=== PATIENT | male | born 1960 | race Caucasian/White ===

== ENCOUNTER 2016-05-30 01:53 | Inpatient (IN) | payer OTHER ==
[2016-05-30] VITALS (7 sets, daily range): BP systolic 116–160; BP diastolic 69–109; PULSE 76–112; TEMP 36.8–37.2; O2SAT 92–97; Ht 172.7 cm; Wt 120.8 kg
[~2016-05-30] VITALS: Ht 172.7 cm; Wt 120.8 kg
[~2016-05-30 01:53] MED LIST: ACT15 PO; ALL300 PO; AMT50 PO; CRD200 PO; FRS/40 PO; GLC500 PO; LISI5TAB3 PO; LPRUNK PO; NABU500T3 PO; OMEP40CA PO; PRAV20TA PO; PRD75 PO; TRAM-10 PO
[2016-05-30] MEDS ORDERED: SODIUM CHLORIDE 0.9% 1000ML 1,000 ML IV ONE (02:00)
[2016-05-30] MEDS ORDERED: SODIUM CHLORIDE 0.9% 1000ML 1,000 ML IV STA ×2 (02:00→02:34)
[2016-05-30 02:12] LABS: HEMATOCRIT 47.7 % (42-52); MEAN CELL VOLUME 83.7 fL (80-100); MEAN CORPUSCULAR HEMOGLOBIN 29.8 pg (25-34); MEAN CORPUSCULAR HGB CONC 35.6 g/dl (32-36); MEAN PLATELET VOLUME 10.1 fL (7.4-10.4); PLATELET COUNT 241 K/uL (130-400); WHITE BLOOD COUNT 21.01 K/uL (4.8-10.8)
[2016-05-30 02:21] LABS: BUN/CREATININE RATIO 12.2 (10-20); CALCIUM 9.2 mg/dl (8.5-10.1); CREATININE 1.5 mg/dl (0.60-1.40); POTASSIUM 3.9 mmol/L (3.5-5.1)
--- NOTE | 2016-05-30 02:22 | EMERGENCY ROOM VISIT NOTE ---
History Report prepared by Loli: Nica Gomes Under the Supervision of: Dr. Kamran Monge M.D. First contact with patient: 01:55 Stated Complaint: ALTERED MENTAL STATUS History of Present Illness The patient is a 56 year old male who presents to the Emergency Room with complaints of a persistent altered mental status that began prior to arrival. Per EMS, ALS was called this evening by the patient's mother because she could not get in touch with the patient. EMS states that the last known well time is unknown. EMS reports that the patient has a history of diabetes and his blood glucose was 208 mg/dL. EMS notes that the patient is warm to touch, but the patient states that he feels chilled. The patient denies any pain or cough. He denies any recent fall. The patient reports medication compliance. The history is limited secondary to altered mental status. Denies headache or other complaints however I'm unsure how reliable the history is. Source of History: patient, EMS History Limited By: AMS Onset: prior to arrival Position: other (global) Quality: other (altered mental status) Associated Symptoms: + chills, No cough Note: Associated Symptoms: blood glucose 208 mg/dL. Review of Systems The history is limited secondary to altered mental status. Past Medical & Surgical Medical Problems: (1) Altered mental status (2) Diabetes Old medical records were reviewed. Nurse's notes were reviewed and I agree with. He does have a history of A. fib. He has a bag full of medicine which includes some psychiatric medications Family History No pertinent family history stated. Social History Marital Status: single Occupation Status: unemployed Current/Historical Medications Scheduled Allopurinol (Zyloprim), 300 MG PO DAILY Amitriptyline Hcl (Elavil), 50 MG PO HS Buspirone Hcl (Buspirone Hcl), 15 MG PO BID Fluoxetine (Prozac), 40 MG PO BID Levothyroxine Sodium (Levothyroxine Sodium), 75 MCG PO DAILY Lisinopril (Zestril), 5 MG PO DAILY Metformin Hcl (Glucophage), 1,500 MG PO DAILY Metoprolol Tartrate (Lopressor) (Lopressor), 50 MG PO BID Omeprazole (Prilosec), 40 MG PO DAILY Pravastatin (Pravachol ), 40 MG PO DAILY Rivaroxaban (Xarelto), 20 MG PO DAILY Trazodone Hcl (Trazodone), 100 MG PO HS Scheduled PRN Acetaminophen (Tylenol), 500 MG PO Q4H PRN for Pain Allergies Uncoded Allergies: BEE STINGS (Allergy, Unknown, UNKNOWN, 05/30/16) SULFA DRUGS (Allergy, Unknown, UNKNOWN, 05/30/16) Physical Exam Vital Signs Date Time Temp Pulse Resp B/P Pulse Ox O2 Delivery O2 Flow Rate FiO2 05/30/16 03:31 101 24 138/86 94 Nasal Cannula 3.0 05/30/16 03:02 95 18 161/96 90 Nasal Cannula 3.0 05/30/16 01:54 39.3 109 23 179/108 95 Room Air Physical Exam General: Middle aged male who is awake answers most questions appropriately, but others not. Mildly agitated at times. HEENT: Normal cephalic atraumatic. Pupils are equal round and reactive to light. SClera anicteric Extraocular movements are intact. Oropharynx is pink with moist mucous membranes. No swelling of the mouth lips or tongue. Neck: Supple with a midline trachea. No meningeal signs or stiffness, no JVD or bruits. No Stridor. Negative Kernig and Brudzinski signs Chest: Clear to auscultation bilaterally. No wheezes or rhonchi. No increased work of breathing. Heart: regular rate and rhythm. Abdomen: Soft nontender, nondistended without rebound guarding or rigidity. Extremities: No cyanosis clubbing or edema. No calf tenderness or assymetry Spine/Back. Non tender to palpation. No CVA tenderness Skin: Warm to touch. Good turgor without rashes. Neurologic exam: Cranial nerves two through 12 are intact. Motor and sensation are intact and symmetrical throughout. Medical Decision & Procedures ER Provider Diagnostic Interpretation: Chest x-ray per my interpretation reveals cardiomegaly, possible infiltrate along right heart border. Limited due to body habitus. CT results as stated below per my review and radiologist interpretation: CT Head: Focal areas of hypoattenuation within the occipital lobes left greater than right, and posterior left temporal lobe. Findings likely represent remote infarcts. If there is clinical concern for infection, consider MRI with contrast. Presumed remote lacunar infarcts within the bilateral basal ganglia. Small vessel ischemic disease. The sinuses are patent. No acute osseous abnormality. Radiologist: Rehan Villegas MD Study ready at 024 and initial results transmitted at 0231. Laboratory Results Test 05/30/16 01:20 05/30/16 02:00 05/30/16 02:05 05/30/16 02:17 RDW Standard Deviation 41.0 fL (36.4-46.3) RDW Coefficient of Variation 13.5 % (11.5-14.5) White Blood Count 21.01 K/uL (4.8-10.8) Red Blood Count 5.70 M/uL (4.7-6.1) Hemoglobin 17.0 g/dL (14.0-18.0) Hematocrit 47.7 % (42-52) Mean Corpuscular Volume 83.7 fL (80-100) Mean Corpuscular Hemoglobin 29.8 pg (25-34) Mean Corpuscular Hemoglobin Concent 35.6 g/dl (32-36) Platelet Count 241 K/uL (130-400) Mean Platelet Volume 10.1 fL (7.4-10.4) Neutrophils (%) (Auto) 94.2 % Lymphocytes (%) (Auto) 3.9 % Monocytes (%) (Auto) 1.6 % Eosinophils (%) (Auto) 0.0 % Basophils (%) (Auto) 0.0 % Neutrophils # (Auto) 19.78 K/uL (1.4-6.5) Lymphocytes # (Auto) 0.81 K/uL (1.2-3.4) Monocytes # (Auto) 0.34 K/uL (0.11-0.59) Eosinophils # (Auto) 0.00 K/uL (0-0.5) Basophils # (Auto) 0.01 K/uL (0-0.2) Immature Granulocyte % (Auto) 0.3 % Immature Granulocyte # (Auto) 0.07 K/uL (0.00-0.02) Toxic Granulation 1+ Erythrocyte Sedimentation Rate 21 mm/hr (0-14) Prothrombin Time 12.6 SECONDS (9.0-12.0) Prothromb Time International Ratio 1.2 (0.9-1.1) Activated Partial Thromboplast Time 30.0 SECONDS (21.0-31.0) Partial Thromboplastin Ratio 1.2 Est Creatinine Clear Calc Drug Dose 71.4 ml/min Uric Acid 7.4 mg/dl (2.6-7.2) Direct Bilirubin 0.1 mg/dl (0-0.2) Total Creatine Kinase 577 U/L (39-308) Creatine Kinase MB 3.7 ng/ml (0.5-3.6) Troponin I 0.367 ng/ml (0-0.045) Lipase 103 U/L (73-393) Prostate Specific Antigen 0.969 ng/ml (0.000-4.000) Procalcitonin 0.24 ng/mL (0-0.5) Thyroid Stimulating Hormone (TSH) 2.580 uIu/ml (0.300-4.500) Salicylates Level < 1.7 mg/dl (2.8-20) Acetaminophen Level < 2 ug/ml (10-30) Rapid Plasma Reagin NONREACTIVE (NONREACT) Lyme Disease IgG Antibody NEG (NEG) Lyme Disease IgM Antibody NEG (NEG) Creatine Kinase MB Ratio (0-3.0) Ethyl Alcohol mg/dL < 3.0 mg/dl (0-3) Bedside Lactic Acid Venous 3.51 mmol/L (0.90-1.70) Test 05/30/16 02:19 05/30/16 02:25 05/30/16 03:38 Bedside Troponin I 0.280 ng/ml (0-0.045) Urine Opiates Screen NEG (NEG) Urine Methadone, Qualitative NEG (NEG) Urine Barbiturates NEG (NEG) Urine Phencyclidine (PCP) Level NEG (NEG) Ur Amphetamine/Methamphetamine NEG (NEG) MDMA (Ecstasy) Screen NEG (NEG) Urine Benzodiazepines Screen NEG (NEG) Urine Cocaine Metabolite NEG (NEG) Urine Marijuana (THC) POS (NEG) Laboratory studies as stated above per my review. Medications Administered Medications (Trade) Dose Ordered Sig/Baljinder Route Start Time Stop Time Status Last Admin Dose Admin Sodium Chloride 1,000 ml @ 999 mls/hr Q1H1M STAT IV 05/30/16 02:00 05/30/16 03:00 DC 05/30/16 02:00 999 MLS/HR Sodium Chloride (Nss 1000ml) 1,000 ml @ 150 mls/hr Q6H40M ONCE IV 05/30/16 02:00 05/30/16 06:13 DC 05/30/16 02:00 150 MLS/HR Piperacillin Sod/ Tazobactam Sod (Zosyn Iv) 4.5 gm NOW STAT IV 05/30/16 02:29 05/30/16 02:30 DC 05/30/16 02:45 4.5 GM Lorazepam 1 mg 1 mg NOW STAT IV 05/30/16 02:33 05/30/16 02:34 DC 05/30/16 02:45 1 MG Sodium Chloride 1,000 ml @ 999 mls/hr Q1H1M STAT IV 05/30/16 02:34 05/30/16 03:34 DC 05/30/16 02:46 999 MLS/HR Daptomycin/Sodium Chloride (Cubicin IV/Nss 50ml) 64.6 ml @ 100 mls/hr ONE STAT IV 05/30/16 02:47 05/30/16 03:25 DC 05/30/16 03:27 100 MLS/HR Acetaminophen (Tylenol Supp) 325 mg STK-MED ONCE OH 05/30/16 02:50 05/30/16 02:54 DC 05/30/16 02:50 325 MG Acetaminophen 650 mg 650 mg STK-MED ONCE OH 05/30/16 02:50 05/30/16 02:54 DC 05/30/16 02:50 650 MG Ceftriaxone Sodium 2000 mg/ Dextrose 70 ml @ 100 mls/hr NOW STAT IV 05/30/16 03:37 05/30/16 04:18 DC 05/30/16 03:53 100 MLS/HR Dexamethasone Sodium Phosphate/ Syringe (Decadron Inj/ Syringe) 2.5 ml @ 1 mls/min NOW STAT IV 05/30/16 03:36 05/30/16 03:38 DC 05/30/16 03:56 1 MLS/MIN ECG Indication: altered mental status Rate (beats per minute): 100 Rhythm: other (poor baseline, susepct A-fib) Findings: RBBB, no acute ischemic change Comparison ECG Date: 12/11/13 Change: EKG Change: When compared to EKG done on 12/11/13, A-fib is now present, bundle branch block is old. ED Course 0157: Past medical records reviewed. The patient was evaluated in room B9, and a complete history and physical examination were performed. 0200: Ordered Sodium Chloride 1000 ml @ 150 mls/hr IV, Sodium Chloride 1000 ml @ 999 mls/hr IV. 0229: Ordered Zosyn IV 4.5 gm IV. 0230: I reevaluated the patient at this time. He will be evaluated for further treatment. 0233: ordered Ativan Inj 1 mg IV. 0234: Ordered Sodium Chloride 1000 ml @ 999 mls/hr IV. 0247: Ordered Daptomycin 730 mg/Sodium Chloride 64.6 ml @ 100 mls/hr IV. 0250: I reevaluated the patient and he just arrived back from CT and is much calmer. Ordered Tylenol Supp 650 mg OH, Tylenol Supp 325 mg OH. 0300: I discussed the patients case with Dr. Black, [facility] Resident. She is going to evaluate the patient for further treatment. 0330: I discussed the patient's case with Dr. Novoa [facility]. He saw the patient and he is going to place the patient on steroids for further antibiotics and antivirals for possible encephalitis or meningitis. Medical Decision Differentials include, but are not limited to; sepsis, UTI, pneumonia, intracranial process, toxicologic process, serotonin syndrome, electrolyte or metabolic abnormality, encephalitis. This patient comes in as described above. He was placed in room B9. Here for treatment and evaluation of altered mental status. Upon initial evaluation to the ER he did answer some questions appropriately but others not. He feels warm we checked vital signs he does have a high temperature of 39 and he's tachycardic and hypertensive. IV access established and a significant workup was obtained with concern for probable sepsis/infection. Chest Xray is limited due to his body habitus but it is hard to rule out the possibility of a pneumonia along the right heart border initial urine did not suggest a UTI. He has an elevated white count his lactic acid is also elevated at 3. His cardiac enzymes are borderline elevated. His EKG shows atrial fibrillation with a right bundle branch block. The right bundle branch block is old when compared to old EKG. CAT scan his head shows some old infarcts or other abnormalities and temporal area. The patient does not have any meningeal signs but based on this presentation encephalitis is certainly in the differential. He could have herpes encephalitis. I did treat the patient aggressively when he first came in with antibiotics as I was concerned initally with bacterial sepsis. He also was given Tylenol. He was empirically given Zosyn 4.5 g IV as well as daptomycin IV for broad-spectrum coverage. Dr. Gonzalez and the admitting team have seen in the ER and they've also added [employer] PROFESSOR antibiotics as well as IV acyclovir and IV Decadron to cover the possibility of encephalitis. The patient will likely need further imaging and CSF while in the hospital. At this point given his agitation as large body habitus it would be very hard to get this acutely and they are going to order this under fluoroscopy. The patient has been given Ativan and is less agitated. It seems like the Rodriguez catheter agitated and the most. he's been covered with antibiotics antivirals and given IV resuscitation and will be admitted for further treatment and evaluation. Consults Time Called: [phone] Consulting Physician: Dr. Black, [facility] Resident Returned Call: [phone] I discussed the patients case with Dr. Black, [facility] Resident. She is going to evaluate the patient for further treatment. Impression Primary Impression: Sepsis Additional Impression: Altered mental status Critical Care I have personally spent greater than 30 minutes of critical care time in the direct management of this patient. This includes bedside care, interpretation of diagnostic studies, and testing, discussion with consultants, patient, and family members, and other required patient management activities. This 30 minutes is in excess of all separately billable procedures. Scribe Attestation The scribe's documentation has been prepared under my direction and personally reviewed by me in its entirety. I confirm that the note above accurately reflects all work, treatment, procedures, and medical decision making performed by me. Departure Information Dispostion Being Evaluated By Hospitalist Referrals Ginny Araujo N.P. (PCP) Problem Qualifiers
[2016-05-30 02:23] LABS: INR 1.2 (0.9-1.1); PARTIAL THROMBOPLASTIN RATIO 1.2; PROTHROMBIN TIME (PATIENT) 12.6 SECONDS (9.0-12.0)
[2016-05-30] MEDS ORDERED: PIPERACILLIN/TAZOBACTAM 4.5 GM/100ML D5W IV STA (02:29)
[2016-05-30 02:32] LABS: CKMB/CK RATIO 0.6 (0-3.0); THYROID STIMULATING HORMONE 2.58 uIu/ml (0.300-4.500)
[2016-05-30 02:33] LABS: BASO ABS # 0.01 K/uL (0-0.2); COMPLETE YES; IG% 0.3 %; LYMPH % 3.9 %; LYMPH ABS # 0.81 K/uL (1.2-3.4); MONO % 1.6 %; NEUT % 94.2 %; TOXIC GRANULATION 1+
[2016-05-30] MEDS: ACETAMINOPHEN 500 MG TAB PO STA ×2 (02:33→02:45)
[2016-05-30] MEDS ORDERED: LORAZEPAM 2 MG/ML 1 ML VIAL IV STA (02:33)
[2016-05-30 02:41] LABS: ACETAMINOPHEN < 2 ug/ml (10-30)
[2016-05-30] MEDS ORDERED: SODIUM CHLORIDE 0.9% IV STA (02:47)
[2016-05-30] MEDS ORDERED: DAPTOMYCIN IV STA (02:47)
[2016-05-30] MEDS ORDERED: ACETAMINOPHEN 650 MG SUPP PR ONE (02:50)
[2016-05-30] MEDS ORDERED: ACETAMINOPHEN 325 MG SUPP PR ONE (02:50)
[2016-05-30 02:56] LABS: BENZODIAZEPINE, URINE NEG (NEG); COCAINE,URINE NEG (NEG); PHENCYCLIDINE, URINE NEG (NEG)
[2016-05-30] MEDS ORDERED: ALLO300T2 PO (03:09)
[2016-05-30] MEDS ORDERED: METO50TA16 PO (03:11)
[2016-05-30] MEDS ORDERED: OMEP40CA41 PO (03:12)
[2016-05-30] MEDS ORDERED: LEVO75TA5 PO (03:15)
[2016-05-30] MEDS ORDERED: FLUO40CA8 PO (03:17)
--- NOTE | 2016-05-30 03:18 | History and Physical ---
History & Physical Date & Time of Service: May 30, 2016 at 03:15 Chief Complaint: Altered Mental Status Primary Care Physician: No Doctor, Assigned History of Present Illness Source: hospital records, EMS Abdoul is a 56-year-old male with history of atrial fibrillation, on Pradaxa, who presents with altered mental status. History was limited from the patient and he is confused. On review of records he has not been to this hospital since 2014, when he came for an outpatient ultrasound, and was only ever in the hospital in 2010 when he was cardioverted. By his bedside is a bag of multiple medications, many of which are opened/broken and mixed up. Per EMS records, the patients mother called the ambulance when she was unable to get a hold of them for a few days. He has been confused ever since arrival. Patient currently denies any pain. He denies any drug use apart from smoking marijuana. He does not know where he has been the last few days. Past Medical/Surgical History Diabetes, Atrial fibrillation Family History Family history unknown at this point Social History Smoking Status: Unknown if Ever Smoked Marital Status: single Occupational Status: unemployed Multi-Drug Resistant Organisms History of MDRO: No Allergies Uncoded Allergies: BEE STINGS (Allergy, Unknown, UNKNOWN, 05/30/16) SULFA DRUGS (Allergy, Unknown, UNKNOWN, 05/30/16) Home Medications Scheduled Allopurinol (Zyloprim), 300 MG PO DAILY Amitriptyline Hcl (Elavil), 50 MG PO HS Buspirone Hcl (Buspirone Hcl), 15 MG PO BID Fluoxetine (Prozac), 40 MG PO BID Levothyroxine Sodium (Levothyroxine Sodium), 75 MCG PO DAILY Lisinopril (Zestril), 5 MG PO DAILY Metformin Hcl (Glucophage), 1,500 MG PO DAILY Metoprolol Tartrate (Lopressor) (Lopressor), 50 MG PO BID Omeprazole (Prilosec), 40 MG PO DAILY Pravastatin (Pravachol ), 40 MG PO DAILY Rivaroxaban (Xarelto), 20 MG PO DAILY Trazodone Hcl (Trazodone), 100 MG PO HS Scheduled PRN Acetaminophen (Tylenol), 500 MG PO Q4H PRN for Pain Review of Systems Review systems was unable to be obtained due to the patient's mental status Physical Exam Vital Signs Date Time Temp Pulse Resp B/P Pulse Ox O2 Delivery O2 Flow Rate FiO2 05/30/16 03:02 95 18 161/96 90 Nasal Cannula 3.0 05/30/16 01:54 39.3 109 23 179/108 95 Room Air GENERAL: Awake, trying to move around frequently, pulling lines out. Answers questions occasionally HENT: Normocephalic, atraumatic. Pupils midsize, equal and reactive Oropharynx unremarkable. NECK: Supple. No nuchal rigidity. FROM. RESPIRATORY: CTA CARDIAC: RRR. Extremities warm and well perfused. ABDOMEN: Soft, non distended. No tenderness to palpation. No rebound or guarding. No masses. MUSCULOSKELETAL: Unremarkable. EXTREMITIES: No edema. No discoloration. Gross motor strength 5/5 bilaterally. NEURO: Would not comply with neurological exam. Oriented to person, but not time or place. SKIN: No rash or jaundice noted. LYMPH: No adenopathy. Diagnostics Laboratory Results Results Past 24 Hours Test 05/30/16 01:20 05/30/16 02:00 05/30/16 02:05 05/30/16 02:17 Range/Units White Blood Count 21.01 4.8-10.8 K/uL Red Blood Count 5.70 4.7-6.1 M/uL Hemoglobin 17.0 14.0-18.0 g/dL Hematocrit 47.7 42-52 % Mean Corpuscular Volume 83.7 80-100 fL Mean Corpuscular Hemoglobin 29.8 25-34 pg Mean Corpuscular Hemoglobin Concent 35.6 32-36 g/dl Platelet Count 241 130-400 K/uL Mean Platelet Volume 10.1 7.4-10.4 fL Neutrophils (%) (Auto) 94.2 % Lymphocytes (%) (Auto) 3.9 % Monocytes (%) (Auto) 1.6 % Eosinophils (%) (Auto) 0.0 % Basophils (%) (Auto) 0.0 % Neutrophils # (Auto) 19.78 1.4-6.5 K/uL Lymphocytes # (Auto) 0.81 1.2-3.4 K/uL Monocytes # (Auto) 0.34 0.11-0.59 K/uL Eosinophils # (Auto) 0.00 0-0.5 K/uL Basophils # (Auto) 0.01 0-0.2 K/uL RDW Standard Deviation 41.0 36.4-46.3 fL RDW Coefficient of Variation 13.5 11.5-14.5 % Immature Granulocyte % (Auto) 0.3 % Immature Granulocyte # (Auto) 0.07 0.00-0.02 K/uL Toxic Granulation 1+ Prothrombin Time 12.6 9.0-12.0 SECONDS Prothromb Time International Ratio 1.2 0.9-1.1 Activated Partial Thromboplast Time 30.0 21.0-31.0 SECONDS Partial Thromboplastin Ratio 1.2 Sodium Level 141 136-145 mmol/L Potassium Level 3.9 3.5-5.1 mmol/L Chloride Level 106 98-107 mmol/L Carbon Dioxide Level 18 21-32 mmol/L Anion Gap 17.0 3-11 mmol/L Blood Urea Nitrogen 18 7-18 mg/dl Creatinine 1.50 0.60-1.40 mg/dl Est Creatinine Clear Calc Drug Dose 71.4 ml/min Estimated GFR () 60.3 Estimated GFR (Non- 52.0 BUN/Creatinine Ratio 12.2 10-20 Random Glucose 208 70-99 mg/dl Calcium Level 9.2 8.5-10.1 mg/dl Total Bilirubin 0.6 0.2-1 mg/dl Direct Bilirubin 0.1 0-0.2 mg/dl Aspartate Amino Transf (AST/SGOT) 18 15-37 U/L Alanine Aminotransferase (ALT/SGPT) 21 12-78 U/L Alkaline Phosphatase 70 45-117 U/L Total Creatine Kinase 577 39-308 U/L Creatine Kinase MB 3.7 0.5-3.6 ng/ml Creatine Kinase MB Ratio 0.6 0-3.0 Total Protein 8.4 6.4-8.2 gm/dl Albumin 4.3 3.4-5.0 gm/dl Lipase 103 73-393 U/L Thyroid Stimulating Hormone (TSH) 2.580 0.300-4.500 uIu/ml Salicylates Level < 1.7 2.8-20 mg/dl Acetaminophen Level < 2 10-30 ug/ml Ethyl Alcohol mg/dL < 3.0 0-3 mg/dl Bedside Lactic Acid Venous 3.51 0.90-1.70 mmol/L Test 05/30/16 02:19 3/23/17 02:25 Range/Units Bedside Troponin I 0.280 0-0.045 ng/ml Urine Opiates Screen NEG NEG Urine Methadone, Qualitative NEG NEG Urine Barbiturates NEG NEG Urine Phencyclidine (PCP) Level NEG NEG Ur Amphetamine/Methamphetamine NEG NEG MDMA (Ecstasy) Screen NEG NEG Urine Benzodiazepines Screen NEG NEG Urine Cocaine Metabolite NEG NEG Urine Marijuana (THC) POS NEG Microbiology Results 05/30/16 Blood Culture, Received Pending 05/30/16 Blood Culture, Received Pending 05/30/16 Urine Culture, Joie Batch Pending Diagnostic Radiology [facility] report: CT Head: Focal areas of hypoattenuation within the occipital lobes left greater than right, and posterior left temporal lobe. Findings likely represent remote infarcts. If there is clinical concern for infection, consider MRI with contrast. Presumed remote lacunar infarcts within the bilateral basal ganglia. Small vessel ischemic disease. The sinuses are patent. No acute osseous abnormality. Radiologist: Rehan Villegas MD EKG Atrial fibrillation, no ST elevation No change from prior EKG Impression Assessment and Plan 56 yo M with acute metabolic encephalopathy and sepsis, with unclear etiology. Top differential is meningitis / encephalitis, though would also consider: toxin induced, hypo/hyperglycemia, endocarditis, lyme / ehrlichiosis, herpes / syphilis, pneumonia. Plan: Acute metabolic encephalopathy - Needs MRI, but unable to obtain now due to hyperactive state. As this will not currently change our management we will start with empiric treatment first. - LP under fluoroscopy. Ativan 1mg ordered for sedation prior to this. - Will empirically treat for meningitis as cause with Ceftriaxone 2g daily, Vancomycin, and Acyclovir. - We will also provide decadron 10mg now, and then 4mg q6h IV after that - Other labwork for various infectious (CSF studies, PSA for prostatitis, Lyme/ Ehrlichiosis) and immunological sources (with VAHID/ANCA) obtained, as well as ESR and procalcitonin - We will obtain echocardiogram and consult Cardiology as there is a concern for endocarditis with his areas of infarct (potentially septic emboli) on CT scan - We will obtain urine drug screen for potential toxin misuse - 1 to 1 monitoring Sepsis, unclear etiology - Received IV fluids - Blood and urine cultures obtained prior to broad spectrum abx administration ( received Zosyn and Daptomycin in ED) - Will repeat lactic acid within 6 hours of arrival Elevated troponin - Will trend cardiac enzymes - Telemetry monitoring Type 2 DM - Hold home medications - Glycemic consult Contact precautions FULL Resuscitation Will defer to day team to contact his mother to establish his baseline Level of Care Telemetry Resuscitation Status FULL RESUSCITATION VTE Prophylaxis Given or contraindicated: SCD's Resident Tracking Resident Involvement: Resident Care Provided Care Provided: [facility] Medicine Assessment and Plan Attending Addendum: I have physically seen and examined this patient, have directed their medical care, have supervised the medical residents activities, and agree with the H&P as noted above, with the following changes: The patient is awake, oriented 1, hyperactive, asks repetitive questions, not agitated, otherwise in no acute distress. HEENT--PERRL, EOMI, mucous membranes and oropharynx dry. Neck--supple, no JVD or bruits, thyroid normal, trachea midline, no adenopathy. Heart--mildly tachycardic and regular, no extra beats, no murmurs, rubs or gallops. Lungs--clear bilaterally , no respiratory distress, no accessory muscle use. Abdomen--normal bowel sounds and soft, nontender and nondistended, no hernias or masses, no organomegaly. Extremities--no cyanosis, clubbing or edema. There are good distal pulses b/l. Dermatologic--normal skin turgor, normal color, warm and dry, no abnormal lymph nodes, no rash. Neurologic--cranial nerves II through XII grossly intact. Rheumatologic--normal range of motion, nontender, muscles and joints. Psychiatric--disoriented, hyperactive Assessment and Plan: Altered mental status-there is a wide differential involved. He'll be treated empirically for central nervous system process with acyclovir IV, ceftriaxone 2 g IV every 12 hours, vancomycin IV per renal dosing, Decadron 10 mg IV now and then 4 mg IV every [address] an order for a fluoroscopy-guided LP. Consult infectious disease. We'll order a sedimentation rate, VAHID, ANCA, Lyme, Ehrlichiosis, RPR, LP studies , bacterial cultures, viral studies, fungal studies, Place a PPD. CT of the brain suggested the possibility of multiple infarcts. Also be concerned about the possibility of septic emboli, subacute bacterial endocarditis,, meningitis, encephalitis among others. Atrial fibrillation/elevated troponin/hypertension--continue metoprolol tartrate , and lisinopril. Hold Lasix. Continue Pradaxa 150 mg by mouth twice a day and amiodarone 200 mg by mouth twice a day. Follow on telemetry for serial cardiac enzymes, arrhythmia, and order a 2-D echocardiogram with Dopplers. Consult cardiology for a RENATA. Diabetes mellitus--hold metformin and pioglitazone. Continue glipizide ER. Place on Accu-Cheks before meals and at bedtime with NovoLog coverage. Gout--continue allopurinol, check a uric acid level. Hypothyroidism --continue levothyroxine sodium 75 g by mouth daily. GERD--change omeprazole 40 mg by mouth daily to pantoprazole 40 mg by mouth daily. Hyperlipidemia--continue Pravachol 40 mg by mouth daily. Depression--continue fluoxetine 40 mg by mouth twice a day, hold amitriptyline 50 mg by mouth at bedtime.
[2016-05-30] MEDS ORDERED: METF-384 PO (03:24)
[2016-05-30] MEDS ORDERED: ACET-1256 PO (03:30)
[2016-05-30] MEDS ORDERED: RIVA1TAB4 PO (03:31)
[2016-05-30] MEDS ORDERED: DEXAMETHASONE INJ 10 MG in SYRINGE 0 ML IV STA (03:36)
[2016-05-30] MEDS ORDERED: CEFTRIAXONE SOD INJ 2,000 MG in DEXTROSE 5% 50ML 50 ML IV STA (03:37)
[2016-05-30] MEDS ORDERED: TRAZ100T29 PO (03:41)
[2016-05-30] MEDS ORDERED: BUSP30TA2 PO (03:43)
[2016-05-30] MEDS ORDERED: ONDANSETRON INJ 2 MG/ML 2 ML VIAL IV PRN (03:45)
[2016-05-30] MEDS ORDERED: GLUCOSE 40% GEL 15 GM TUBE PO PRN ×2 (03:45→06:30)
[2016-05-30] MEDS ORDERED: DEXTROSE 50% 50 ML SYR IV PRN ×2 (03:45→06:30)
[2016-05-30] MEDS ORDERED: LORAZEPAM 2 MG/ML 1 ML VIAL IV PRN (03:45)
[2016-05-30] MEDS ORDERED: GLUCOSE 10 TABS/TUBE PO PRN ×2 (03:45→06:30)
[2016-05-30] MEDS ORDERED: GLUCAGON FOR INJ 1 MG VIAL SQ PRN ×2 (03:45→06:30)
[2016-05-30] MEDS ORDERED: PHARMACY GLYCEMIC MGMT CONSULT PRN (03:55)
[2016-05-30 04:27] LABS: PROSTATE SPECIFIC ANTIGEN 0.969 ng/ml (0.000-4.000)
[2016-05-30 04:37] LABS: LYME DISEASE AB IGG NEG (NEG); LYME DISEASE AB IGM NEG (NEG)
[2016-05-30 05:02] LABS: URIC ACID 7.4 mg/dl (2.6-7.2)
[2016-05-30 05:19] LABS: URINE APPEARANCE TURBID (CLEAR); URINE BILIRUBIN NEG (NEG); URINE COLOR YELLOW; URINE NITRITE NEG (NEG); URINE SPECIFIC GRAVITY 1.023 (1.000-1.030); UROBILINOGEN NEG (NEG)
[2016-05-30 05:25] LABS: MANUAL MICROSCOPIC REQUIRED? NO; REVIEW REQ? NO
[2016-05-30] MEDS ORDERED: VANCOMYCIN CONSULT ACTIVE PRN (06:15)
[2016-05-30] MEDS: NSS + 20MEQ KCL 1000ML 1,000 ML IV SCH ×2 (06:41→20:45)
[2016-05-30] MEDS: ACYCLOVIR SOD INJ 750 MG in DEXTROSE 5% 250ML 250 ML IV SCH ×3 (06:41→20:50)
[2016-05-30] MEDS: INSULIN ASPART 100 UNITS/ML 3 ML PEN SC SCH ×4 (07:00→20:49)
[2016-05-30 07:10] LABS: BASO % 0.1 %; BASO ABS # 0.01 K/uL (0-0.2); COMPLETE YES; HEMATOCRIT 45.8 % (42-52); IG% 0.2 %; LYMPH % 5.9 %; LYMPH ABS # 0.96 K/uL (1.2-3.4); MEAN CELL VOLUME 85.4 fL (80-100); MEAN CORPUSCULAR HEMOGLOBIN 30.2 pg (25-34); MEAN CORPUSCULAR HGB CONC 35.4 g/dl (32-36); MEAN PLATELET VOLUME 10.2 fL (7.4-10.4); MONO % 0.8 %; PLATELET COUNT 196 K/uL (130-400); RED BLOOD COUNT 5.36 M/uL (4.7-6.1); WHITE BLOOD COUNT 16.17 K/uL (4.8-10.8)
--- NOTE | 2016-05-30 07:19 | DIAGNOSTIC IMAGING REPORT ---
HEAD CT NONCONTRAST CT DOSE: 614.27 mGy.cm HISTORY: Mental status change altered loc TECHNIQUE: Multiaxial CT images of the head were performed without the use of intravenous contrast. Comparison: None. Findings: The paranasal sinuses and mastoid air cells are clear. Findings of old left and to lesser extent right occipital lobe infarct. No acute intracranial hemorrhage. No deviation of midline structures. Small old periventricular infarct of the right. No evidence for acute intracranial hemorrhage. 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 No acute process. Electronically signed by: Julian Girard M.D. 05/30/2016 7:18 AM Dictated Date/Time: 05/30/2016 7:15 AM
--- NOTE | 2016-05-30 07:27 | DIAGNOSTIC IMAGING REPORT ---
CHEST ONE VIEW PORTABLE HISTORY: Atypical CHEST PAIN COMPARISON: Chest 07/16/2013. FINDINGS: Cardiac silhouette remains mildly enlarged. There is mild central pulmonary vascular congestion without overt edema. No pneumothorax. There is respiratory motion. No focal lung consolidations to suggest pneumonia. No pleural effusions. IMPRESSION: Stable cardiomegaly with mild central pulmonary vascular congestion. Electronically signed by: Wiliam Negron M.D. 05/30/2016 7:26 AM Dictated Date/Time: 05/30/2016 7:25 AM
[2016-05-30 07:46] LABS: BUN/CREATININE RATIO 12.9 (10-20); CALCIUM 8.9 mg/dl (8.5-10.1); CREATININE 1.3 mg/dl (0.60-1.40); POTASSIUM 3.8 mmol/L (3.5-5.1)
[2016-05-30] MEDS ORDERED: VANCOMYCIN INJ 2,800 MG in SODIUM CHLORIDE 0.9% 500ML 500 ML IV SCH (08:00)
[2016-05-30] MEDS ORDERED: PERFLUTREN LIPID MICROSPHERE (DEFINITY) IV ONE (08:39)
[2016-05-30] MEDS ORDERED: VANCOMYCIN INJ 1,000 MG in SODIUM CHLORIDE 0.9% 250ML 250 ML IV SCH (09:00)
[2016-05-30 09:40] LABS: CKMB/CK RATIO 0.4 (0-3.0)
[2016-05-30] MEDS: DEXAMETHASONE INJ 4 MG in SYRINGE 0 ML IV SCH ×3 (10:46→20:50)
--- NOTE | 2016-05-30 11:02 | Family Medicine Progress Note ---
Progress Note Date of Service May 30, 2016. Subjective Pt evaluation today including: conversation w/ patient, physical exam, chart review, lab review The patient was seen and examined at bedside at approximately 7:30AM. Patient is restless and verbalizing wanting to get out of bed. Patient speaks functionally appropriately with words in the right place but cannot provide a good history and he is not oriented to place and time. Patient is on 1-1 for pulling at his marcano catheter and IV site. Telemetry monitoring showed Afib in the 100s. Patient denies having any pain. Plan of care was described to the patient and all questions were answered. ROS: Denies chest pain, denies SOB, denies abdominal pain. According to nurse no diarrhea or lose stools. Nurse is trying to contact family, as of 10:51 the nurse still has not heard back from immediate family. According to overnight team mother is the one who called EMS on patient when she didn't hear from him, however patient reports that both of his parents are . Pt examined at 11:30am and showed clinical improvement. Was able to hold a conversation, was able to tell me where he was, told me who his best friend was -> Nadeem Leon, and he takes care of Coni Reyes's dog periodically. Not , no IV drug use, smokes marijuana every second day, pt used to drink but denies any alcohol use. According to the 1 to 1 nurse the patient is periodically complaining of headache, back pain and neck pain, when solicited the patient states that this pain is minimal. 3:20pm. Patient has much more improved mental status, complains of a 2/10 headache when asked. Patient feels good. Is now oriented to person, place and time. Is answering questions appropriately. Still has some confusion regarding his clinical course and how he was feeling yesterday. Patient can recall who the president is, recalls meeting me earlier. Nadeem Reyes was also present at bedside - confirms that the pt lives by himself, doesn't drink, doesn't do IV drugs, only social contact is baby sitting a dog. Constitutional: No chills, No fever Respiratory: No cough, No shortness of breath, No sputum, No wheezing Cardiovascular: No chest pain Male : No dysuria Objective Physical Exam General Appearance: WD/WN, + mild distress, + pertinent finding Eyes: normal inspection, PERRL, EOMI, + pertinent finding (pupillary exam was difficult to assess because the patient is unable to keep his head looking forward. ) Neck: supple, no adenopathy Respiratory/Chest: chest non-tender, lungs clear, normal breath sounds, no respiratory distress, no accessory muscle use, + pertinent finding (Patient was able to sit up to assess posterior lung sounds. ) Cardiovascular: no JVD, no murmur, + tachycardia, + irregularly irregular Extremities: no pedal edema, + pertinent finding (right calf tenderness, no tenderness to palpation of the spine, no paraspinal tenderness. ) Neurologic/Psychiatric: alert, + pertinent finding (Patient is only oriented to person. Not place or time. No comfabulation. ) Skin: normal color, warm/dry, no rash Assessment and Plan 56M with acute metabolic encephalopathy and sepsis, with unclear etiology. According to H&P, pt's mom called EMS after not hearing from her son. Pt reports that both of his parents are . Top differential is meningitis / encephalitis, though would also consider: toxin induced, hypo/hyperglycemia, endocarditis, lyme / ehrlichiosis, herpes / syphilis, pneumonia. Acute metabolic encephalopathy, suspicious for meningitis/encephalitis - AMS continues, according to 1 to 1 nurse patient has periods of lucent intervals (requesting certain TV show on the TV). Patient denies any trauma, substance abuse, accidental ingestion of medications or recent syncope. Pt denies knowledge of why he is in the hospital. - CT head shows several old intracranial infarcts. No acute process. - Needs MRI, but unable to obtain now due to hyperactive state. As this will not currently change our management we will start with empiric treatment first. - LP under fluoroscopy. Ativan 1mg ordered for sedation prior to this. - Continue empiric treatmentf for treat for meningitis as cause with Ceftriaxone 2g daily, Vancomycin, and Acyclovir. - We will also provide decadron 10mg now, and then 4mg q6h IV after that - Other labwork for various infectious (CSF studies, PSA for prostatitis, Lyme/ Ehrlichiosis) and immunological sources (with VAHID/ANCA) obtained, as well as ESR and procalcitonin - We will obtain echocardiogram and consult Cardiology as there is a concern for endocarditis with his areas of infarct (potentially septic emboli) on CT scan - Urine tox screen positive for marijuana. - 1 to 1 monitoring due to pulling out IV and marcano. - Lyme negative, RPR negative so far. Elevated Troponins - Telemetry monitoring showed Afib in the 100s. - Troponin is elevated to 1.45, CKMB :CK ratio is WNL. - Cardiology on board. Sepsis, unclear etiology - Received IV fluids - Blood and urine cultures obtained prior to broad spectrum abx administration ( received Zosyn and Daptomycin in ED) - Lactic Acid WNL, continue to trend. Type 2 DM - Hold home medications - Glycemic consult Dispo: Contact precautions, Tele, Full Code Resident Involvement: Resident Care Provided Care Provided: Adult Hospital Medicine
--- NOTE | 2016-05-30 11:30 | Pharmacy Progress Note ---
Pharmacy Antibiotic Consult Date of Service: May 30, 2016. Pharmacy Dosing Scope Pharmacy is consulted to initiate vancomycin IV dosing therapy, order appropriate labs and adjust drug dose/frequency. Subjective The patient is a 56 year old male admitted on May 30, 2016 at 03:38 for altered mental status. Patient started empirically on vancomycin, acyclovir and Rocephin for possible meningitis. There is also concern for possible endocarditis. Objective Height (Feet): 5 Height (Inches): 8.00 Weight (Kilograms): 120.100 (BMI = 40) Lab Results (24hrs): Laboratory Tests Test 05/30/16 01:20 05/30/16 06:56 BUN/Creatinine Ratio 12.2 12.9 Blood Urea Nitrogen 18 mg/dl 17 mg/dl Creatinine 1.50 mg/dl 1.30 mg/dl White Blood Count 21.01 K/uL 16.17 K/uL Red Blood Count 5.70 M/uL 5.36 M/uL Hemoglobin 17.0 g/dL 16.2 g/dL Hematocrit 47.7 % 45.8 % Mean Corpuscular Volume 83.7 fL 85.4 fL Mean Corpuscular Hemoglobin 29.8 pg 30.2 pg Mean Corpuscular Hemoglobin Concent 35.6 g/dl 35.4 g/dl Platelet Count 241 K/uL 196 K/uL Mean Platelet Volume 10.1 fL 10.2 fL Neutrophils (%) (Auto) 94.2 % 93.0 % Lymphocytes (%) (Auto) 3.9 % 5.9 % Monocytes (%) (Auto) 1.6 % 0.8 % Eosinophils (%) (Auto) 0.0 % 0.0 % Basophils (%) (Auto) 0.0 % 0.1 % Neutrophils # (Auto) 19.78 K/uL 15.03 K/uL Lymphocytes # (Auto) 0.81 K/uL 0.96 K/uL Monocytes # (Auto) 0.34 K/uL 0.13 K/uL Eosinophils # (Auto) 0.00 K/uL 0.00 K/uL Basophils # (Auto) 0.01 K/uL 0.01 K/uL Micro Results: Item Value Date Time Urine Culture Received 05/30/16 0505 Urine,Catheterized Pending Acid Fast Stain Joie Batch 05/30/16 0338 Cerebral Spinal Fluid Pending Cryptococcal Antigen Joie Batch 05/30/16 0338 Cerebral Spinal Fluid Pending Fungal Culture Joie Batch 05/30/16 0338 Cerebral Spinal Fluid Pending Gram Stain Joie Batch 05/30/16 0338 Cerebral Spinal Fluid Pending Blood Culture Received 05/30/16 0210 Blood Pending Blood Culture Received 05/30/16 0205 Blood Pending Recent Pertinent Medications Item Value Date Time Ceftriaxone 70 ml @ 100 mls/hr 05/31/16 0400 Sodium 2000 mg/ Q24H/IV Dextrose Acyclovir Sodium 265 ml @ 265 mls/hr 05/30/16 0600 750 mg/Dextrose Q8H/IV 05/30/16 0641 Ceftriaxone 70 ml @ 100 mls/hr 05/30/16 0337 Sodium 2000 mg/ NOW STAT/IV 05/30/16 0353 Dextrose Daptomycin 730 mg/ 64.6 ml @ 100 mls/hr 05/30/16 0247 Sodium Chloride ONE STAT/IV 05/30/16 0327 Piperacillin Sod/ 4.5 gm 05/30/16 0229 Tazobactam Sod NOW STAT/IV 05/30/16 0245 (Zosyn Iv) Vancomycin HCl 556 ml @ 200 mls/hr 05/30/16 0800 2800 mg/Sodium TODAY@0800/IV 05/30/16 0906 Chloride Assessment & Plan ASSESSMENT: * Loading dose of vancomycin was given this AM * SCr slightly above baseline and appears to be improving so will determine dose based upon SCr ~ 1.1 * Patient does have an elevated BMI so will need to be cautious as vancomycin could accumulate PLAN: * Will initiate a maintenance dose of vancomycin 1700 mg (14 mg/kg) IV q12h starting at 2200 tonight * Trough level NOT ordered at this time since the vancomycin dose may need adjusted tomorrow if SCr changes and antibiotics only ordered for 48 hrs at this point * Will plan to f/u tomorrow and adjust dose and/or order level if appropriate * Also recommend increasing Rocephin to 2 gm IV q12h for meningitis dosing - will contact provider later today if ID does not do this Pharmacy will continue to follow and will adjust dose/frequency as necessary. Thank you
--- NOTE | 2016-05-30 12:27 | ECHOCARDIOGRAM REPORT ---
*NOTICE TO RECEIVING DEMOCRAT AGENCY This information is strictly Confidential and protected under [place] law. [place] law prohibits you from making any further disclosure of this information unless further disclosure is expressly permitted by the written consent of the person to whom it pertains or is authorized by law. A general authorization for the release of medical or other information is not sufficient for this purpose. Hospital accepts no responsibility if the information is made available to any other person, INCLUDING THE PATIENT. Interpretation Summary * Name: MEREDITH NAPOLES Study Date: 05/30/2016 07:36 AM BP: 151/98 mmHg * Patient Location: C.2T\S\S234\S\1 HR: 100 * : 1960 (M/d/yyyy) Gender: Male Height: 68 in * Age: 56 yrs Ethnicity: CA Weight: 268 lb * Ordering Physician: Nadine Black * Referring Physician: Self, Referred * Performed By: Luz Marina Prabhakar RCS * * Reason For Study: Chest Pain * BSA: 2.3 m2 * -- Conclusions -- * 1. Normal left ventricular size with mild to moderately reduced systolic function. Estimated EF 40-45%. Hypokinesis of the mid septum. Distal wall segments and apex appear severely hypokinetic to akinetic. No visualized apical thrombus. Mild concentric left ventricular hypertrophy. * 2. No significant valvular abnormalities visualized. * 3. No valvular vegetations visualized. * 4. Normal estimated right ventricular systolic pressure; 30 mmHg. * 5. Technically difficult study, enhanced with IV Definity. Procedure Details * A complete two-dimensional transthoracic echocardiogram was performed (2D, M-mode, Doppler and color flow Doppler). Left Ventricle * Normal left ventricular size with mild to moderately reduced systolic function. Estimated EF 40-45%. Hypokinesis of the mid septum. Distal wall segments and apex appear severely hypokinetic to akinetic. No visualized apical thrombus. Mild concentric left ventricular hypertrophy. Right Ventricle * The right ventricle is normal in size and function. * The right ventricular systolic function is normal as assessed by tricuspid annular plane systolic excursion (TAPSE) (normal >1.5 cm). Atria * The left atrial size is normal. * Right atrial size is normal. * There is no evidence of atrial septal defect, but resolution does not allow assessment for a patent foramen ovale. Mitral Valve * There is mild mitral annular calcification. * The mitral valve is grossly normal. * There is no mitral valve stenosis. * There is no mitral regurgitation noted. Tricuspid Valve * The tricuspid valve is not well visualized. * There is no tricuspid stenosis. * Significant tricuspid regurgitation is absent. Aortic Valve * The aortic valve is normal in structure and function. * The aortic valve is trileaflet. * No hemodynamically significant valvular aortic stenosis. * No aortic regurgitation is present. Pulmonic Valve * The pulmonary valve is inadequately visualized, but the Doppler data is adequate for interpretation. * There is no pulmonic valvular stenosis. * There is no significant pulmonary regurgitation. Great Vessels * The aortic root is normal size. * Ascending aorta of normal dimension * Aortic arch of normal dimension. Pericardium/Pleural * There is no pericardial effusion. Great Vessels * Normal inferior vena cava size and collapsability with sniff indicates a normal right atrial pressure of 3 mmHg MMode 2D Measurements and Calculations IVSd 1.3 cm IVSs 1.5 cm LVIDd 4.7 cm LVIDs 3.3 cm LVPWd 1.2 cm LVPWs 1.6 cm IVS/LVPW 1.1 FS 28.7 % EDV(Teich) 102.1 ml ESV(Teich) 45.6 ml EF(Teich) 55.3 % EDV(cubed) 103.5 ml ESV(cubed) 37.4 ml EF(cubed) 63.8 % % IVS thick 17.5 % % LVPW thick 34.5 % LV mass(C)d 226.4 grams LV mass(C)dI 97.8 grams/m\S\2 LV mass(C)s 198.6 grams LV mass(C)sI 85.8 grams/m\S\2 SV(Teich) 56.5 ml SI(Teich) 24.4 ml/m\S\2 SV(cubed) 66.0 ml SI(cubed) 28.5 ml/m\S\2 Ao root diam 3.7 cm Ao root area 10.7 cm\S\2 ACS 2.2 cm LA dimension 5.2 cm asc Aorta Diam 3.0 cm LA/Ao 1.4 LVAd ap4 30.6 cm\S\2 LVLd ap4 8.1 cm EDV(MOD-sp4) 96.7 ml EDV(sp4-el) 98.1 ml LVAs ap4 22.2 cm\S\2 LVLs ap4 7.8 cm ESV(MOD-sp4) 52.3 ml ESV(sp4-el) 53.8 ml EF(MOD-sp4) 45.9 % EF(sp4-el) 45.2 % LVLd ap2 8.4 cm LVLs ap2 7.2 cm SV(MOD-sp4) 44.4 ml SI(MOD-sp4) 19.2 ml/m\S\2 SV(sp4-el) 44.3 ml SI(sp4-el) 19.1 ml/m\S\2 Doppler Measurements and Calculations MV E max beatriz 137.1 cm/sec MV P1/2t max beatriz 134.5 cm/sec MV P1/2t 85.7 msec MVA(P1/2t) 2.6 cm\S\2 MV dec slope 459.7 cm/sec\S\2 MV dec time 0.17 sec Ao V2 max 121.5 cm/sec Ao max PG 5.9 mmHg Ao max PG (full) 3.1 mmHg LV V1 max PG 2.8 mmHg LV V1 max 83.9 cm/sec TV E max beatriz 61.7 cm/sec PA V2 max 101.3 cm/sec PA max PG 4.1 mmHg TR max beatriz 257.1 cm/sec RVSP(TR) 29.7 mmHg RAP systole 3.0 mmHg
--- NOTE | 2016-05-30 12:40 | Medical Consult ---
Consultation Date of Consultation: May 30, 2016. Attending Physician: Francisco Novoa M.D. Reason for Consultation: Altered mental status History of Present Illness 56-year-old male with history of atrial fibrillation, as well as diabetes mellitus, reportedly with uneventful visit earlier this month with his primary care physician, now admitted to the hospital with abrupt change in mental status. Apparently he had been in stable health, but family member was unable to contact him and eventually he was found with significantly altered mental status. Thus far all cultures have been negative. No EQUAL OPPORTUNITY REPRESENTATIVE imaging reported yet. Currently being treated for possibility of meningitis and encephalitis with combination of vancomycin, ceftriaxone, and acyclovir. No reported significant travel or exposure history. Today somewhat agitated and picking at his IV catheter, states no new specific complaints. Sed rate and procalcitonin unremarkable, has elevated troponins and CPK levels Past Medical/Surgical History Medical Problems: (1) Sepsis Status: Acute Medical Problems: (1) Altered mental status (2) Diabetes Family History noncontributory Social History Smoking Status: Unknown if Ever Smoked Marital Status: single Occupation Status: unemployed Allergies Coded Allergies: BEE STING (Verified Allergy, Unknown, `, 05/30/16) Sulfa Antibiotics (Verified Allergy, Unknown, `, 05/30/16) Current Inpatient Medications Current Inpatient Medications Medications (Trade) Dose Ordered Sig/Baljinder Route Start Time Stop Time Status Last Admin Dose Admin Acyclovir Sodium 750 mg/Dextrose 265 ml @ 265 mls/hr Q8H IV 05/30/16 06:00 06/01/16 05:59 05/30/16 06:41 265 MLS/HR Ceftriaxone Sodium 2000 mg/ Dextrose 70 ml @ 100 mls/hr Q24H IV 05/31/16 04:00 05/31/16 04:41 Dexamethasone Sodium Phosphate 4 mg/Syringe 1 ml @ 1 mls/min Q6H IV 05/30/16 10:00 06/29/16 09:59 05/30/16 10:46 1 MLS/MIN Potassium Chloride/Sodium Chloride (Nss + 20meq KCl 1000ml) 1,000 ml @ 125 mls/hr Q8H IV 05/30/16 06:00 05/31/16 05:59 05/30/16 06:41 125 MLS/HR Ondansetron HCl (Zofran Inj) 4 mg Q6H PRN IV 05/30/16 03:45 06/29/16 03:44 Glucose (Glucose 40% Gel) 15-30 GRAMS 15 GRAMS... UD PRN PO 05/30/16 03:45 06/29/16 03:44 Dextrose (Dextrose 50% 50ML Syringe) 25-50ML OF 50% DW IV FOR... UD PRN IV 05/30/16 03:45 06/29/16 03:44 Glucagon (Glucagon Inj) 1 mg UD PRN SQ 05/30/16 03:45 06/29/16 03:44 Miscellaneous Information (Consult Glycemic Management Pharmacy) 1 ea DAILY PRN N/A 05/30/16 03:55 06/29/16 03:54 Lorazepam (Ativan Inj) 1 mg ONE PRN IV 05/30/16 03:45 06/29/16 03:44 Vancomycin HCl (Consult) 1 ea UD PRN N/A 05/30/16 06:15 06/29/16 06:14 Insulin Aspart (novoLOG ASPART) SLIDING SCALE ACHS SC 05/30/16 07:00 06/29/16 06:59 Glucose 4-8 Tablets 4 Tabl... UD PRN PO 05/30/16 06:30 06/29/16 06:29 Vancomycin HCl/ Sodium Chloride (Vancomycin Inj/ Nss 500ml) 534 ml @ 200 mls/hr Q12@1000,2200 IV 05/30/16 22:00 06/01/16 08:59 Review of Systems not obtainable because of patient's mental status Physical Exam Date Time Temp Pulse Resp B/P Pulse Ox O2 Delivery O2 Flow Rate FiO2 05/30/16 10:58 36.8 92 18 132/81 96 Nasal Cannula 3.0 05/30/16 08:00 96 Nasal Cannula 3.0 05/30/16 07:01 37.2 100 20 151/93 96 Nasal Cannula 3.0 05/30/16 05:48 37.0 112 22 160/109 96 Nasal Cannula 3.0 05/30/16 05:02 37.4 100 22 142/96 92 Nasal Cannula 3.0 05/30/16 03:31 101 24 138/86 94 Nasal Cannula 3.0 05/30/16 03:02 95 18 161/96 90 Nasal Cannula 3.0 05/30/16 01:54 39.3 109 23 179/108 95 Room Air General Appearance: WD/WN, + pertinent finding ( agitated) Head: normocephalic, atraumatic Eyes: normal inspection, EOMI, sclerae normal ENT: normal ENT inspection, pharynx normal Neck: supple, no adenopathy, thyroid normal, trachea midline Respiratory/Chest: chest non-tender, lungs clear, normal breath sounds, no respiratory distress Cardiovascular: no gallop, no murmur, + irregularly irregular Abdomen/GI: normal bowel sounds, non tender, soft, no organomegaly Back: normal inspection, no CVA tenderness Extremities/Musculoskelatal: normal capillary refill, + calf tenderness Neurologic/Psych: alert, + disoriented Skin: normal color, warm/dry, no rash Lymphatic: no adenopathy Laboratory Results Date/Time Source Procedure Growth Status 05/30/16 02:10 Blood Blood Culture Pending Received 05/30/16 02:05 Blood Blood Culture Pending Received 05/30/16 03:38 Cerebral Spinal Fluid Acid Fast Stain Pending Joie Batch 05/30/16 03:38 Cerebral Spinal Fluid Mycobacterial Culture Pending Joie Batch 05/30/16 03:38 Cerebral Spinal Fluid Cryptococcal Antigen Pending Joie Batch 05/30/16 03:38 Cerebral Spinal Fluid Fungal Culture Pending Joie Batch 05/30/16 03:38 Cerebral Spinal Fluid Gram Stain Pending Joie Batch 05/30/16 03:38 Cerebral Spinal Fluid CSF Culture Pending [facility] Batch 05/30/16 05:05 Urine,Catheterized Urine Culture Pending Received Last 24 Hours Test 05/30/16 01:20 05/30/16 02:00 05/30/16 02:05 05/30/16 02:17 White Blood Count 21.01 K/uL Red Blood Count 5.70 M/uL Hemoglobin 17.0 g/dL Hematocrit 47.7 % Mean Corpuscular Volume 83.7 fL Mean Corpuscular Hemoglobin 29.8 pg Mean Corpuscular Hemoglobin Concent 35.6 g/dl Platelet Count 241 K/uL Mean Platelet Volume 10.1 fL Neutrophils (%) (Auto) 94.2 % Lymphocytes (%) (Auto) 3.9 % Monocytes (%) (Auto) 1.6 % Eosinophils (%) (Auto) 0.0 % Basophils (%) (Auto) 0.0 % Neutrophils # (Auto) 19.78 K/uL Lymphocytes # (Auto) 0.81 K/uL Monocytes # (Auto) 0.34 K/uL Eosinophils # (Auto) 0.00 K/uL Basophils # (Auto) 0.01 K/uL RDW Standard Deviation 41.0 fL RDW Coefficient of Variation 13.5 % Immature Granulocyte % (Auto) 0.3 % Immature Granulocyte # (Auto) 0.07 K/uL Toxic Granulation 1+ Erythrocyte Sedimentation Rate 21 mm/hr Prothrombin Time 12.6 SECONDS Prothromb Time International Ratio 1.2 Activated Partial Thromboplast Time 30.0 SECONDS Partial Thromboplastin Ratio 1.2 Sodium Level 141 mmol/L Potassium Level 3.9 mmol/L Chloride Level 106 mmol/L Carbon Dioxide Level 18 mmol/L Anion Gap 17.0 mmol/L Blood Urea Nitrogen 18 mg/dl Creatinine 1.50 mg/dl Est Creatinine Clear Calc Drug Dose 71.4 ml/min Estimated GFR () 60.3 Estimated GFR (Non- 52.0 BUN/Creatinine Ratio 12.2 Random Glucose 208 mg/dl Uric Acid 7.4 mg/dl Calcium Level 9.2 mg/dl Total Bilirubin 0.6 mg/dl Direct Bilirubin 0.1 mg/dl Aspartate Amino Transf (AST/SGOT) 18 U/L Alanine Aminotransferase (ALT/SGPT) 21 U/L Alkaline Phosphatase 70 U/L Total Creatine Kinase 577 U/L Creatine Kinase MB 3.7 ng/ml Creatine Kinase MB Ratio 0.6 Troponin I 0.367 ng/ml Total Protein 8.4 gm/dl Albumin 4.3 gm/dl Lipase 103 U/L Prostate Specific Antigen 0.969 ng/ml Procalcitonin 0.24 ng/mL Thyroid Stimulating Hormone (TSH) 2.580 uIu/ml Salicylates Level < 1.7 mg/dl Acetaminophen Level < 2 ug/ml Rapid Plasma Reagin NONREACTIVE Lyme Disease IgG Antibody NEG Lyme Disease IgM Antibody NEG Ethyl Alcohol mg/dL < 3.0 mg/dl Bedside Lactic Acid Venous 3.51 mmol/L Test 05/30/16 02:19 05/30/16 02:25 05/30/16 03:38 05/30/16 03:45 Bedside Troponin I 0.280 ng/ml Urine Opiates Screen NEG Urine Methadone, Qualitative NEG Urine Barbiturates NEG Urine Phencyclidine (PCP) Level NEG Ur Amphetamine/Methamphetamine NEG MDMA (Ecstasy) Screen NEG Urine Benzodiazepines Screen NEG Urine Cocaine Metabolite NEG Urine Marijuana (THC) POS Test 05/30/16 05:05 05/30/16 06:43 05/30/16 06:56 05/30/16 08:53 Urine Color YELLOW Urine Appearance TURBID Urine pH 5.0 Urine Specific [place] 1.023 Urine Protein 2+ Urine Glucose (UA) TRACE Urine Ketones 2+ Urine Occult Blood 3+ Urine Nitrite NEG Urine Bilirubin NEG Urine Urobilinogen NEG Urine Leukocyte Esterase NEG Urine WBC (Auto) 1-5 /hpf Urine RBC (Auto) 0-4 /hpf Urine Hyaline Casts (Auto) 1-5 /lpf Urine Epithelial Cells (Auto) 5-10 /lpf Urine Bacteria (Auto) NEG Bedside Glucose 154 mg/dl White Blood Count 16.17 K/uL Red Blood Count 5.36 M/uL Hemoglobin 16.2 g/dL Hematocrit 45.8 % Mean Corpuscular Volume 85.4 fL Mean Corpuscular Hemoglobin 30.2 pg Mean Corpuscular Hemoglobin Concent 35.4 g/dl Platelet Count 196 K/uL Mean Platelet Volume 10.2 fL Neutrophils (%) (Auto) 93.0 % Lymphocytes (%) (Auto) 5.9 % Monocytes (%) (Auto) 0.8 % Eosinophils (%) (Auto) 0.0 % Basophils (%) (Auto) 0.1 % Neutrophils # (Auto) 15.03 K/uL Lymphocytes # (Auto) 0.96 K/uL Monocytes # (Auto) 0.13 K/uL Eosinophils # (Auto) 0.00 K/uL Basophils # (Auto) 0.01 K/uL RDW Standard Deviation 42.5 fL RDW Coefficient of Variation 13.8 % Immature Granulocyte % (Auto) 0.2 % Immature Granulocyte # (Auto) 0.04 K/uL Sodium Level 140 mmol/L Potassium Level 3.8 mmol/L Chloride Level 107 mmol/L Carbon Dioxide Level 21 mmol/L Anion Gap 12.0 mmol/L Blood Urea Nitrogen 17 mg/dl Creatinine 1.30 mg/dl Est Creatinine Clear Calc Drug Dose 81.8 ml/min Estimated GFR () 71.7 Estimated GFR (Non- 61.9 BUN/Creatinine Ratio 12.9 Random Glucose 171 mg/dl Lactic Acid Level 1.2 mmol/L Calcium Level 8.9 mg/dl Total Bilirubin 0.8 mg/dl Aspartate Amino Transf (AST/SGOT) 24 U/L Alanine Aminotransferase (ALT/SGPT) 19 U/L Alkaline Phosphatase 61 U/L Total Protein 8.0 gm/dl Albumin 3.9 gm/dl Globulin 4.1 gm/dl Albumin/Globulin Ratio 1.0 Total Creatine Kinase 987 U/L Creatine Kinase MB 4.0 ng/ml Creatine Kinase MB Ratio 0.4 Troponin I 1.450 ng/ml Test 05/30/16 10:55 Bedside Glucose 204 mg/dl CC: Kamran Monge M.D. No Doctor, Assigned Francisco Novoa M.D. Endcc: [~ rep ct add3]] HEAD CT NONCONTRAST CT DOSE: 614.27 mGy.cm HISTORY: Mental status change altered loc TECHNIQUE: Multiaxial CT images of the head were performed without the use of intravenous contrast. Comparison: None. Findings: The paranasal sinuses and mastoid air cells are clear. Findings of old left and to lesser extent right occipital lobe infarct. No acute intracranial hemorrhage. No deviation of midline structures. Small old periventricular infarct of the right. No evidence for acute intracranial hemorrhage. 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 No acute process. Electronically signed by: Julian Girard M.D. 05/30/2016 7:18 AM Dictated Date/Time: 05/30/2016 7:15 AM Assessment & Plan acute encephalopathy of unclear etiology in a patient now with atrial fibrillation, elevated troponin and CPK levels. Agree with need for lumbar puncture as well as MRI if possible, and also agree that empiric antibiotics are warranted pending above results. Would cover for most likely bacterial pathogens as well as for possible herpetic infection. I will adjust once further culture results are available. We will follow.
--- NOTE | 2016-05-30 14:03 | Pharmacy Progress Note ---
Glycemic Control Intl Consult Date of Service May 30, 2016. Scope Glycemic Pharmacist consulted by Dr Black on 05/30/16 for glycemic control and to write orders per [facility] inpatient glycemic control protocol Objective Weight (Kilograms): 120.100 (BMI = 40) Accuchecks BSG (last 24hrs): Test 05/30/16 01:20 05/30/16 06:43 05/30/16 06:56 05/30/16 10:55 Random Glucose 208 mg/dl (70-99) 171 mg/dl (70-99) Bedside Glucose 154 mg/dl (70-99) 204 mg/dl (70-99) Laboratory Data (last 24hrs) Test 05/30/16 01:20 05/30/16 06:56 Anion Gap 17.0 mmol/L 12.0 mmol/L BUN/Creatinine Ratio 12.2 12.9 Blood Urea Nitrogen 18 mg/dl 17 mg/dl Creatinine 1.50 mg/dl 1.30 mg/dl Potassium Level 3.9 mmol/L 3.8 mmol/L Sodium Level 141 mmol/L 140 mmol/L White Blood Count 21.01 K/uL 16.17 K/uL Red Blood Count 5.70 M/uL 5.36 M/uL Hemoglobin 17.0 g/dL 16.2 g/dL Hematocrit 47.7 % 45.8 % Mean Corpuscular Volume 83.7 fL 85.4 fL Mean Corpuscular Hemoglobin 29.8 pg 30.2 pg Mean Corpuscular Hemoglobin Concent 35.6 g/dl 35.4 g/dl Platelet Count 241 K/uL 196 K/uL Mean Platelet Volume 10.1 fL 10.2 fL Neutrophils (%) (Auto) 94.2 % 93.0 % Lymphocytes (%) (Auto) 3.9 % 5.9 % Monocytes (%) (Auto) 1.6 % 0.8 % Eosinophils (%) (Auto) 0.0 % 0.0 % Basophils (%) (Auto) 0.0 % 0.1 % Neutrophils # (Auto) 19.78 K/uL 15.03 K/uL Lymphocytes # (Auto) 0.81 K/uL 0.96 K/uL Monocytes # (Auto) 0.34 K/uL 0.13 K/uL Eosinophils # (Auto) 0.00 K/uL 0.00 K/uL Basophils # (Auto) 0.01 K/uL 0.01 K/uL Recent Pertinent Medications Outpatient Anti-diabetic Regimen: * Metformin ER 1500 mg daily * A1c = pending 05/31/16 The patient is currently receiving: * Basal insulin: none at this time * Correctional Insulin: Novolog Correction per scale ACHS Goal Range: Low 140 mg/dL - High 180 mg/dL Correction Factor: 20 mg/dL/unit * Prandial insulin: Per carb ratio of 1 unit per 6 grams CHO consumed * Oral Agents: none Risk Factors for Insulin Resistance: * Steroids: dexamethasone 10 mg x1, then 4 mg q6h * Infection: possible meningitis, other- on vancomycin, Rocephin, acyclovir * IVF: NS + KCl @ 125 ml/hr, Rocephin and acyclovir mixed in D5W * Diet: npo except ice chips Assessment & Plan ASSESSMENT: * ADA & AACE recommend a goal blood sugar range 140-180 mg/dl for the majority of critically ill & non-critically ill patients. However, more stringent targets may be selected in individual cases. * 56yo type 2 diabetic with fever and mental status changes. A1c pending to assess recent glycemic control. Will expect BSG's to increase while on steroid, and effect of dexamethasone may persist 48-72 hours after last dose. Weight- based correction factor and carb ratio started.Will decrease goal range since non-ICU patient, get an additional BSG overnight, and reassess need for basal insulin in am. PLAN FOR INPATIENT GLYCEMIC CONTROL: * Holding outpatient oral diabetes medications * No basal insulin at this time * Correctional Insulin with NOVOLOG per scale ACHS or Q6hrs while NPO * Goal Range: Low 110 mg/dL - High 150 mg/dL * Correction Factor: 20 mg/dL/unit * Nutritional / Prandial insulin per carb ratio of 1 unit per 6 grams CHO consumed * Please note that the plan above was derived based on current level of insulin resistance and hospital stress. These recommendations are appropriate for inpatient admission only. Plan of care upon discharge will need to be reassessed to avoid potential outpatient hypo/hyperglycemia. Thank you.
--- NOTE | 2016-05-30 14:07 | CARDIOLOGY CONSULTATION ---
DATE OF CONSULTATION: 05/30/2016 CONSULTING PHYSICIAN: Dr. Francisco Novoa. REASON FOR CONSULTATION: Altered mental status and concern for endocarditis. HISTORY OF PRESENT ILLNESS: Mr. Viveros is a pleasant 56-year-old gentleman who follows with cardiology as an outpatient for permanent atrial fibrillation, history of nonischemic cardiomyopathy with normalized LV systolic function, dyslipidemia, and diastolic CHF. He also has a history significant for type 2 diabetes and morbid obesity. He was last seen in the office on 05/23/2016 by Gardenia Ramirez, physician assistant professor of business. He had been doing well at that time and lost approximately 75 pounds over an 8-month period due to dieting by cutting out sweets. He also had been walking a bit more according to records. She was admitted to [facility] on 05/30/2016 with altered mental status. According to records, his mother had called to check on him and because she was unable to get a hold of him for a few days, she called the ambulance. The patient himself states that his mother has ; however, he is quite confused at this time. According to nursing staff, he apparently brought with him a bag of medications and apparently some of the medications were mixed together and some of them were cut or crushed. The patient himself is unable to provide any meaningful history at this time as he is confused. He currently denies any pain such as chest pain, abdominal pain or any other pain. He denies shortness of breath, syncope, near syncope, or palpitations. When asked about his weight loss, which he mentioned in the office exactly 1 week ago, his history is similar to what he provided at that time, that being that he is adopted a healthier diet. He has no particular questions or concerns at this time and other than feeling cold and have a mild headache, he denies any further symptoms. REVIEW OF SYSTEMS: As above and otherwise unobtainable due to the patient's mental status. PAST MEDICAL HISTORY: 1. Nonischemic cardiomyopathy with improved LV systolic function with his last outpatient echo being on 07/16/2013 with an EF of 60%. 2. Myocardial biopsy on 02/15/2011 for workup for amyloid heart. This was complicated with hemopericardium with tamponade and requiring a pericardial drain placement. 3. Atrial fibrillation and atrial flutter, undergoing successful cardioversion on 11/01/2010 and 12/11/2010. The second was while he was on amiodarone therapy. He continues to be in permanent atrial fibrillation currently, however. 4. Hypertension. 5. Dyslipidemia. 6. Gastroparesis. 7. Obesity. 8. Chronic diastolic CHF. 9. Depression. 10. Diffuse idiopathic skeletal hyperostosis. 11. Hypothyroidism. 12. History of noncompliance. 13. Polyneuropathy. 14. Right bundle-branch block and left anterior fascicular block. 15. Type 2 diabetes. 16. Sleep apnea. HOME MEDICATIONS: Include Xarelto 20 mg daily, metoprolol tartrate 50 mg twice daily, amitriptyline 50 mg at bedtime, fluoxetine 40 mg twice daily, lisinopril 5 mg daily, pravastatin 40 mg daily, gabapentin, metformin 1500 mg daily, allopurinol 300 mg daily, omeprazole 40 mg daily, and Synthroid 75 mcg daily. ALLERGIES: SULFA DRUGS. SOCIAL HISTORY: He does not smoke. He is not . FAMILY HISTORY: Obtained from outpatient records: Father had MA in his 40s. He has several family members with cardiac issues. INPATIENT MEDICATIONS: Include, 1. Ceftriaxone 2000 mg IV q. 24 hours. 2. Acyclovir 750 mg IV q. 8 hours. 3. Dexamethasone 4 mg IV q. 6 hours. 4. He received 1 dose of Zosyn. 5. Vancomycin 1700 mg IV q. 12 hours. PHYSICAL EXAMINATION: VITAL SIGNS: Temperature 36.8 degrees. T-max is 39.3 degrees. Heart rate 92 beats per minute, respiratory rate 18, blood pressure 132/81 mmHg, and oxygen saturation 96% on 3 liters per nasal cannula. Weight 120.1 kg. GENERAL: No acute distress. He is alert. He is oriented to the month and location, but otherwise did not know the year and several times, will repeat the same questions over and over again. He is not at his baseline mental status. HEENT: Anicteric sclerae. NECK: Thick, but no appreciable JVD. No bruits. Normal carotid upstrokes bilaterally. CARDIAC EXAM: PMI is nonpalpable. There was no ventricular heave, irregularly irregular, normal S1 and S2. No murmurs, rubs, or gallops were auscultated. LUNGS: Clear to auscultation bilaterally without wheezes, rales or rhonchi. ABDOMEN: Obese, soft, nontender, and nondistended. Normoactive bowel sounds. EXTREMITIES: No cyanosis or pitting edema. 2+ radial pulses bilaterally. 2+ dorsalis pedis pulses bilaterally. No cyanosis. No palpable cords. No splinter hemorrhages, Janeway lesions, or Osler nodes in hands or feet. PSYCHIATRIC: Affect appears appropriate. LABORATORY DATA: White blood cell count was initially 21.01 and now 16.17, hemoglobin 16.2, and platelets 196. ESR 21. Sodium 140, potassium 3.8, BUN 17, and creatinine 1.3. AST 24 and ALT 19. Troponin initially 0.367, currently 1.45. Albumin 3.9. TSH 2.58. Procalcitonin 0.24. INR 1.2. Tox screen positive for marijuana. Lyme, IgG and IgM antibodies negative. RPR nonreactive. Head CT from 05/30/2016 reported by radiology as several old intracranial infarcts, no acute process. Chest x-ray image personally reviewed. No obvious infiltrate. Radiology has interpreted this as a cardiomegaly with mild central pulmonary venous congestion. Echocardiogram images were personally reviewed. LV systolic function appears to be mildly to moderately reduced; however, technically difficult study. The distal wall segments of the left ventricle and apex were severely hypokinetic to akinetic. There was hypokinesis of the mid septum. No visualized apical thrombus. No significant valvular abnormalities. No valvular vegetations were visualized. Blood cultures are pending. Urine culture pending. Cerebrospinal fluid studies are pending; however, they have been ordered by the hospitalist service. ECG upon presentation, 05/30/2016 at 02:12 a.m. demonstrated atrial fibrillation at 100 beats per minute. Right bundle-branch block and left anterior fascicular block. ASSESSMENT AND PLAN: 1. Non-ST elevation myocardial infarction: He did not present with acute coronary syndrome and he appears to have some sort of infectious or inflammatory process given his elevated ESR and fever. He has no known coronary artery disease and has undergone cardiac catheterization in 2010 with no CAD at that time. Echocardiogram is consistent with cardiomyopathy, suggestive of a cardiomyopathy from acute illness. If no contraindications, can start aspirin 81 mg daily. No indication for urgent cardiac catheterization at this time. 2. Altered mental status: Etiology uncertain. He did have a high fever upon presentation and has an elevated ESR. Suspect infectious or inflammatory process. Primary service is treating for bacterial infection and also meningitis. Further studies are pending. Infectious disease consult is also pending. We will defer treatment to primary service and infectious disease. 3. Prior stroke: CT scan findings report old infarct/stroke. This is not likely secondary to embolic phenomenon from endocarditis given the fact that he was seen in the office 1 week ago and was asymptomatic in this regard. Any recent septic emboli should demonstrate a subacute or acute appearance on CT scan. Certainly, further evaluation is pending with an MRI. There are no other stigmata of endocarditis at this time on physical exam. Certainly, if he is found to have an infection suspicious for endocarditis, a transesophageal echo could be planned at that time; however, there is no strong indication at this time for transesophageal echo. 4. Cardiomyopathy: No documented coronary artery disease in 2010. He had nonischemic cardiomyopathy at that time. Since then, his LV systolic function has improved. Currently, he has normal wall motion at the base of his left ventricle and mostly distal segments and apex are severely hypokinetic to akinetic. This could be due to acute illness. He was unable to afford metoprolol succinate as an outpatient and has chosen to remain on metoprolol tartrate. Would resume some sort of beta yajaira therapy currently as his heart rate will likely become more elevated being the fact that he has permanent atrial fibrillation. Can hold off on resuming his TAMAR inhibitor for now; however, if he becomes hypertensive, would resume his home dose of lisinopril as well, which is 5 mg daily. This can be further titrated if necessary, if LV systolic function has not improved. 5. Atrial fibrillation: He has undergone cardioversion in the past and also was treated with amiodarone therapy in the past. He was found to have abnormal PFTs while on amiodarone and also developed thyroid issues and therefore, amiodarone was discontinued and he has been treated with the rate control strategy. He has been well rate controlled. Would resume metoprolol at his home dose, so as to avoid significant tachycardia. For stroke risk reduction, would recommend resuming anticoagulation when it is clear that it is safe to do so from a mental status standpoint. MRI is pending. Certainly, if he is found to have septic emboli, which does not appear to be likely at this moment based on old infarcts on CT scan, anticoagulation will be contraindicated. We will await MRI to help make this determination. 6. History of chronic diastolic congestive heart failure: He does not appear hypervolemic at this time. He does not take Lasix regularly and uses it only as needed. No diuretics recommended at this time. 7. Disposition: Highly complex medical issues. Plan of care was discussed with Dr. Arreola and Dr. Lim of the primary hospitalist service. Please note, if an LP is planned, the patient does take Xarelto and there is no wave of knowing when his last dose of Xarelto was given his current mental status and therefore, he may be fully anticoagulated, which should delay any lumbar puncture and therefore further complicate diagnostic measures. Highly complex medical issues. Thank you for allowing me to participate in care of Mr. Viveros. Cardiology will continue to follow along. Sincerely, AARON
[2016-05-30 16:39] LABS: CKMB/CK RATIO 0.4 (0-3.0)
[2016-05-30] MEDS: CEFTRIAXONE SOD INJ 2,000 MG in DEXTROSE 5% 50ML 50 ML IV SCH (16:41)
[2016-05-30] MEDS: PRAVASTATIN SOD 20 MG TAB PO SCH (17:44)
[2016-05-30] MEDS: METOPROLOL TARTRATE 50 MG TAB PO SCH (19:33)
[2016-05-30] MEDS: VANCOMYCIN INJ 1,700 MG in SODIUM CHLORIDE 0.9% 500ML 500 ML IV SCH (22:08)
[2016-05-30 22:10] LABS: CKMB/CK RATIO 0.5 (0-3.0)
[2016-05-31] MEDS ORDERED: INSULIN ASPART 100 UNITS/ML 3 ML PEN SC SCH (02:00)
[2016-05-31 03:29] LABS: COMPLETE YES; HEMATOCRIT 45.9 % (42-52); IG% 0.3 %; LYMPH % 5.9 %; LYMPH ABS # 1.06 K/uL (1.2-3.4); MEAN CELL VOLUME 86.4 fL (80-100); MEAN CORPUSCULAR HEMOGLOBIN 30.1 pg (25-34); MEAN CORPUSCULAR HGB CONC 34.9 g/dl (32-36); MEAN PLATELET VOLUME 10.1 fL (7.4-10.4); MONO % 4.2 %; NEUT % 89.6 %; PLATELET COUNT 196 K/uL (130-400); RED BLOOD COUNT 5.31 M/uL (4.7-6.1); WHITE BLOOD COUNT 18.02 K/uL (4.8-10.8)
[2016-05-31] MEDS: CEFTRIAXONE SOD INJ 2,000 MG in DEXTROSE 5% 50ML 50 ML IV SCH ×2 (03:43→16:24)
[2016-05-31] MEDS: DEXAMETHASONE INJ 4 MG in SYRINGE 0 ML IV SCH ×4 (03:43→22:13)
[2016-05-31 03:46] LABS: BUN/CREATININE RATIO 17.6 (10-20); CALCIUM 8.4 mg/dl (8.5-10.1); CREATININE 1.2 mg/dl (0.60-1.40); POTASSIUM 4.3 mmol/L (3.5-5.1)
[2016-05-31 03:49] VITALS: BP 122/74; PULSE 77; TEMP 36.8; O2SAT 93
[2016-05-31 03:58] LABS: CKMB/CK RATIO 0.6 (0-3.0)
[2016-05-31] MEDS ORDERED: CEFTRIAXONE SOD INJ 2,000 MG in DEXTROSE 5% 50ML 50 ML IV SCH (04:00)
[2016-05-31] MEDS: LEVOTHYROXINE 75 MCG TAB PO SCH (05:52)
[2016-05-31] MEDS: ACYCLOVIR SOD INJ 750 MG in DEXTROSE 5% 250ML 250 ML IV SCH ×3 (05:52→22:13)
[2016-05-31 06:18] LABS: ESTIMATED AVERAGE GLUCOSE 126 mg/dl; HA1C FLAG Normal (Normal)
--- NOTE | 2016-05-31 07:29 | Family Medicine Progress Note ---
Progress Note Date of Service May 31, 2016. Subjective Pt evaluation today including: conversation w/ patient, physical exam, chart review, lab review The patient was seen and examined at bedside. Patient was restarted on one to one because he was walking around with his marcano cathetor dragging on the ground. Patient is resting comfortably in bed. Pt report an exacerbation of his chronic back pain. Wants to be discharged but understand the importance of Antiobiotic coverage. Answering questions appropriately. Eating and urinating well. Plan of care was described to the patient (LP and MRI today) and all questions were answered. Spoke with Patient's cousin in [place], Jacqueline Farrukh: [phone]. According to Jacqueline pt sounded like he was starting to get depressed over the phone. Objective Physical Exam General Appearance: WD/WN, no apparent distress, + obese, + pertinent finding ( marcano cathetor in place) Respiratory/Chest: chest non-tender, lungs clear, normal breath sounds, no respiratory distress, no accessory muscle use Cardiovascular: no edema, no gallop, no JVD, no murmur, + irregularly irregular Abdomen: normal bowel sounds, non tender, soft Extremities: no calf tenderness Neurologic/Psychiatric: alert, normal mood/affect, oriented x 3 Assessment and Plan 56M with acute metabolic encephalopathy and sepsis, with unclear etiology. Friend's (Nadeem) mom called EMS after not hearing from Abdoul who takes care of her dog periodically. Pt reports that both of his parents are . Top differential is meningitis / encephalitis, though would also consider: toxin induced, hypo/hyperglycemia, endocarditis, lyme / ehrlichiosis, herpes / syphilis, pneumonia. Acute metabolic encephalopathy, suspicious for meningitis/encephalitis - Pt's mental status is back at his baseline. - CT head shows several old intracranial infarcts. No acute process. MRI head today. - MRI head still pending.. - LP today was grossly normal, glucose elevated, protein mildly elevated, no WBC , no RBC <- may be normal due to Abx coverage. - c/w Ceftriaxone 2g daily, Vancomycin, and Acyclovir. (Day #2) - c/w decadron 10mg now, and then 4mg q6h IV after that - ID on board, defer to them for steroid management. - Echocardiogram showed no evidence of valvular abnormality, cerebral infarcts are not acute or subacute, endocarditis remains on the differential. See cardiology recs below. - Urine tox screen positive for marijuana. - Lyme negative, RPR negative so far, other titres pending. Cardiac - Elevated Troponins, Cardiomyopahty, chronic Afib, chronic CHF (stable) - Telemetry monitoring showed Afib in the 70s. - Troponin peaked at 1.45, CKMB :CK ratio is WNL. - Echo - consistent with cardiomyopathy. - Cardiology - pt was seen in cardiology clinic one week prior for chronic afib and pt had no complaints, unlikely endocarditis in light of CT findings, Echo findings and clinical findings, restarting recent cath in 2010 was normal, no indications for new cath or RENATA echo at this time. - restarted Metoprolol 50mg BID. - Will restart Aspirin and Xarelto after the LP and MRI. Anticoagulation is contraindicated in endocarditis, but clinical suspicion is low. - Will restart Xarelto 20mg daily AM tomorrow. Sepsis, unclear etiology - Pt is improving clinically. - Blood and urine cultures pending. Type 2 DM - HBA1C = 6.0 - Glycemic consult - c/w home med Pravastatin. Mood - restarted Proxac (Fluoxetine) 40mg BID Chronic Back Pain - Oxycodone 5mg Q4 PRN. Hypothyroid - c/w Levothyroxine 75mcg. DVT Proph: Holding anticoags after LP. Will restart tomorrow. Dispo: Tele, DM2 Diet, Full Code Resident Physician Supervision Note: I interviewed and examined the patient. Discussed with Dr. Julian Lim and agree with findings and plan as documented in the note. Any exceptions or clarifications are listed here: None THis pt was admitted with encephalopathy felt to be metabolic concern for meningitis given marked delerium, initial studies with LP are not initially supportive of a bacterial meningitis. continue therapy until cultures are negative, pt is at baseline according to providers that know him prior to hospital stay. vss, afib controlled car is irregular lungs clear continue antibiotics, follow cultures, treat afib with rate control Documented By: Elfego Hurst . Resident Involvement: Resident Care Provided Care Provided: Adult [facility]
[2016-05-31 08:30] VITALS: BP 149/72; PULSE 78; TEMP 36.9; O2SAT 98
[2016-05-31] MEDS: INSULIN ASPART 100 UNITS/ML 3 ML PEN SC SCH ×4 (09:45→21:15)
--- NOTE | 2016-05-31 11:43 | DIAGNOSTIC IMAGING REPORT ---
FLUOROSCOPIC GUIDED LUMBAR PUNCTURE CLINICAL HISTORY: Change in mental status. PROCEDURE: The risks, benefits, and alternatives to the procedure is discussed with the patient who voiced understanding. Written informed consent was obtained. The patient was placed prone on the fluoroscopy table. The lower back was prepped and draped in the usual sterile fashion. 1% lidocaine was used for local anesthesia. A 20-gauge spinal needle was inserted into the left L4-L5 interlaminar space, and approximately 10 cc of cerebrospinal fluid was removed. This was initially blood-tinged and then cleared. The patient tolerated the procedure well. There were no immediate complications. The patient was then returned to the medical floor for further observation. Fluoroscopy time: 0.3 minutes. IMPRESSION: Fluoroscopic guided lumbar puncture with removal of approximately 10 cc of cerebrospinal fluid. There were no immediate complications. Electronically signed by: Javier Rush M.D. 05/31/2016 11:41 AM Dictated Date/Time: 05/31/2016 11:41 AM
[2016-05-31 11:54] LABS: CSF TOTAL PROTEIN 82.9 mg/dl (15.0-45.0)
[2016-05-31] MEDS ORDERED: OXYCODONE HCL IR 5 MG TAB (IMMEDIATE RELEASE) PO PRN (12:00)
[2016-05-31] MEDS ORDERED: OXYCODONE HCL IR 5 MG TAB (IMMEDIATE RELEASE) PO ONE (12:15)
[2016-05-31] MEDS ORDERED: FLUOXETINE HCL 20 MG CAP PO ONE (12:30)
[2016-05-31] MEDS: VANCOMYCIN INJ 1,700 MG in SODIUM CHLORIDE 0.9% 500ML 500 ML IV SCH ×2 (12:38→22:13)
[2016-05-31] MEDS: METOPROLOL TARTRATE 50 MG TAB PO SCH (12:39)
[2016-05-31 12:40] LABS: CSF APPEARANCE CLEAR; CSF COLOR PINK; CSF XANTHOCHROMIC NO XANTHOCHROMIA
[2016-05-31 12:49] VITALS: BP 161/88; PULSE 74; TEMP 36.8; O2SAT 95
--- NOTE | 2016-05-31 13:06 | CARDIOLOGY PROGRESS NOTE ---
DATE: 05/31/2016 TIME: 12:26 p.m. SUBJECTIVE: Mr. Viveros immediately recognized me when I entered the room and called me by name. He states that he does not remember anything over the past few days. He states that leading up to his mental status change, he denied any chest pain, shortness of breath, fevers, chills, abdominal pain, hematuria, bleeding, edema. His only complaint currently is back pain. He states he chronically has back pain and also underwent an LP earlier today and it is still sore in that area. OBJECTIVE: VITAL SIGNS: Temperature 36.9 degrees. He did not have a fever since yesterday. Heart rate 78 beats per minute, respiration rate 18, blood pressure 149/72 mmHg; however, blood pressure has been otherwise well controlled since yesterday. Oxygen saturation 98% on room air. I's and O's positive 1.4 liters yesterday. Weight 128.1 kg. GENERAL: No acute distress. He is alert and oriented. NECK: Thick. CARDIAC EXAM: No ventricular heave, irregularly irregular. No audible murmurs, rubs or gallops. LUNGS: Clear to auscultation bilaterally without wheezes, rales or rhonchi. ABDOMEN: Obese, soft, nontender, nondistended. Normoactive bowel sounds. EXTREMITIES: No significant edema. No cyanosis. BACK: No hematoma or ecchymosis noted at the LP site. MEDICATIONS: Include acyclovir IV, ceftriaxone IV, dexamethasone IV, Synthroid 75 mcg daily, metoprolol tartrate 50 mg p.o. b.i.d., pravastatin 20 mg daily, vancomycin IV. Blood culture is negative to date. CSF evaluation still pending. Samples have been sent. Telemetry personally reviewed. No ventricular arrhythmia. LABORATORY DATA: White blood cell count 18, hemoglobin 16, platelets 196. Sodium 140, potassium 4.3, BUN 21, creatinine 1.2, AST 34, ALT 25. Troponin peak was 1.45 and has since trended downward. ASSESSMENT AND PLAN: 1. Mental status change with fever: He is now afebrile and mental status appears to be back to baseline. He is being treated for multiple possible etiologies. Further evaluation and results of prior studies are pending per primary service. 2. Non-ST elevation myocardial infarction: He did not present with acute coronary syndrome and was not having any symptoms prior to his mental status change. Continue beta yajaira. We will start aspirin 81 mg daily, however, he has no known coronary artery disease on prior cardiac catheterization as previously mentioned. No strong indication for cardiac catheterization at this time. May consider outpatient stress testing when recovered from his acute illness. 3. Prior stroke: Likely secondary to atrial fibrillation. Resume anticoagulation when safe from LP standpoint. This was discussed with primary service. 4. Cardiomyopathy: He has had a history of nonischemic cardiomyopathy. LV systolic function has reduced once more. He does have a large wall motion abnormality on echo as noted. Carvedilol will be started in place of metoprolol tartrate. Resume TAMAR inhibitor 5 mg daily and can titrate as possible. He appears euvolemic. 5. Atrial fibrillation: Amiodarone was discontinued in the past due to abnormal PFTs and thyroid issues. Continue rate control strategy. Resume anticoagulation when safe from an LP standpoint as discussed above. 6. History of chronic diastolic congestive heart failure: He appears euvolemic. He has not required Lasix on a regular basis. 7. Disposition: I will be away from the hospital for the next 2 days. If any questions or concerns, call the on-call automatic pattern edger for [facility]. Otherwise, I will resume his cardiology care on Friday. Plan of care has been discussed with primary service.
--- NOTE | 2016-05-31 15:06 | Pharmacy Progress Note ---
Glycemic Control: Progress Nt Date of Service May 31, 2016. Scope Glycemic Pharmacist consulted by Dr Black on 05/30/16 for glycemic control and to write orders per [facility] inpatient glycemic control protocol. Objective Accuchecks BSG (last 24hrs): Test 05/30/16 16:15 05/30/16 20:10 05/31/16 02:13 05/31/16 03:22 Bedside Glucose 195 mg/dl (70-99) 182 mg/dl (70-99) 231 mg/dl (70-99) Random Glucose 209 mg/dl (70-99) Test 05/31/16 06:05 05/31/16 12:44 Bedside Glucose 180 mg/dl (70-99) 137 mg/dl (70-99) Laboratory Data (last 24hrs) Test 05/31/16 03:22 Anion Gap 7.0 mmol/L BUN/Creatinine Ratio 17.6 Blood Urea Nitrogen 21 mg/dl Creatinine 1.20 mg/dl Hemoglobin A1c 6.0 % Potassium Level 4.3 mmol/L Sodium Level 140 mmol/L White Blood Count 18.02 K/uL Red Blood Count 5.31 M/uL Hemoglobin 16.0 g/dL Hematocrit 45.9 % Mean Corpuscular Volume 86.4 fL Mean Corpuscular Hemoglobin 30.1 pg Mean Corpuscular Hemoglobin Concent 34.9 g/dl Platelet Count 196 K/uL Mean Platelet Volume 10.1 fL Neutrophils (%) (Auto) 89.6 % Lymphocytes (%) (Auto) 5.9 % Monocytes (%) (Auto) 4.2 % Eosinophils (%) (Auto) 0.0 % Basophils (%) (Auto) 0.0 % Neutrophils # (Auto) 16.16 K/uL Lymphocytes # (Auto) 1.06 K/uL Monocytes # (Auto) 0.75 K/uL Eosinophils # (Auto) 0.00 K/uL Basophils # (Auto) 0.00 K/uL HbA1c: Test 05/31/16 03:22 Hemoglobin A1c 6.0 % (4.5-5.6) H Recent Pertinent Medications Outpatient Anti-diabetic Regimen: * Metformin ER 1500 mg daily * A1c = 6.0% 05/31/16 The patient is currently receiving: * Basal insulin: none at this time * Correctional Insulin: Novolog Correction per scale ACHS Goal Range: Low 110 mg/dL - High 150 mg/dL Correction Factor: 20 mg/dL/unit * Prandial insulin: Per carb ratio of 1 unit per 6 grams CHO consumed * Oral Agents: none Risk Factors for Insulin Resistance: * Steroids: dexamethasone 10 mg x1, then 4 mg q6h * Infection: possible meningitis, other- on vancomycin, Rocephin, acyclovir * IVF: Rocephin and acyclovir mixed in D5W * Diet: npo except ice chips,now advanced to type 2 diabetic Assessment & Plan ASSESSMENT: * ADA & AACE recommend a goal blood sugar range 140-180 mg/dl for the majority of critically ill & non-critically ill patients. However, more stringent targets may be selected in individual cases. 05/30/16 * 56yo type 2 diabetic with fever and mental status changes. A1c pending to assess recent glycemic control. Will expect BSG's to increase while on steroid, and effect of dexamethasone may persist 48-72 hours after last dose. Weight- based correction factor and carb ratio started.Will decrease goal range since non-ICU patient, get an additional BSG overnight, and reassess need for basal insulin in am. 05/31/16 * Hgb A1c of 6% indicates good glycemic control over past 3 months on metformin alone. Patient received 12 units of insulin on 05/30. BSG's ranged from 137-231 mg/dl over past 24 hr. BSG's trending down, and reportedly mental status has improved. Still on round-the clock steroid. No changes for now. PLAN FOR INPATIENT GLYCEMIC CONTROL: * Holding outpatient oral diabetes medications * No basal insulin at this time * Correctional Insulin with NOVOLOG per scale ACHS or Q6hrs while NPO * Goal Range: Low 110 mg/dL - High 150 mg/dL * Correction Factor: 20 mg/dL/unit * Nutritional / Prandial insulin per carb ratio of 1 unit per 6 grams CHO consumed * Please note that the plan above was derived based on current level of insulin resistance and hospital stress. These recommendations are appropriate for inpatient admission only. Plan of care upon discharge will need to be reassessed to avoid potential outpatient hypo/hyperglycemia. Thank you.
[2016-05-31 15:57] VITALS: BP 158/94; PULSE 76; TEMP 36.6; O2SAT 96
[2016-05-31] MEDS ORDERED: GADAVIST IV PRN (18:15)
--- NOTE | 2016-05-31 18:18 | DIAGNOSTIC IMAGING REPORT ---
MRI OF THE BRAIN WITHOUT AND WITH IV CONTRAST CLINICAL HISTORY: altered mental status, emboli mental status change COMPARISON STUDY: No previous studies for comparison. TECHNIQUE: Utilizing a 1.5 Ghazal magnet and dedicated coil, multiplanar, multiecho imaging of the brain was performed pre and postcontrast administration. IV administration of 8 mL of Gadavist contrast was uneventful. FINDINGS: No evidence for an acute ischemic process. Limited study technically due to patient motion. No significant postcontrast enhancement. Several foci of increased signal within the periventricular and deep white matter regions. Old left occipital infarct. Internal artery canals are symmetric. IMPRESSION: 1. Old left occipital infarct. 2. Mild chronic small vessel change. 3. No acute ischemic insult. 4. No abnormal postcontrast enhancement Electronically signed by: Julian Girard M.D. 05/31/2016 6:17 PM Dictated Date/Time: 05/31/2016 6:15 PM
[2016-05-31] MEDS: PRAVASTATIN SOD 20 MG TAB PO SCH (18:21)
[2016-05-31 20:00] VITALS: BP 156/95; PULSE 80; TEMP 37; O2SAT 96
[2016-05-31] MEDS: FLUOXETINE HCL 20 MG CAP PO SCH (20:02)
[2016-05-31] MEDS: CARVEDILOL 12.5 MG TAB PO SCH (20:03)
[2016-05-31 23:14] VITALS: BP 158/92; PULSE 83; TEMP 37.2; O2SAT 96
[2016-06-01] VITALS (10 sets, daily range): BP systolic 129–162; BP diastolic 87–100; PULSE 58–79; TEMP 36.4–37.1; O2SAT 94–97
[2016-06-01] MEDS: CEFTRIAXONE SOD INJ 2,000 MG in DEXTROSE 5% 50ML 50 ML IV SCH ×2 (03:56→15:38)
[2016-06-01] MEDS: DEXAMETHASONE INJ 4 MG in SYRINGE 0 ML IV SCH ×4 (03:57→23:31)
[2016-06-01] MEDS: LEVOTHYROXINE 75 MCG TAB PO SCH (05:35)
[2016-06-01] MEDS: ACYCLOVIR SOD INJ 750 MG in DEXTROSE 5% 250ML 250 ML IV SCH ×3 (05:35→23:31)
[2016-06-01] MEDS: CARVEDILOL 12.5 MG TAB PO SCH ×2 (07:50→20:27)
[2016-06-01] MEDS: ASPIRIN 81 MG ECTAB PO SCH (07:50)
[2016-06-01] MEDS: FLUOXETINE HCL 20 MG CAP PO SCH ×2 (07:51→20:27)
[2016-06-01] MEDS: RIVAROXABAN 20 MG TAB PO SCH (07:51)
[2016-06-01] MEDS: LISINOPRIL 5 MG TAB PO SCH (07:52)
[2016-06-01] MEDS: INSULIN ASPART 100 UNITS/ML 3 ML PEN SC SCH ×5 (07:58→22:53)
[2016-06-01 09:19] LABS: COMPLETE YES; IG% 0.2 %; LYMPH % 5.7 %; LYMPH ABS # 0.91 K/uL (1.2-3.4); MEAN CELL VOLUME 84.8 fL (80-100); MEAN CORPUSCULAR HEMOGLOBIN 29.2 pg (25-34); MEAN CORPUSCULAR HGB CONC 34.5 g/dl (32-36); MEAN PLATELET VOLUME 10.2 fL (7.4-10.4); MONO % 3.8 %; NEUT % 90.3 %; PLATELET COUNT 222 K/uL (130-400); RED BLOOD COUNT 5.78 M/uL (4.7-6.1); WHITE BLOOD COUNT 16.01 K/uL (4.8-10.8)
[2016-06-01] MEDS ORDERED: VANCOMYCIN TROUGH ONE (09:30)
[2016-06-01 09:32] LABS: BUN/CREATININE RATIO 22.3 (10-20); CREATININE 1.2 mg/dl (0.60-1.40); POTASSIUM 4.3 mmol/L (3.5-5.1)
[2016-06-01 09:35] LABS: ALB/GLOB RATIO 0.9 (0.9-2)
--- NOTE | 2016-06-01 10:36 | Pharmacy Progress Note ---
Pharmacy Antibiotic Prog Note Date of Service: Jun 01, 2016. Subjective: The patient is currently receiving Vancomycin 1700mg IV q12h. The patient is currently on day #3 of IV therapy. Objective: Height (Feet): 5 Height (Inches): 8.00 Weight (Kilograms): 120.800 Levels: Item Value Date Time Vancomycin Level Trough 22.0 mcg/ml 06/01/16 0855 Lab Results (24hrs): Laboratory Tests Test 06/01/16 08:55 BUN/Creatinine Ratio 22.3 Blood Urea Nitrogen 27 mg/dl Creatinine 1.20 mg/dl White Blood Count 16.01 K/uL Red Blood Count 5.78 M/uL Hemoglobin 16.9 g/dL Hematocrit 49.0 % Mean Corpuscular Volume 84.8 fL Mean Corpuscular Hemoglobin 29.2 pg Mean Corpuscular Hemoglobin Concent 34.5 g/dl Platelet Count 222 K/uL Mean Platelet Volume 10.2 fL Neutrophils (%) (Auto) 90.3 % Lymphocytes (%) (Auto) 5.7 % Monocytes (%) (Auto) 3.8 % Eosinophils (%) (Auto) 0.0 % Basophils (%) (Auto) 0.0 % Neutrophils # (Auto) 14.45 K/uL Lymphocytes # (Auto) 0.91 K/uL Monocytes # (Auto) 0.61 K/uL Eosinophils # (Auto) 0.00 K/uL Basophils # (Auto) 0.00 K/uL Micro Results: Item Value Date Time Blood Culture - Preliminary Resulted 05/30/16 0205 Blood NO GROWTH TO DATE. Blood Culture - Preliminary Resulted 05/30/16 0210 Blood NO GROWTH TO DATE. Urine Culture - Final Complete 05/30/16 0505 Urine,Catheterized NO GROWTH - LESS THAN 1,000 COLONIES/ML Gram Stain - Final Resulted 05/31/16 1107 Cerebral Spinal Fluid Fungal Culture Received 05/31/16 1107 Cerebral Spinal Fluid Pending Cryptococcal Antigen - Final Complete 05/31/16 1107 Cerebral Spinal Fluid NO CRYPTOCOCCAL ANTIGEN DETECTED Acid Fast Stain Received 05/31/16 1107 Cerebral Spinal Fluid Pending Recent Pertinent Medications: Item Value Date Time Vancomycin HCl 556 ml @ 200 mls/hr 05/30/16 0800 2800 mg/Sodium TODAY@0800/IV 05/30/16 0906 Chloride Vancomycin HCl 534 ml @ 200 mls/hr 05/30/16 2200 1700 mg/Sodium Q12@1000,2200/IV 05/31/16 2213 Chloride Vancomycin HCl 530 ml @ 200 mls/hr 06/01/16 1030 1500 mg/Sodium Q12@1000,2200/IV Chloride Item Value Date Time Ceftriaxone 70 ml @ 100 mls/hr 05/30/16 0337 Sodium 2000 mg/ NOW STAT/IV 05/30/16 0353 Dextrose Ceftriaxone 70 ml @ 100 mls/hr 05/30/16 1600 Sodium 2000 mg/ Q12@0400,1600/IV 06/01/16 0356 Dextrose Item Value Date Time Acyclovir Sodium 265 ml @ 265 mls/hr 05/30/16 0600 750 mg/Dextrose Q8H/IV 06/01/16 0535 Assessment & Plan: Vancomycin * Goal trough level: 15-20mcg/mL * Trough level drawn: 22mcg/mL --> slightly supratherapeutic * Change to: Vancomycin 1500mg IV q12h * est half-life ~ 9hr, likely accumulation due to BMI ~41kg/m2 * Trough level ordered for: 06/02/16 2200 dose Pharmacy will continue to follow and will adjust dose/frequency as necessary. Thank you
[2016-06-01] MEDS: VANCOMYCIN INJ 1,500 MG in SODIUM CHLORIDE 0.9% 500ML 500 ML IV SCH ×2 (10:47→23:31)
[2016-06-01] MEDS: INSULIN GLARGINE SOLOSTAR 100 UNITS/ML 3 ML PEN SC SCH ×2 (12:24→20:30)
--- NOTE | 2016-06-01 13:17 | Family Medicine Progress Note ---
Progress Note Date of Service Jun 01, 2016. Subjective Pt evaluation today including: conversation w/ patient Pain: denied PO Intake: adequate No acute events overnight. Acute Delirium has resolved per nurse. According to patient, He feels well and is requesting to go home when possible. He denied SOLOMON, N/V, neck stiffness, visual changes Constitutional: No chills, No fever Respiratory: No cough, No shortness of breath Cardiovascular: No chest pain, No edema, No palpitations Abdomen: No constipation, No diarrhea, No nausea, No pain, No vomiting Male : No dysuria, No urinary frequency Neurologic: No numbness/tingling, No paralysis, No weakness Skin: No itch, No rash Medications Current Inpatient Medications Medications (Trade) Dose Ordered Sig/Baljinder Route Start Time Stop Time Status Last Admin Dose Admin Acyclovir Sodium 750 mg/Dextrose 265 ml @ 265 mls/hr Q8H IV 05/30/16 06:00 06/03/16 23:59 06/01/16 05:35 265 MLS/HR Dexamethasone Sodium Phosphate/ Syringe (Decadron Inj/ Syringe) 1 ml @ 1 mls/min Q6H IV 05/30/16 10:00 06/29/16 09:59 06/01/16 10:07 1 MLS/MIN Ondansetron HCl (Zofran Inj) 4 mg Q6H PRN IV 05/30/16 03:45 06/29/16 03:44 Glucose (Glucose 40% Gel) 15-30 GRAMS 15 GRAMS... UD PRN PO 05/30/16 03:45 06/29/16 03:44 Dextrose (Dextrose 50% 50ML Syringe) 25-50ML OF 50% DW IV FOR... UD PRN IV 05/30/16 03:45 06/29/16 03:44 Glucagon (Glucagon Inj) 1 mg UD PRN SQ 05/30/16 03:45 06/29/16 03:44 Miscellaneous Information (Consult Glycemic Management Pharmacy) 1 ea DAILY PRN N/A 05/30/16 03:55 06/29/16 03:54 Lorazepam (Ativan Inj) 1 mg ONE PRN IV 05/30/16 03:45 06/29/16 03:44 05/31/16 17:03 1 MG Vancomycin HCl (Consult) 1 ea UD PRN N/A 05/30/16 06:15 06/29/16 06:14 Insulin Aspart (novoLOG ASPART) SLIDING SCALE ACHS SC 05/30/16 07:00 06/29/16 06:59 06/01/16 12:23 8 UNITS Glucose 4-8 Tablets 4 Tabl... UD PRN PO 05/30/16 06:30 06/29/16 06:29 Ceftriaxone Sodium/Dextrose (Rocephin Inj/D5 50ml) 70 ml @ 100 mls/hr Q12@0400,1600 IV 05/30/16 16:00 06/03/16 23:59 06/01/16 03:56 100 MLS/HR Levothyroxine Sodium (Synthroid Tab) 75 mcg DAILYBB PO 05/31/16 06:00 06/30/16 05:59 06/01/16 05:35 75 MCG Pravastatin Sodium (Pravachol Tab) 20 mg DAILY@17 PO 05/30/16 18:00 06/29/16 17:59 05/31/16 18:21 20 MG Fluoxetine HCl (Prozac Cap) 40 mg BID PO 05/31/16 21:00 06/30/16 20:59 06/01/16 07:51 40 MG Oxycodone HCl (Roxicodone Immediate Rel Tab) 5 mg Q4H PRN PO 05/31/16 12:00 06/14/16 11:59 06/01/16 00:00 5 MG Carvedilol (Coreg Tab) 12.5 mg BID PO 05/31/16 21:00 06/30/16 20:59 06/01/16 07:50 12.5 MG Aspirin (Ecotrin Tab) 81 mg QAM PO 06/01/16 09:00 07/01/16 08:59 06/01/16 07:50 81 MG Lisinopril (Zestril Tab) 5 mg QAM PO 06/01/16 09:00 07/01/16 08:59 06/01/16 07:52 5 MG Rivaroxaban (Xarelto Tab) 20 mg DAILY PO 06/01/16 09:00 07/01/16 08:59 06/01/16 07:51 20 MG Gadobutrol 12 mmol 12 mmol UD PRN IV 05/31/16 18:15 06/04/16 18:14 Vancomycin HCl/ Sodium Chloride (Vancomycin Inj/ Nss 500ml) 530 ml @ 200 mls/hr Q12@1000,2200 IV 06/01/16 10:30 06/03/16 23:59 06/01/16 10:47 200 MLS/HR Insulin Glargine (Lantus Solostar Pen) 5 unit BID SC 06/01/16 11:44 07/01/16 11:43 06/01/16 12:24 5 UNIT Objective Vital Signs Date Time Temp Pulse Resp B/P Pulse Ox O2 Delivery O2 Flow Rate FiO2 06/01/16 12:00 95 Room Air 06/01/16 11:55 36.9 64 19 148/87 97 Room Air 06/01/16 08:00 95 Room Air 06/01/16 07:59 36.6 72 18 152/98 95 Room Air 06/01/16 04:00 Room Air 06/01/16 03:33 37.0 79 18 150/89 95 Room Air 06/01/16 00:01 96 Room Air 05/31/16 23:14 37.2 83 18 158/92 96 Room Air 05/31/16 20:00 Room Air 05/31/16 20:00 37.0 80 18 156/95 96 Room Air 05/31/16 16:00 Room Air 05/31/16 15:57 36.6 76 20 158/94 96 Room Air Physical Exam Notes: GENERAL: alert, well appearing, well nourished, no distress, non-toxic EYE EXAM: normal conjunctiva, PERRL and EOM's grossly intact NECK: supple, no nuchal rigidity, no adenopathy, non-tender LUNGS: Clear to auscultation. Normal chest wall mechanics HEART: no murmurs, S1 normal and S2 normal ABDOMEN: abdomen soft, non-tender, normo-active bowel sounds, no masses, no rebound or guarding SKIN: no rashes and no bruising UPPER EXTREMITIES: upper extremities are grossly normal. LOWER EXTREMITIES: No pitting edema. NEURO EXAM: AOx3, Normal sensorium, cranial nerves II-XII grossly intact, normal speech, no gross weakness of arms, no gross weakness of legs. No drift. Gross sensation intact. Laboratory Results Results Past 24 Hours Test 05/31/16 20:44 06/01/16 06:59 06/01/16 08:55 06/01/16 11:14 Range/Units Bedside Glucose 182 242 206 70-99 mg/dl White Blood Count 16.01 4.8-10.8 K/uL Red Blood Count 5.78 4.7-6.1 M/uL Hemoglobin 16.9 14.0-18.0 g/dL Hematocrit 49.0 42-52 % Mean Corpuscular Volume 84.8 80-100 fL Mean Corpuscular Hemoglobin 29.2 25-34 pg Mean Corpuscular Hemoglobin Concent 34.5 32-36 g/dl Platelet Count 222 130-400 K/uL Mean Platelet Volume 10.2 7.4-10.4 fL Neutrophils (%) (Auto) 90.3 % Lymphocytes (%) (Auto) 5.7 % Monocytes (%) (Auto) 3.8 % Eosinophils (%) (Auto) 0.0 % Basophils (%) (Auto) 0.0 % Neutrophils # (Auto) 14.45 1.4-6.5 K/uL Lymphocytes # (Auto) 0.91 1.2-3.4 K/uL Monocytes # (Auto) 0.61 0.11-0.59 K/uL Eosinophils # (Auto) 0.00 0-0.5 K/uL Basophils # (Auto) 0.00 0-0.2 K/uL RDW Standard Deviation 43.1 36.4-46.3 fL RDW Coefficient of Variation 14.0 11.5-14.5 % Immature Granulocyte % (Auto) 0.2 % Immature Granulocyte # (Auto) 0.04 0.00-0.02 K/uL Sodium Level 139 136-145 mmol/L Potassium Level 4.3 3.5-5.1 mmol/L Chloride Level 104 98-107 mmol/L Carbon Dioxide Level 27 21-32 mmol/L Anion Gap 8.0 3-11 mmol/L Blood Urea Nitrogen 27 7-18 mg/dl Creatinine 1.20 0.60-1.40 mg/dl Est Creatinine Clear Calc Drug Dose 88.9 ml/min Estimated GFR () 79.0 Estimated GFR (Non- 68.1 BUN/Creatinine Ratio 22.3 10-20 Random Glucose 274 70-99 mg/dl Calcium Level 9.0 8.5-10.1 mg/dl Total Bilirubin 0.6 0.2-1 mg/dl Aspartate Amino Transf (AST/SGOT) 26 15-37 U/L Alanine Aminotransferase (ALT/SGPT) 32 12-78 U/L Alkaline Phosphatase 60 45-117 U/L Total Protein 7.5 6.4-8.2 gm/dl Albumin 3.5 3.4-5.0 gm/dl Globulin 4.0 2.5-4.0 gm/dl Albumin/Globulin Ratio 0.9 0.9-2 Vancomycin Level Trough 22.0 SEE COMMENT mcg/ml Test 06/01/16 16:02 Range/Units Bedside Glucose 180 70-99 mg/dl Assessment and Plan 56 yo M w/x hx of marijuana use p/w Acute Metabolic Encephalopathy. CT Head , MRI showing Old infarcts, CSF Fluid gram stain and cx's pending, viral serology pending., currently back at at baseline mental status Acute metabolic encephalopathy - Pt's mental status is back at his baseline. - CT MRI head shows several old intracranial infarcts. No acute process. MRI head today. - LP today was grossly normal, glucose elevated, protein mildly elevated, no WBC , no RBC <- may be normal due to Abx coverage. - c/w Ceftriaxone 2g daily, Vancomycin, and Acyclovir. (Day #3) - c/w Decadron 10mg now, and then 4mg q6h IV - Echocardiogram showed no evidence of valvular abnormality, cerebral infarcts are not acute or subacute, endocarditis remains on the differential. See cardiology recs below. - Urine tox screen positive for marijuana. - Lyme negative, RPR negative so far, other titres pending. -F/u viral serology, csf cx's Cardiac - Elevated Troponins, Cardiomyopahty, chronic Afib, chronic CHF (stable) - Telemetry monitoring showed Afib , rate controlled - Troponin peaked at 1.45, CKMB :CK ratio is WNL. - Echo - consistent with cardiomyopathy. - Cardiology - pt was seen in cardiology clinic one week prior for chronic afib and pt had no complaints, unlikely endocarditis in light of CT findings, Echo findings and clinical findings, restarting recent cath in 2010 was normal, no indications for new cath or RENATA echo at this time. - c/w Metoprolol 50mg BID. - Plan to restart Aspirin and Xarelto prior to d/c Sepsis, unclear etiology - Pt is improving clinically. - Blood and urine cultures no growth to date Type 2 DM - HBA1C = 6.0 - Glycemic consult - c/w home med Pravastatin. Mood - restarted Proxac (Fluoxetine) 40mg BID Chronic Back Pain - Oxycodone 5mg Q4 PRN. Hypothyroid - c/w Levothyroxine 75mcg. DVT Proph: anticoags held for LP. Plan to restart. Dispo: Tele, DM2 Diet, Full Code Resident Physician Supervision Note: I interviewed and examined the patient. Discussed with Dr. Luis Ray and agree with findings and plan as documented in the note. Any exceptions or clarifications are listed here: None THis pt was admitted with encephalopathy felt to be metabolic concern for meningitis given marked delerium, initial studies with LP are not initially supportive of a bacterial meningitis. Pt provides additional information 06/01 of using marijuana shortly before admission, feels may not be assured it was not contaminated, will continue therapy until cultures are negative tenative discharge 06/02, pt is at baseline according to providers anbd friends vss, afib controlled car is irregular lungs clear continue antibiotics, follow cultures, treat afib with rate control strongly encouraged no additional substance use Documented By: Elfego Hurst . Continued [facility] stay due to: other (labs pending) Discharge planning: home Resident Tracking Resident Involvement: Resident Care Provided Care Provided: Adult Hospital Medicine
[2016-06-01] MEDS: PRAVASTATIN SOD 20 MG TAB PO SCH (15:38)
--- NOTE | 2016-06-01 16:00 | Pharmacy Progress Note ---
Glycemic: Assessment & Plan Date of Service Jun 01, 2016. Assessment & Plan The patient received 25 units of insulin on 05/31. BSGs ranging 182-274 mg/dl over the past 24hrs. BSG's still rather high, likely due to ongoing steroid and multiple antibiotics. Will add a small dose of Lantus for this insulin-naive patient, and will reassess in am. * Basal insulin: Lantus 5 units every 12 hours * Correctional Insulin: Novolog Correction per scale ACHS Goal Range: Low 110 mg/dL - High 150 mg/dL Correction Factor: 20 mg/dL/unit * Prandial insulin: Per carb ratio of 1 unit per 6 grams CHO consumed BSGs continue to improve, no other changes needed to inpatient regimen at this time. Pharmacy will continue to monitor patient daily and write orders per [facility] inpatient glycemic control protocol. Thanks. * Please note that the plan above was derived based on current level of insulin resistance and hospital stress. These recommendations are appropriate for inpatient admission only. Plan of care upon discharge will need to be reassessed to avoid potential outpatient hypo/hyperglycemia.
[2016-06-02] MEDS: DEXAMETHASONE INJ 4 MG in SYRINGE 0 ML IV SCH ×2 (03:45→10:24)
[2016-06-02] MEDS: CEFTRIAXONE SOD INJ 2,000 MG in DEXTROSE 5% 50ML 50 ML IV SCH (03:49)
[2016-06-02] MEDS: LEVOTHYROXINE 75 MCG TAB PO SCH (05:52)
[2016-06-02] MEDS: ACYCLOVIR SOD INJ 750 MG in DEXTROSE 5% 250ML 250 ML IV SCH (07:36)
[2016-06-02] MEDS: RIVAROXABAN 20 MG TAB PO SCH (07:38)
[2016-06-02] MEDS: ASPIRIN 81 MG ECTAB PO SCH (07:38)
[2016-06-02] MEDS: FLUOXETINE HCL 20 MG CAP PO SCH (07:38)
[2016-06-02] MEDS: CARVEDILOL 12.5 MG TAB PO SCH (07:38)
[2016-06-02] MEDS: LISINOPRIL 5 MG TAB PO SCH (07:39)
[2016-06-02] MEDS: INSULIN GLARGINE SOLOSTAR 100 UNITS/ML 3 ML PEN SC SCH (07:54)
[2016-06-02 08:04] VITALS: BP 155/93; PULSE 79; TEMP 36.8; O2SAT 96
[2016-06-02] MEDS: INSULIN ASPART 100 UNITS/ML 3 ML PEN SC SCH ×2 (08:39→11:00)
[2016-06-02] MEDS: VANCOMYCIN INJ 1,500 MG in SODIUM CHLORIDE 0.9% 500ML 500 ML IV SCH (10:09)
--- NOTE | 2016-06-02 11:19 | Discharge Instructions ---
Discharge Instructions Date of Service Jun 02, 2016. Admission Reason for Admission: Altered Mental Status Discharge Discharge Diagnosis / Problem: Acute Metabolic Encephalopathy Discharge Goals Goal(s): Decrease discomfort, Improve function, Increase independence, Improve disease control, Improve nutritional status, Learn about illness, Diagnostic testing, Therapeutic intervention, Screening, Prevent Disease Progression, Specific goals Activity Recommendations Activity Limitations: resume your previous activity . Instructions / Follow-Up Instructions / Follow-Up You presented with Altered Mental status likely due to drug reaction. Your workup included imaging of the brain which showed Old Strokes but no new finding. You also had a spinal tap for which the results do not appear to be consistent with infection of the brain. -Please avoid recreational drugs -Please follow up with Primary care provider this week -If your symptoms return or worsen or if you experience fever, chills, Chest pain, Shortness of breath, palpitation, weakness, please call clinic or return to Emergency Dept. Current Hospital Diet Patient's current hospital diet: Diabetes Type 2 Diet Discharge Diet Recommended Diet: Regular Diet Pending Studies Studies pending at discharge: yes List of pending studies: Final CSF cultures Viral Serology VAHID, ANCA Laboratory Results Hemoglobin A1c Test 05/31/16 03:22 Range/Units Estimated Average Glucose 126 mg/dl Hemoglobin A1c 6.0 H 4.5-5.6 % Medical Emergencies . Who to Call and When: Medical Emergencies: If at any time you feel your situation is an emergency, please call 911 immediately. . Non-Emergent Contact Non-Emergency issues call your: Primary Care Provider Call Non-Emergent contact if: you have a fever, temperature is above 100.5, your pain is not controlled, your pain is worsening, your pain is unusual for you, your pain is concerning you, you have any medication questions . . "Provider Documentation" section prepared by Luis Ray. VTE Core Measure Inpt VTE Proph given/why not?: SCD's
[2016-06-02 11:49] VITALS: BP 155/93; PULSE 79; TEMP 36.8; O2SAT 96
--- NOTE | 2016-06-02 12:44 | Discharge Summary ---
Discharge Summary Date of Service Jun 02, 2016. (Luis Ray MD) Discharge Summary Admission Date: May 30, 2016 at 03:38 Discharge Date: Jun 02, 2016 Discharge Disposition: Home Principal Diagnosis: Toxic Encephalopathy (Luis Ray MD) Discharge Date: Jun 02, 2016 Discharge Disposition: Home Principal Diagnosis: toxic encephalopathy (Elfego Hurst M.D.) Medication Reconciliation Continued Medications: Acetaminophen (Tylenol) 500 Mg Tab 500 MG PO Q4H PRN for Pain, TAB Allopurinol (Zyloprim) 300 Mg Tab 300 MG PO DAILY, TAB Amitriptyline Hcl (Elavil) 50 Mg Tab 50 MG PO HS, 0 Refills Buspirone Hcl (Buspirone Hcl) 30 Mg Tab 15 MG PO BID, TAB Fluoxetine (Prozac) 40 Mg Cap 40 MG PO BID, CAP Levothyroxine Sodium (Levothyroxine Sodium) 75 Mcg Tab 75 MCG PO DAILY, TAB Lisinopril (Zestril) 5 Mg Tab 5 MG PO DAILY, 0 Refills Metformin Hcl (Glucophage) 1,000 Mg Tab 1500 MG PO DAILY, TAB Metoprolol Tartrate (Lopressor) (Lopressor) 50 Mg Tab 50 MG PO BID, TAB Omeprazole (Prilosec) 40 Mg Cap 40 MG PO DAILY, CAP Pravastatin (Pravachol ) 20 Mg Tab 40 MG PO DAILY, 0 Refills Rivaroxaban (Xarelto) 20 Mg Tab 20 MG PO DAILY, TAB Trazodone Hcl (Trazodone) 100 Mg Tab 100 MG PO HS, TAB Discharge Exam Review of Systems: Constitutional: No chills, No fever, No weakness Eyes: No diplopia, No eye pain, No worsening of vision Respiratory: No cough, No shortness of breath Cardiovascular: No chest pain, No edema, No palpitations Abdomen: No constipation, No diarrhea, No nausea, No pain, No vomiting Genitourinary - Male: No dysuria, No hematuria, No urinary frequency, No urinary urgency Neurologic: + problem reported (NO headache, no vision changes, no neck stiffness), No numbness/tingling, No paralysis, No weakness Psychiatric: + substance abuse (marijuana ( prior to arrival)) Integumentary: No itch, No rash Physical Exam: General Appearance: WD/WN, no apparent distress Eyes: PERRL, EOMI, sclerae normal Neck: supple, no adenopathy, no carotid bruits, trachea midline Respiratory/Chest: normal breath sounds, no respiratory distress Cardiovascular: no edema, no gallop, no murmur, + irregularly irregular Abdomen / GI: normal bowel sounds, non tender, soft Extremities: no calf tenderness, no pedal edema, non-tender Neurologic/Psychiatric: alert, normal mood/affect, oriented x 3 Skin: normal color, warm/dry (Luis Ray MD) Hospital Course This is a 56 yo M with hx of afib on xarelto,hx of cva, htn, hld, who presented with encephalopathy. Patient came into the ED tachycardic, hypertensive, with a lactate of 3. He was initially managed for presumed sepsis secondary to possible encephalitis/meningitis. He was placed on IV zosyn, daptomycin in the ED and Acyclovir, decadron to treat possible encephalitis. Elevated Troponin was also found in ED, but after cardiology consult, it was deemed not to be attributed to ACS. Following admission, abx were changed to Vanc, Ceftriaxone in addition to Acyclovir. CT Head, MRI Brain showed old infarcts but no new pertinent findings. Blood cx's, Urine cx's were eventually found to be negative.CSF fluid cx showed no growth.UTox was positive for Marijuana and prior to departure, patient confirmed the marijuana he consumed could potentially have been laced with unknown chemicals. During the course of patient's hospitalization, his vital signs stabilized and his mental state improved to baseline. Based on negative cx's etiology of patient's encephalopathy was toxic likely to due recreational drug use. Abx/antiviral treatment was discontinued prior to discharge. Patient was discharged with follow up to primary care provider. Total Time Spent: Greater than 30 minutes This includes examination of the patient, discharge planning, medication reconciliation, and communication with other providers. (Luis Ray MD) Resident Physician Supervision Note: I interviewed and examined the patient. Discussed with Dr. Luis Ray and agree with findings and plan as documented in the note. Any exceptions or clarifications are listed here: None THis pt was admitted with encephalopathy felt to be metabolic concern for meningitis given marked delerium, initial studies with LP are not initially supportive of a bacterial meningitis. Pt provides additional information 06/01 of using marijuana shortly before admission, feels may not be assured it was not contaminated,spinal fluid cultures are negative, discharge 06/02, pt is at baseline according to providers and friends vss, afib controlled car is irregular lungs clear Strongly recommended pcp follow up in a week afib with rate control strongly encouraged no additional substance use Documented By: Elfego Hurst Total Time Spent: Greater than 30 minutes (Elfego Hurst M.D.) Discharge Instructions Please refer to the electronic Patient Visit Report (Discharge Instructions) for additional information. (Luis Ray MD) Resident Tracking Resident Involvement: Resident Care Provided Care Provided: Adult [facility] Medicine (Luis Ray MD)
[2016-06-02] MEDS ORDERED: VANCOMYCIN TROUGH SCH (21:30)
[2016-06-03 00:36] LABS: EHRLICHIA CHAFF IGG AB <1:64 (<1:64); EHRLICHIA CHAFF IGM AB <1:20 (<1:20)
--- NOTE | 2016-06-03 13:09 | EDITING REQUIRED CODING QUERY ---
CODING QUERY To promote full compliance with coding requirements relating to patient care, provider participation is requested in all cases of oracle technical architect uncertainty. Please assist us with the question(s) below: Coding Question(s): Severe sepsis due to bacterial meningitis or viral encephalitis is documented throughout the patient's stay until the discharge summary where toxic encephalopathy due to recreational drug use is documented as being the cause of the patient's altered mental status. All antibiotics and antiviral meds were discontinued. Were sepsis, meningitis, and encephalitis ruled out? yes Physician's Response(s): Thank you Kelly Owen Principal Diagnosis: "_that condition established after study, to be chiefly responsible for occasioning the admission of the patient to the hospital for care." Co-Existing Principal Diagnosis: "_when two or more diagnoses equally meet the criteria for principal diagnosis as determined by the circumstances of admission, diagnostic work up, and/or therapy provided, and the Alphabetic Index, Tabular List, or another coding guideline does not provide sequencing direction, any one of the diagnoses may be sequenced first." "When the physician has documented what appears to be a current diagnosis in the body of the record, but has not included the diagnosis in the final diagnostic statement, the physician should be asked whether the diagnosis should be added." (Source Coding [facility] 2 QTR90. p3-4)
[2016-06-04 15:25] LABS: HSV TYPE 1 DNA Not Detected (Not Detected); HSV TYPE 1&2 DNA SOURCE CSF; HSV TYPE 2 DNA Not Detected (Not Detected); LYME DNA PCR CSF OR SYNOVIAL Not detected (Not Detected); LYME DNA SOURCE CSF; VARICELLA ZOSTER DNA PCR QUAL Not Detected (Not Detected); VZ DNA SOURCE CSF
== END 2016-06-02 13:05 | disposition home or self-care (01) | DRG 91 ==
LOC: ENRESERVTM → ENRESERVDT → EDBD 01:53 → C.EDB 01:54 → C.2T 03:38 → UNDOADMIN 03:38 → EDBEDREQ 04:05 → C.MS4W 06-01 20:42
PROVIDERS: ADMIT Hospitalist; ATTEND Internal Medicine
PROC: 0T9B70Z Drainage of Bladder with Drainage Device, Via Natural or Artificial Opening (ICD-10-PCS; principal; 2016-05-30)
PROC: 009U3ZX Drainage of Spinal Canal, Percutaneous Approach, Diagnostic (ICD-10-PCS; 2016-05-31)
DX: G92 Toxic encephalopathy (principal); I21.4 Non-ST elevation (NSTEMI) myocardial infarction; I50.32 Chronic diastolic (congestive) heart failure; I42.9 Cardiomyopathy, unspecified; Z68.41 Body mass index [BMI] 40.0-44.9, adult; T65.891A Toxic effect of other specified substances, accidental (unintentional), initial encounter; T40.7X1A Poisoning by cannabis (derivatives), accidental (unintentional), initial encounter; I48.2 Chronic atrial fibrillation; I10 Essential (primary) hypertension; E11.9 Type 2 diabetes mellitus without complications; M10.9 Gout, unspecified; E03.9 Hypothyroidism, unspecified; K21.9 Gastro-esophageal reflux disease without esophagitis; E78.5 Hyperlipidemia, unspecified; G89.29 Other chronic pain; M54.9 Dorsalgia, unspecified; F32.9 Major depressive disorder, single episode, unspecified; E66.01 Morbid (severe) obesity due to excess calories; Z86.73 Personal history of transient ischemic attack (TIA), and cerebral infarction without residual deficits; Z79.01 Long term (current) use of anticoagulants; Z79.84 Long term (current) use of oral hypoglycemic drugs; Z79.899 Other long term (current) drug therapy; Z88.2 Allergy status to sulfonamides; Z82.49 Family history of ischemic heart disease and other diseases of the circulatory system

== ENCOUNTER 2021-07-12 21:52 | Observation (INO) ==
--- NOTE | 2021-07-12 22:12 | Emergency Department Note ---
Impression & Plan Acute dehydration, Weakness, Forgetfulness, A-fib, Brain TIA ED Provider Note NAME: MEREDITH NAPOLES AGE: 61 SEX: M : 1960 ARRIVES VIA: Ambulance INFORMANT: [Patient][, ] ED PROVIDER(S): [Carter Carlton MD] Chief Complaint: [] HPI: Patient presents at home as the patient was found on the ground and neighbors had alerted EMS. They were concerned as the patient has been occasionally confused and has not been taking his medications for the last several days. Patient does complain of some mild left-sided chest discomfort after his fall but otherwise no acute complaints. Patient denies any nausea vomiting or diarrhea. The patient reportedly had presented last evening for similar symptoms and left AGAINST MEDICAL ADVICE. The patient does have other medications but they were reportedly and he has not been taking these. Patient denies any head or neck pain. Patient has had some intermittent forgetfulness. 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 Patient denies any abdominal pain. ROS: See HPI for pertinent positives and negatives. A total of 10 systems were reviewed and otherwise negative. Past medical history: See below Surgical history: See below Social history: See below Physical Exam: GENERAL: NAD, [wearing glasses,][wearing a mask,] non-toxic. EYE EXAM: Normal conjunctiva. PERRL, no anisocoria and EOM's grossly intact w/o pain. [OROPHARYNX: Moist mucus membranes. Poor dentition. NECK: Supple, no nuchal rigidity, no adenopathy, non-tender. No signs of meningismus. [FROM of the neck with good chin to chest and neck extension. No stridor.] Chest: Very mild left anterior chest wall discomfort without crepitus or flail chest. No obvious bruising. LUNGS: Clear to auscultation. Normal chest wall mechanics. HEART: Irregularly irregular, no MRG. ABDOMEN: Abdomen soft, non-tender, normo-active bowel sounds, no masses, no rebound or guarding. BACK: No CVA TTP. SKIN: No rashes and no bruising. UPPER EXTREMITIES: Upper extremities are grossly normal. LOWER EXTREMITIES: Grossly normal, no edema. NEURO EXAM: A&O x3, cranial nerves II-XII grossly intact, normal speech, moves all 4 extremities on command w/o issue. [Good finger to nose, no drift, no sensory deficits.] Differential diagnoses: Infection, dehydration, metabolic abnormality, hypo/hyperglycemia, electrolyte disturbance, anemia, hypoxia, cardiac sources, intracerebral event, toxicologic, neurologic, as well as other pathologies. Course: Patient was seen and evaluated the bedside. Full history physical exam was performed. EKG interpreted by me Onesimo hall, rate of 86, wide QRS, right bundle branch block pattern. Left axis deviation Imaging Studies: See Below Cardiac monitoring: An order was placed for continuous cardiac monitoring. The monitor shows a rate of 87 with irregularly irregular rhythm. MDM: Patient was seen due to concern for confusion and recent diagnosis of acute stroke but had left AGAINST MEDICAL ADVICE. Also concern for noncompliance. Blood work was obtained. Patient did have a chest x-ray completed.Chest x-ray looks unchanged from comparison completed on July 11. Patient did have bladder completed which showed a normal white count H&H and platelet count. The patient's kidney function is unremarkable. Elevated blood glucose with the patient is not in DKA. CK slightly elevated at 479 with an elevated TSH but normal free T4. COVID-negative. Patient did receive IV fluids. I did speak with the on-call hospitalist Dr. Fong and the patient was admitted to the medicine service. Past Med/Surg History Medical History Atrial fibrillation Diabetes Social History Smoking Status: Never smoker Tobacco Type: Smokeless Tobacco (Dip or Chew) Preferred Language: Citizen Of [place] Feels Safe at Home: Yes Allergies Allergies Allergy/AdvReac Type Severity Reaction Status Date / Time bee venom protein (honey bee) Allergy Severe Anaphylaxis Verified 07/11/21 21:56 Sulfa (Sulfonamide Allergy Unknown CAN'T Verified 07/11/21 21:56 Antibiotics) REMEMBER Home Meds Home Medications Medication Instructions Recorded Confirmed buspirone 15 mg tablet 15 mg PO BID 05/06/18 07/11/21 fluoxetine 20 mg capsule (Prozac) 20 mg PO DAILY 05/06/18 07/11/21 lisinopril 30 mg tablet 30 mg PO DAILY 05/06/18 07/11/21 metoprolol tartrate 50 mg tablet 50 mg PO BID 05/06/18 07/11/21 (Lopressor) omeprazole 40 mg capsule,delayed 40 mg PO DAILY 05/06/18 07/11/21 release gabapentin 600 mg tablet 600 mg PO BID tab 05/15/20 07/11/21 (Neurontin) rivaroxaban 20 mg tablet (Xarelto) 20 mg PO DAILY tab 05/15/20 07/11/21 allopurinol 300 mg tablet 300 mg PO DAILY 07/11/21 07/11/21 aspirin 325 mg tablet 325 mg PO DIRECTED PRN 07/11/21 07/11/21 baclofen 10 mg tablet 10 mg PO BID PRN 07/11/21 07/11/21 duloxetine 30 mg capsule,delayed 30 mg PO DAILY 07/11/21 07/11/21 release duloxetine 60 mg capsule,delayed 60 mg PO DAILY 07/11/21 07/11/21 release sprinkle epinephrine 0.3 mg/0.3 mL 0.3 mg IM DIRECTED PRN 07/11/21 07/11/21 injection, auto-injector gemfibrozil 600 mg tablet 600 mg PO BID 07/11/21 07/11/21 glipizide 10 mg tablet, extended 10 mg PO DAILY 07/11/21 07/11/21 release 24 hr glipizide 5 mg tablet, extended 5 mg PO DAILY 07/11/21 07/11/21 release 24 hr hydroxyzine HCl 50 mg tablet 50 mg PO BID PRN 07/11/21 07/11/21 insulin NPH isoph U-100 human 100 10 unit SUBCUT QPM 07/11/21 07/11/21 unit/mL (3 mL) subcutaneous pen (Novolin N Flexpen) levothyroxine 125 mcg tablet 125 mcg PO DAILY 07/11/21 07/11/21 metformin 500 mg tablet,extended 1,000 mg PO BID 07/11/21 07/11/21 release 24hr pravastatin 80 mg tablet 80 mg PO DAILY 07/11/21 07/11/21 Results & Data (ED) Vital Signs Vital Signs - 24 hr 07/12/21 22:01 07/12/21 22:55 07/12/21 23:00 Temperature 37.1 C 37 C Temperature Source Oral Oral Pulse Rate 92 H 78 Pulse Rate [Apical] Pulse Rhythm [Apical] Irregular Pulse Strength [Apical] Normal Respiratory Rate 26 H 18 Respiratory Effort / Characteristics Non-Labored Non-Labored Spontaneous Respiratory Depth Normal Respiratory Pattern Regular Blood Pressure 126/72 Blood Pressure [Right Arm] 126/72 Blood Pressure Mean 90 Blood Pressure Mean [Right Arm] 90 Blood Pressure Position [Right Arm] Lying Pulse Oximetry 96 96 97 Oxygen Delivery Method Room Air Room Air Room Air Sepsis Recent Fever Within 48 Hours No Sepsis New/Unexplained Change in Mental Status N/A Sepsis Action Taken by Nursing No Action Required 07/13/21 00:00 07/13/21 01:00 Temperature 37.1 C Temperature Source Oral Pulse Rate Pulse Rate [Apical] 75 75 Pulse Rhythm [Apical] Regular Irregular Pulse Strength [Apical] Normal Normal Respiratory Rate 18 16 Respiratory Effort / Characteristics Non-Labored Spontaneous Non-Labored Spontaneous Respiratory Depth Normal Normal Respiratory Pattern Regular Regular Blood Pressure Blood Pressure [Right Arm] 126/74 123/71 Blood Pressure Mean Blood Pressure Mean [Right Arm] 91 88 Blood Pressure Position [Right Arm] Lying Lying Pulse Oximetry 96 96 Oxygen Delivery Method Room Air Room Air Sepsis Recent Fever Within 48 Hours Sepsis New/Unexplained Change in Mental Status Sepsis Action Taken by Nursing Laboratory Data Result diagrams: 07/12/21 22:49 07/12/21 22:49 Lab Results 07/12/21 07/12/21 07/12/21 Range/Units 22:49 22:49 22:49 WBC 10.34 (4.8-10.8) K/uL RBC 4.91 (4.7-6.1) M/uL Hgb 15.1 (14.0-18.0) g/dL Hct 43.7 (42-52) % MCV 89.0 (80-100) fL MCH 30.8 (25-34) pg MCHC 34.6 (32-36) g/dL RDW Std Deviation 42.4 (36.4-46.3) fL RDW Coeff of Marlene 13.1 (11.5-14.5) % Plt Count 196 (130-400) K/uL MPV 9.7 (7.4-10.4) fL Immature Gran % (Auto) 0.4 % Neut % (Auto) 72.6 % Lymph % (Auto) 19.1 % [place] % (Auto) 6.3 % Eos % (Auto) 1.5 % Baso % (Auto) 0.1 % Neut # (Auto) 7.50 H (1.4-6.5) K/uL Lymph # (Auto) 1.98 (1.2-3.4) K/uL [place] # (Auto) 0.65 H (0.11-0.59) K/uL Eos # (Auto) 0.16 (0-0.5) K/uL Baso # (Auto) 0.01 (0-0.2) K/uL Immature Gran # (Auto) 0.04 H (0.00-0.02) K/uL Sodium 138 (136-145) mmol/L Potassium 4.5 D (3.5-5.1) mmol/L Chloride 104 (98-107) mmol/L Carbon Dioxide 27 (21-32) mmol/L Anion Gap 7 (3-11) BUN 17 (6-23) mg/dl Creatinine 0.93 (0.6-1.4) mg/dl Est Cr Clr Drug Dosing 115.3 ml/min Est GFR ( Amer) 103.8 ml/min Est GFR (Non-Af Amer) 89.5 ml/min BUN/Creatinine Ratio 18.3 (10-20) Glucose 285 H (70-99(Fasting)) mg/dl Calcium 8.5 (8.5-10.1) mg/dl Magnesium 1.9 (1.7-2.4) mg/dl Total Bilirubin 0.6 (0.2-1.0) mg/dl AST 31 (13-39) U/L ALT 25 (7-52) U/L Alkaline Phosphatase 75 (34-104) U/L Total Creatine Kinase 479 H (30-223) U/L Total Protein 6.9 (6.0-8.3) gm/dl Albumin 4.0 (3.4-5.0) gm/dl Globulin 2.9 (2.5-4.0) gm/dl Albumin/Globulin Ratio 1.4 (0.9-2) TSH 5.760 H (0.300-4.500) uIu/ml Free T4 0.74 (0.61-1.60) ng/dl Urine Color Urine Appearance (Clear) Urine pH (4.5-7.5) Ur Specific [place] (1.000-1.030) Urine Protein (Negative) Urine Glucose (UA) (Negative) Urine Ketones (Negative) Urine Blood (Negative) Urine Nitrite (Negative) Urine Bilirubin (Negative) Urine Urobilinogen (Negative) Ur Leukocyte Esterase (Negative) Urine WBC (Auto) (0-5) /hpf Urine RBC (Auto) (0-4) /hpf U Hyaline Cast (Auto) (0-5) /lpf U Epithel Cells (Auto) (0-5) /lpf Urine Bacteria (Auto) (Negative) SARS-CoV-2, RNA, NAAT (NEGATIVE) 07/12/21 07/13/21 Range/Units 22:49 00:20 WBC (4.8-10.8) K/uL RBC (4.7-6.1) M/uL Hgb (14.0-18.0) g/dL Hct (42-52) % MCV (80-100) fL MCH (25-34) pg MCHC (32-36) g/dL RDW Std Deviation (36.4-46.3) fL RDW Coeff of Marlene (11.5-14.5) % Plt Count (130-400) K/uL MPV (7.4-10.4) fL Immature Gran % (Auto) % Neut % (Auto) % Lymph % (Auto) % [place] % (Auto) % Eos % (Auto) % Baso % (Auto) % Neut # (Auto) (1.4-6.5) K/uL Lymph # (Auto) (1.2-3.4) K/uL [place] # (Auto) (0.11-0.59) K/uL Eos # (Auto) (0-0.5) K/uL Baso # (Auto) (0-0.2) K/uL Immature Gran # (Auto) (0.00-0.02) K/uL Sodium (136-145) mmol/L Potassium (3.5-5.1) mmol/L Chloride (98-107) mmol/L Carbon Dioxide (21-32) mmol/L Anion Gap (3-11) BUN (6-23) mg/dl Creatinine (0.6-1.4) mg/dl Est Cr Clr Drug Dosing ml/min Est GFR ( Amer) ml/min Est GFR (Non-Af Amer) ml/min BUN/Creatinine Ratio (10-20) Glucose (70-99(Fasting)) mg/dl Calcium (8.5-10.1) mg/dl Magnesium (1.7-2.4) mg/dl Total Bilirubin (0.2-1.0) mg/dl AST (13-39) U/L ALT (7-52) U/L Alkaline Phosphatase (34-104) U/L Total Creatine Kinase (30-223) U/L Total Protein (6.0-8.3) gm/dl Albumin (3.4-5.0) gm/dl Globulin (2.5-4.0) gm/dl Albumin/Globulin Ratio (0.9-2) TSH (0.300-4.500) uIu/ml Free T4 (0.61-1.60) ng/dl Urine Color Yellow Urine Appearance Clear (Clear) Urine pH 5.0 (4.5-7.5) Ur Specific [place] 1.027 (1.000-1.030) Urine Protein 1+ H (Negative) Urine Glucose (UA) 3+ H (Negative) Urine Ketones Trace H (Negative) Urine Blood Trace H (Negative) Urine Nitrite Negative (Negative) Urine Bilirubin Negative (Negative) Urine Urobilinogen Negative (Negative) Ur Leukocyte Esterase Negative (Negative) Urine WBC (Auto) 0 (0-5) /hpf Urine RBC (Auto) 0-4 (0-4) /hpf U Hyaline Cast (Auto) 0 (0-5) /lpf U Epithel Cells (Auto) 5-10 H (0-5) /lpf Urine Bacteria (Auto) Negative (Negative) SARS-CoV-2, RNA, NAAT NEGATIVE (NEGATIVE) Administered Medications Discontinued Medications Sodium Chloride (Nss) 500 mls @ 999 mls/hr IV .Q31M AMAURY Stop: 07/12/21 23:00 Last Infusion: 07/13/21 00:25 Dose: 0 mls/hr Documented by: [id number] Admin: 07/12/21 22:55 Dose: 999 mls/hr Documented by: [id number] Insulin Aspart (Insulin Aspart Per Unit) 5 units SC NOW STA Stop: 07/13/21 00:04 Last Admin: 07/13/21 00:55 Dose: 5 units Documented by: [id number] Cosigned by: [id number] Morphine Sulfate (Morphine Sulfate 2 Mg/Ml Carp) 2 mg IV NOW STA Stop: 07/12/21 23:20 Last Admin: 07/12/21 23:37 Dose: 2 mg Documented by: [id number] Discharge Plan Visit Data Chief Complaint: Weakness ED Provider: Carter Carlton Discharge Problem: Acute dehydration, Weakness, Forgetfulness, A-fib, Brain TIA Forms Stand Alone Forms: [facility] Prescriptions Prescriptions: No Action omeprazole 40 mg capsule,delayed release(DR/EC) 40 mg PO DAILY RF: 0 metoprolol tartrate [Lopressor] 50 mg tablet 50 mg PO BID RF: 0 buspirone 15 mg tablet 15 mg PO BID RF: 0 lisinopril 30 mg tablet 30 mg PO DAILY RF: 0 fluoxetine [Prozac] 20 mg capsule 20 mg PO DAILY RF: 0 gabapentin [Neurontin] 600 mg tablet 600 mg PO BID RF: 0 Xarelto 20 mg tablet 20 mg PO DAILY RF: 0 hydroxyzine HCl 50 mg tablet 50 mg PO BID PRN (Reason: Anxiety) RF: 0 pravastatin 80 mg tablet 80 mg PO DAILY RF: 0 baclofen 10 mg tablet 10 mg PO BID PRN (Reason: MUSCLE SPASMS) RF: 0 levothyroxine 125 mcg tablet 125 mcg PO DAILY RF: 0 allopurinol 300 mg tablet 300 mg PO DAILY RF: 0 epinephrine 0.3 mg/0.3 mL auto-injector 0.3 mg IM DIRECTED PRN (Reason: Allergic Reaction) RF: 0 Novolin N Flexpen 100 unit/mL (3 mL) insulin pen 10 unit SUBCUT QPM RF: 0 duloxetine 30 mg capsule,delayed release(DR/EC) 30 mg PO DAILY RF: 0 aspirin 325 mg Tablet 325 mg PO DIRECTED PRN (Reason: Pain) RF: 0 glipizide 10 mg Tablet Extended Release 24hr 10 mg PO DAILY RF: 0 glipizide 5 mg Tablet Extended Release 24 Hr 5 mg PO DAILY RF: 0 gemfibrozil 600 mg Tablet 600 mg PO BID RF: 0 metformin 500 mg Tablet Extended Release 24hr 1,000 mg PO BID RF: 0 duloxetine 60 mg Capsule, Delayed Rel Sprinkle 60 mg PO DAILY RF: 0 Referrals Referrals: Camille Bhandari MD [Primary Care Provider] -
[2021-07-12] MEDS ORDERED: SODIUM CHLORIDE 0.9% 500 ML IV SCH (22:30)
[2021-07-12 23:07] LABS: Basophils # (auto) 0.01 K/uL (0-0.2); Basophils % (auto) 0.1 %; Eosinophils # (auto) 0.16 K/uL (0-0.5); Eosinophils % (auto) 1.5 %; Hematocrit (blood only) 43.7 % (42-52); Hemoglobin 15.1 g/dL (14.0-18.0); Immature Granulocytes # (auto) 0.04 K/uL (0.00-0.02); Immature Granulocytes % (auto) 0.4 %; Lymphocytes # (auto) 1.98 K/uL (1.2-3.4); Lymphocytes % (auto) 19.1 %; Mean Corpuscular Hemoglobin 30.8 pg (25-34); Mean Corpuscular Hgb Conc 34.6 g/dL (32-36); Mean Platelet Volume 9.7 fL (7.4-10.4); Monocytes # (auto) 0.65 K/uL (0.11-0.59); Monocytes % (auto) 6.3 %; Neutrophils % (auto) 72.6 %; Platelet Count 196 K/uL (130-400); RDW Coefficient of Variation 13.1 % (11.5-14.5); RDW Standard Deviation 42.4 fL (36.4-46.3); Red Blood Count 4.91 M/uL (4.7-6.1); White Blood Count 10.34 K/uL (4.8-10.8)
[2021-07-12] MEDS ORDERED: MoRPHine SULFATE 2 MG/ML CARP IV STA (23:19)
--- NOTE | 2021-07-12 23:28 | History & Physical Report ---
Date of Service July 12, 2021 Assessment & Plan (1) Acute CVA (cerebrovascular accident): Plan: This is a 61-year-old male with a history of paroxysmal atrial fibrillation, HFpEF, type 2 diabetes, hypercholesterolemia, morbid obesity, KRISTIAN, tobacco use who presented to [facility] for evaluation of altered mental status. Transient Ischemic Attack / Episode of Anterograde Amnesia Patient reporting intermittent periods of forgetfulness throughout the afternoon on day SPINNER FIXER, +unwitnessed fall where he hit his head w/o LOC; further history reveals ?intermittent periods of amnesia throughout 2 days prior to this event Comprehensive w/u as follows Patient reportedly stopped all of his medications 2 days prior, including serotonergics BMP, CBC, Lyme largely unremarkable; ABG day SPINNER FIXER with very mild respiratory alkalosis (PCO2 7.47/PCO2 32) TSH mildly elevated at 5.8 CT-H (07/11): "Multiple old infarcts, similar to prior exam. Several lacunar infarcts are new since prior exam but appear chronic. Age indeterminate 1.4 cm infarct within the posterior limb of the right internal capsule." MRI (07/11): "1.7 x 0.8 cm acute infarct within the posterior limb of the right internal capsule. No mass effect. No hemorrhage". ABCD2 score: 2 (duration 30 min, h/o T2DM) Etiology likely multifactorial. TIA in the R internal capsule noted on imaging . Likely compounded by degree of concussion after hitting his head day SPINNER FIXER. Medication withdrawal (e.g., Cymbalta/Prozac/BuSpar) may have also contributed. Check CTA-H/N given extensive h/o old infarcts on brain imaging Resume home medications as prescribed Check TTE Check A1c, lipids, B12 PT, OT evaluations greatly appreciated Neurochecks q4 Consult Neurology: appreciate diagnostic expertise and ?need for other therapies (e.g., single antiplatelet - but he is on Xarelto) given extensive h/o TIAs seen on imaging Noted that patient is on anticoagulation (2) Type 2 diabetes mellitus: Plan: A1c noted at 8.1% in 06/2021 per [facility] records Hold home medications: Metformin, glipizide, insulin NPH Initiate ACHS glucose checks with sliding scale (CF: 1:30) Carb consistent diet, can consider adding carb ratio if needed (3) Atrial fibrillation: Plan: Chronic issue. Rate controlled on arrival. Follows with [facility] - Cardiology Continue metoprolol -Continue Xarelto (4) Dyslipidemia: Plan: Continue pravastatin 80 mg daily, gemfibrozil 600mg b.i.d. (5) Major depressive disorder: Plan: History noted. Continue home medications (BusPar, Prozac, Cymbalta, Baclofen) (6) (HFpEF) heart failure with preserved ejection fraction: Plan: Follows with [facility], last visit 04/2021 Per most recent note: "Echo 11/13/2016: Normal LV size with probable low- normal systolic function. Estimated EF 50-55%. No definite regional wall motion abnormalities, however cannot exclude. Mild LVH. Moderate left atrial dilation. Valve not well visualized, but no significant abnormalities seen. Atrial flutter, rate controlled." Previous cardiac catheterization (within the last 10 years, exact date unknown) was negative for significant CAD. Continue metoprolol, antilipid therapies, lisinopril; no longer on diuresis (7) Hypothyroidism: Plan: Continue levothyroxine TSH noted to be mildly elevated on arrival in the setting of acute illness; consider recheck as outpatient Plan: Code: Full code Diet: HH, CC PPX: Xarelto will be continued Dispo: MS/T History of Present Illness Primary Care Provider: Camille Bhandari MD This is a 61-year-old male with a history of paroxysmal atrial fibrillation, HFpEF, type 2 diabetes, hypercholesterolemia, morbid obesity, KRISTIAN, tobacco use who presented to [facility] for evaluation of altered mental status. History is obtained by patient. Patient says that he came to hospital because he has been "forgetful." He tells me that he fell day SPINNER FIXER and hit his head, and has been feeling forgetful since. He said at one point he did recognize he was in his own house, but did know who his dog was. He says that now, he feels like his memory is much better. When asked about if he has changed any of his medications lately, he tells me that he has not taken any of his medications for the 2 days SPINNER FIXER because of the memory issues. He denies any headache, vision changes, weakness, sensory disturbances, chest pain, pal pitations, shortness of breath, nausea, vomiting, diarrhea throughout this time. He denies recent illnesses. He denies any recreational drugs or alcohol. He lives at home alone with his dog, who is very important to him. He had reached out to his 2 neighbors today because of his forgetfulness, who told him to go to the ER. He did initially leave AGAINST MEDICAL ADVICE early this morning. I had called this afternoon and informed him of his MRI results, which showed a new internal capsule infarct. He said he was feeling "off" at that time. I recommended he come back to the ER for further work-up and evaluation, alongside monitoring. He thankfully did represent earlier this evening. He does say his L knee gave out today, which resulted in a fall -- this is unusual for him and has not happened before. He denies any other periods of confusion / amnesia since yesterday. He has resumed taking his medications. In the ER, patient was again found to be hemodynamically stable with normal VS. Afebrile. CBC and BMP largely normal, ABG yesterday demonstrating mild respiratory alkalosis with pH 7.47, PCO2 32, PO2 88, PHCO3 23, previous TSH 5.85, urinalysis with proteinuria/hematuria and trace glucose/ketones. UDS yesterday was negative. Lyme disease testing yesterday negative for antibodies. CT-Head on day SPINNER FIXER: "Multiple old infarcts, similar to prior exam. Several lacunar infarcts are new since prior exam but appear chronic. Age indeterminate 1.4 cm infarct within the posterior limb of the right internal capsule." MRI on day SPINNER FIXER: "1.7 x 0.8 cm acute infarct within the posterior limb of the right internal capsule. No mass effect. No hemorrhage". Allergies Allergy/AdvReac Type Severity Reaction Status Date / Time bee venom protein (honey bee) Allergy Severe Anaphylaxis Verified 07/11/21 21:56 Sulfa (Sulfonamide Allergy Unknown CAN'T Verified 07/11/21 21:56 Antibiotics) REMEMBER Home Medications Medication Instructions Recorded Confirmed Type buspirone 15 mg tablet 15 mg PO BID 05/06/18 07/11/21 History fluoxetine 20 mg capsule (Prozac) 20 mg PO DAILY 05/06/18 07/11/21 History lisinopril 30 mg tablet 30 mg PO DAILY 05/06/18 07/11/21 History metoprolol tartrate 50 mg tablet 50 mg PO BID 05/06/18 07/11/21 History (Lopressor) omeprazole 40 mg capsule,delayed 40 mg PO DAILY 05/06/18 07/11/21 History release gabapentin 600 mg tablet 600 mg PO BID tab 05/15/20 07/11/21 History (Neurontin) rivaroxaban 20 mg tablet (Xarelto) 20 mg PO DAILY tab 05/15/20 07/11/21 History allopurinol 300 mg tablet 300 mg PO DAILY 07/11/21 07/11/21 History aspirin 325 mg tablet 325 mg PO DIRECTED PRN 07/11/21 07/11/21 History baclofen 10 mg tablet 10 mg PO BID PRN 07/11/21 07/11/21 History duloxetine 30 mg capsule,delayed 30 mg PO DAILY 07/11/21 07/11/21 History release duloxetine 60 mg capsule,delayed 60 mg PO DAILY 07/11/21 07/11/21 History release sprinkle epinephrine 0.3 mg/0.3 mL 0.3 mg IM DIRECTED PRN 07/11/21 07/11/21 History injection, auto-injector gemfibrozil 600 mg tablet 600 mg PO BID 07/11/21 07/11/21 History glipizide 10 mg tablet, extended 10 mg PO DAILY 07/11/21 07/11/21 History release 24 hr glipizide 5 mg tablet, extended 5 mg PO DAILY 07/11/21 07/11/21 History release 24 hr hydroxyzine HCl 50 mg tablet 50 mg PO BID PRN 07/11/21 07/11/21 History insulin NPH isoph U-100 human 100 10 unit SUBCUT QPM 07/11/21 07/11/21 History unit/mL (3 mL) subcutaneous pen (Novolin N Flexpen) levothyroxine 125 mcg tablet 125 mcg PO DAILY 07/11/21 07/11/21 History metformin 500 mg tablet,extended 1,000 mg PO BID 07/11/21 07/11/21 History release 24hr pravastatin 80 mg tablet 80 mg PO DAILY 07/11/21 07/11/21 History Past Med/Surg History Medical History Atrial fibrillation Diabetes Social History Smoking Status: Never smoker Tobacco Type: Smokeless Tobacco (Dip or Chew) Preferred Language: Thai Feels Safe at Home: Yes Review of Systems Review of Systems: as per HPI Physical Exam Physical Exam: General: 61-year old M who is alert, oriented, and appears in no acute distress. A&Ox3. HEENT: NCAT. - Eyes - Sclera are white, anicteric, and without injection. - Mouth - MMM, poor dentition - Neck - supple, no appreciable JVD Cardiac: Normal rate and irregular rhythm; S1 and S2 present with no murmurs, rubs, or gallops. Pulmonary: Good respiratory effort with symmetric expansion of the chest. No use of accessory muscles. Lungs were clear to auscultation bilaterally with no crackles or wheezes. Abdominal: Normoactive bowel sounds. Abdomen was soft, nondistended, and non- tender to palpation. Extremities: Upper and lower extremities are warm and well perfused. No peripheral edema in the lower extremities bilaterally Neuro: - Cranial Nerves: CN I, IX, XIII, and X - not assessed. II - PERRL. III/IV/ - EOMs WNL. No nystagmus. V - Facial sensation in tact in all three divisions; jaw opening WNL. VII - Patient is able to smile symmetrically and keep eyes close against resistance. IX - Patient is able to shrug shoulders against resistance. XI - Soft palate raises equally and appropriately while saying "ah." XII - patient is able to stick out tongue and deviate from [id number] appropriately. - Motor: UE - Finger, wrist, elbow, and shoulder strength is 5/5 bilaterally. LE - Hip, knee, and ankle strength is 5/5 bilaterally. - Sensation: UE and LE sensation to light touch is grossly intact bilaterally. Results & Data Results & Data ([facility]) Vital Signs (Past 12 Hours) Vital Signs Temp Pulse Resp BP Pulse Ox 07/12/21 22:55 78 96 07/12/21 22:01 37.1 C 92 H 26 H 126/72 96 Laboratory Results Laboratory Results WBC 10.34 K/uL (4.8-10.8) 07/12/21 22:49 RBC 4.91 M/uL (4.7-6.1) 07/12/21 22:49 Hgb 15.1 g/dL (14.0-18.0) 07/12/21 22:49 Hct 43.7 % (42-52) 07/12/21 22:49 MCV 89.0 fL (80-100) 07/12/21 22:49 MCH 30.8 pg (25-34) 07/12/21 22:49 MCHC 34.6 g/dL (32-36) 07/12/21 22:49 RDW Std Deviation 42.4 fL (36.4-46.3) 07/12/21: RDW Coeff of Marlene 13.1 % (11.5-14.5) 07/12/21 22: Plt Count 196 K/uL (130-400) 07/12/21 22: MPV 9.7 fL (7.4-10.4) 07/12/21: Immature Gran % (Auto) 0.4 % 07/12/21 22:49 Neut % (Auto) 72.6 % 07/12/21 22:49 Lymph % (Auto) 19.1 % 07/12/21 22:49 [place] % (Auto) 6.3 % 07/12/21 22:49 Eos % (Auto) 1.5 % 07/12/21 22:49 Baso % (Auto) 0.1 % 07/12/21:49 Neut # (Auto) 7.50 K/uL (1.4-6.5) H 07/12/21 22:49 Lymph # (Auto) 1.98 K/uL (1.2-3.4) 07/12/21 22:49 [place] # (Auto) 0.65 K/uL (0.11-0.59) H 07/12/21 22:49 Eos # (Auto) 0.16 K/uL (0-0.5) 07/12/21 22:49 Baso # (Auto) 0.01 K/uL (0-0.2) 07/12/21 22:49 Immature Gran # (Auto) 0.04 K/uL (0.00-0.02) H 07/12/21 22:49 Sodium 138 mmol/L (136-145) 07/12/21 22:49 Potassium 4.5 mmol/L (3.5-5.1) D 07/12/21 22:49 Chloride 104 mmol/L (98-107) 05/05/22 22:49 Carbon Dioxide 27 mmol/L (21-32) 07/12/21 22:49 Anion Gap 7 (3-11) 07/12/21 22:49 BUN 17 mg/dl (6-23) 07/12/21 22:49 Creatinine 0.93 mg/dl (0.6-1.4) 07/12/21 22:49 Est Cr Clr Drug Dosing 115.3 ml/min 07/12/21 22:49 Est GFR ( Amer) 103.8 ml/min 07/12/21 22:49 Est GFR (Non-Af Amer) 89.5 ml/min 07/12/21 22:49 BUN/Creatinine Ratio 18.3 (10-20) 07/12/21 22:49 Glucose 285 mg/dl (70-99(Fasting)) H 07/12/21 22:49 Calcium 8.5 mg/dl (8.5-10.1) 07/12/21 22:49 Magnesium 1.9 mg/dl (1.7-2.4) 07/12/21 22:49 Total Bilirubin 0.6 mg/dl (0.2-1.0) 07/12/21 22:49 AST 31 U/L (13-39) 07/12/21 22:49 ALT 25 U/L (7-52) 07/12/21 22:49 Alkaline Phosphatase 75 U/L (34-104) 07/12/21 22:49 Total Creatine Kinase 479 U/L (30-223) H 07/12/21 22:49 Total Protein 6.9 gm/dl (6.0-8.3) 07/12/21 22:49 Albumin 4.0 gm/dl (3.4-5.0) 07/12/21 22:49 Globulin 2.9 gm/dl (2.5-4.0) 07/12/21 22:49 Albumin/Globulin Ratio 1.4 (0.9-2) 07/12/21 22:49 TSH 5.760 uIu/ml (0.300-4.500) H 07/12/21 22:49 Free T4 0.74 ng/dl (0.61-1.60) 07/12/21 22:49 Urine Color Yellow 07/13/21 00:20 Urine Appearance Clear (Clear) 07/13/21 00:20 Urine pH 5.0 (4.5-7.5) 07/13/21 00:20 Ur Specific [place] 1.027 (1.000-1.030) 07/13/21 00:20 Urine Protein 1+ (Negative) H 07/13/21 00:20 Urine Glucose (UA) 3+ (Negative) H 07/13/21 00:20 Urine Ketones Trace (Negative) H 07/13/21 00:20 Urine Blood Trace (Negative) H 07/13/21 00:20 Urine Nitrite Negative (Negative) 07/13/21 00:20 Urine Bilirubin Negative (Negative) 07/13/21 00:20 Urine Urobilinogen Negative (Negative) 07/13/21 00:20 Ur Leukocyte Esterase Negative (Negative) 07/13/21 00:20 Urine WBC (Auto) 0 /hpf (0-5) 07/13/21 00:20 Urine RBC (Auto) 0-4 /hpf (0-4) 07/13/21 00:20 U Hyaline Cast (Auto) 0 /lpf (0-5) 07/13/21 00:20 U Epithel Cells (Auto) 5-10 /lpf (0-5) H 07/13/21 00:20 Urine Bacteria (Auto) Negative (Negative) 07/13/21 00:20 SARS-CoV-2, RNA, NAAT NEGATIVE (NEGATIVE) 07/12/21 22:49 Diagnostic Findings MRI OF THE BRAIN WITHOUT CONTRAST CLINICAL HISTORY: transient altered mental status, h/o multiple TIAs COMPARISON STUDY: MRI of the brain May 31, 2016. Head CT July 11, 2021. TECHNIQUE: Utilizing a 1.5 Ghazal magnet and dedicated coil, multiplanar, multiecho imaging of the brain was performed without IV contrast. FINDINGS: A 1.7 x 0.8 cm focus restricted diffusion within the posterior limb of the right internal capsule is noted. This corresponds to the finding on head CT of July 11, 2021. This represents an acute infarct. There is no mass effect or hemorrhage. No additional acute infarcts are present. Multiple old infarcts are noted, including infarcts within the bilateral occipital lobes and bilateral basal ganglia. There are old infarcts within the brainstem as well. Ventricular system is unremarkable. Basal cisterns are patent. There are no extra axial collections. Flow-voids for the major intracranial vessels are present. No intracranial masses identified on this unenhanced exam. No calvarial lesions are identified. Small left posterior scalp contusion is present. IMPRESSION: 1. 1.7 x 0.8 cm acute infarct within the posterior limb of the right internal capsule. No mass effect. No hemorrhage. 2. Numerous old infarcts, as above. 3. Small left posterior scalp contusion. ACT 112: Negative or not required by law. Electronically signed by: Jason Miles M.D. 07/12/2021 8:42 AM Dictated:07/12/21832 Transcribed: 07/12/21832 Supervising Physician Co-Signing Physician Notes Patient seen and examined, chart reviewed, case discussed with Dr. Kim and I agree with the assessment and plan as above. In brief, patient is a 61yo male with history of PAF on Eliquis, HFpEF, DM, HLP - he ws seen in te ER last night with confusion and forgetfulness. He was to be admitted for AMS workup - MRI, angiography and echocardiogram. Patient left AMA. Upon review of records patient with new IC CVA. Notified by Dr. Kim - patient stated that he has not been feeling well and his leg gave out. Instructed to come to the ER. No additional complaints Exam - afebrile, HD stable, NAD Skin -intact, no rashes/lesions HEENT - NC/AT, PERRL, MMM, Neck supple Heart - +S1/S2, regular, no m/r/g Lungs - CTA Abd - +BS, soft, NT/ND Ext - warm, well perfused Neuro - nonfocal, CN intact, MS 5/5 bilaterally Labs and images reviewed Assessment/Plan -Check CTA head and neck -Check 2D echo -Continue Xarelto -Appreciate Neuro consultation -Remainder as above Resident Activity Tracking Resident Involvement: Resident Care Provided Care Provided: Adult [facility] Medicine
[2021-07-12 23:30] LABS: Albumin Globulin Ratio 1.4 (0.9-2); BUN Creatinine Ratio 18.3 (10-20); Bilirubin,Total 0.6 mg/dl (0.2-1.0); Calcium 8.5 mg/dl (8.5-10.1); Creatinine Clr Calc Pharmacy 115.3 ml/min; Est GFR (African American) 103.8 ml/min; Est GFR (Non-African American) 89.5 ml/min; Globulin 2.9 gm/dl (2.5-4.0); Magnesium 1.9 mg/dl (1.7-2.4); Potassium 4.5 mmol/L (3.5-5.1); Total Protein 6.9 gm/dl (6.0-8.3)
[2021-07-12] MEDS ORDERED: ACETAMINOPHEN 325 MG TAB PO PRN (23:41)
[2021-07-12 23:43] LABS: Thyroid Stimulating Hormone 5.76 uIu/ml (0.300-4.500)
[2021-07-13] MEDS ORDERED: INSULIN ASPART PER UNIT SC STA (00:03)
[2021-07-13 00:18] LABS: T4 Free Thyroxine 0.74 ng/dl (0.61-1.60)
[2021-07-13 00:52] LABS: Appearance Urine Clear (Clear); Bacteria Urine Automated Negative (Negative); Bilirubin Urine Negative (Negative); Blood Urine Trace (Negative); Cast Urine Automated 0 /lpf (0-5); Color Urine Yellow; Glucose Urine UA 3+ (Negative); Ketones Urine Trace (Negative); Leukocyte Esterase Urine Negative (Negative); Nitrite Urine Negative (Negative); Protein Urine 1+ (Negative); RBC Urine Automated 0-4 /hpf (0-4); Specific Gravity Urine 1.027 (1.000-1.030); Urobilinogen Urine Negative (Negative); WBC Urine Automated 0 /hpf (0-5)
--- NOTE | 2021-07-13 01:16 | Billing Data ---
Date of Service July 13, 2021 Coding Level of Care Code 24713 Initial Inpt Care Lvl 2
[2021-07-13] MEDS ORDERED: GLUCOSE 10 TABS/TUBE PO PRN (01:56)
[2021-07-13] MEDS ORDERED: DEXTROSE 50% 50 ML SYRINGE IV PRN (01:56)
[2021-07-13] MEDS ORDERED: BACLOFEN 10 MG TAB PO PRN (01:56)
[2021-07-13] MEDS ORDERED: EPINEPHrine ADULT AUTO-INJECT 0.3 MG SYR IM PRN (01:56)
[2021-07-13] MEDS ORDERED: hydrOXYzine HCl 25 MG TAB PO PRN (01:56)
[2021-07-13] MEDS ORDERED: ASPIRIN 325 MG ECTAB PO PRN (01:56)
[2021-07-13] MEDS ORDERED: CARBOHYDRATES FOR HYPOGLYCEMIA PO PRN (01:56)
[2021-07-13] MEDS ORDERED: GLUCOSE 40% GEL 15 GM TUBE PO PRN (01:56)
[2021-07-13] MEDS ORDERED: GLUCAGON FOR INJ 1 MG VIAL SQ PRN (01:56)
[2021-07-13] MEDS ORDERED: OPTIRAY 320 125ml IV ONE (04:48)
[2021-07-13] MEDS: INSULIN ASPART PER UNIT SC SCH ×3 (05:01→12:55)
[2021-07-13] MEDS ORDERED: LEVOTHYROXINE SODIUM 125 MCG TABLET PO SCH (06:30)
[2021-07-13 07:04] LABS: BUN Creatinine Ratio 16.3 (10-20); Calcium 8.2 mg/dl (8.5-10.1); Chol HDL Ratio 5.3 (0-5); Creatinine Clr Calc Pharmacy 123.5 ml/min; Est GFR (Non-African American) 94.9 ml/min; Potassium 3.8 mmol/L (3.5-5.1)
[2021-07-13 07:12] LABS: Estimated Average Glucose 214 mg/dl; Hemoglobin A1C 9.1 % (4.5-5.6)
--- NOTE | 2021-07-13 07:23 | CT Scan Report ---
HEAD & NECK CTA HISTORY: Altered mental status. acute infarct on MRI; h/o multiple TIAs TECHNIQUE: Multiaxial CT images of the head were performed following the intravenous administration o f contrast to evaluate the major cerebral vessels. Multiaxial CT images of the neck were also perform ed following the intravenous administration of contrast to evaluate the major cervical vessels. Maxim um intensity projection images were also obtained. A dose lowering technique was utilized adhering to the principles of ALARA. COMPARISON: Brain MRI 07/12/2021. FINDINGS: Acute infarct again noted within the posterior limb of the right internal capsule. Heavily calcified distal vertebral arteries and bilateral carotid siphons. This results in mild to moderate multifocal narrowing. There is also mild to moderate multifocal narrowing within the bilateral plug shaper hand. The bilater al MCAs and ACAs show no significant stenosis, occlusion, or aneurysm. The major dural venous sinuses are patent. Additional old infarcts are again noted. The aortic arch and proximal great vessels are widely patent. Moderate to severe calcified plaque w ithin the bilateral carotid bifurcations. This results in approximately 50% stenosis at the distal ri ght common carotid artery and takeoff of the right internal carotid artery. There is also 50% stenosi s at the takeoff of the left internal carotid artery. The mid to distal bilateral cervical internal c arotid arteries are patent. Approximately 70% stenosis at the takeoff the right vertebral artery due to the calcified plaque. The remaining bilateral vertebral arteries are widely patent. IMPRESSION: 1. Redemonstration of the acute infarct within the posterior limb of the right internal capsule. 2. Multifocal narrowing within the intracranial internal carotid arteries, distal vertebral arteries, and bilateral plug shaper hand as described above. 3. Moderate to severe calcified plaque within the bilateral carotid bifurcations resulting in up to 5 0% stenosis as described above. 4. Approximately 70% stenosis at the takeoff of the right vertebral artery due to the calcified plaqu e. ACT 112: Negative or not required by law. Electronically signed by: Wiliam Negron M.D. 07/13/2021 7:21 AM
--- NOTE | 2021-07-13 07:23 | CT Scan Report ---
HEAD & NECK CTA HISTORY: Altered mental status. acute infarct on MRI; h/o multiple TIAs TECHNIQUE: Multiaxial CT images of the head were performed following the intravenous administration o f contrast to evaluate the major cerebral vessels. Multiaxial CT images of the neck were also perform ed following the intravenous administration of contrast to evaluate the major cervical vessels. Maxim um intensity projection images were also obtained. A dose lowering technique was utilized adhering to the principles of ALARA. COMPARISON: Brain MRI 07/12/2021. FINDINGS: Acute infarct again noted within the posterior limb of the right internal capsule. Heavily calcified distal vertebral arteries and bilateral carotid siphons. This results in mild to moderate multifocal narrowing. There is also mild to moderate multifocal narrowing within the bilateral inpatient coder. The bilater al MCAs and ACAs show no significant stenosis, occlusion, or aneurysm. The major dural venous sinuses are patent. Additional old infarcts are again noted. The aortic arch and proximal great vessels are widely patent. Moderate to severe calcified plaque w ithin the bilateral carotid bifurcations. This results in approximately 50% stenosis at the distal ri ght common carotid artery and takeoff of the right internal carotid artery. There is also 50% stenosi s at the takeoff of the left internal carotid artery. The mid to distal bilateral cervical internal c arotid arteries are patent. Approximately 70% stenosis at the takeoff the right vertebral artery due to the calcified plaque. The remaining bilateral vertebral arteries are widely patent. IMPRESSION: 1. Redemonstration of the acute infarct within the posterior limb of the right internal capsule. 2. Multifocal narrowing within the intracranial internal carotid arteries, distal vertebral arteries, and bilateral inpatient coder as described above. 3. Moderate to severe calcified plaque within the bilateral carotid bifurcations resulting in up to 5 0% stenosis as described above. 4. Approximately 70% stenosis at the takeoff of the right vertebral artery due to the calcified plaqu e. ACT 112: Negative or not required by law. Electronically signed by: Wiliam Negron M.D. 07/13/2021 7:21 AM
--- NOTE | 2021-07-13 07:24 | XRay Report ---
XR chest 1V portable HISTORY: weakness COMPARISON: Chest 07/11/2021. FINDINGS: The cardiac silhouette remains enlarged. The lungs are clear. No pleural effusions. No pneu mothorax. IMPRESSION: Stable cardiomegaly. ACT 112: Negative or not required by law. Electronically signed by: Wiliam Negron M.D. 07/13/2021 7:22 AM
[2021-07-13] MEDS ORDERED: METOPROLOL TARTRATE 50 MG TAB PO SCH (09:00)
[2021-07-13] MEDS ORDERED: lisinopril 10 MG TAB PO SCH (09:00)
[2021-07-13] MEDS ORDERED: busPIRone 15 MG TAB PO SCH ×2 (09:00)
[2021-07-13] MEDS ORDERED: GABAPENTIN 600 MG TAB PO SCH (09:00)
[2021-07-13] MEDS ORDERED: RIVAROXABAN 20 MG TAB PO SCH (09:00)
[2021-07-13] MEDS ORDERED: gemfibroziL 600 MG TAB PO SCH (09:00)
[2021-07-13] MEDS ORDERED: DULoxetine HCL 60 MG CAP PO SCH (09:00)
[2021-07-13] MEDS ORDERED: PANTOprazole 40 MG TAB PO SCH (09:00)
[2021-07-13] MEDS ORDERED: FLUoxetine HCL 20 MG CAP PO SCH (09:00)
[2021-07-13] MEDS ORDERED: DULoxetine HCL 30 MG CAP PO SCH (09:00)
[2021-07-13] MEDS ORDERED: allopurinoL 300 MG TAB PO SCH (09:00)
[2021-07-13] MEDS ORDERED: PRAVASTATIN SOD 40 MG TAB PO SCH (09:00)
--- NOTE | 2021-07-13 09:48 | Neurology Consultation ---
Date of Consultation July 13, 2021 Assessment & Plan (1) Acute CVA (cerebrovascular accident): Acute right hemispheric subcortical ischemic infarct involving the posterior limb of the right internal capsule. Patient does not have a gross hemiparesis at this time although he does lean off to the right side of the bed and may have an element of left hemineglect. He has multiple chronic infarcts as well, notably within the bilateral occipital lobes and bilateral basal ganglia as well as brainstem. He does not have a gross visual field deficit with confrontation testing. CT angiography of the head and neck did not reveal a focal lesion that would be amenable to more specific intervention. Stroke risk factors for this patient include atrial fibrillation, on anticoagulation, poorly controlled diabetes mellitus, hypertension, dyslipidemia, and chewing tobacco use. Patient Xarelto has been continued. His pravastatin has been continued as well. Given patient's multiple cardiovascular risk factors and multiple chronic ischemic infarcts on imaging I would recommend adding aspirin 81 mg/day to his medication regimen. Follow-up with results of echocardiogram. Permissive hypertension, systolic blood pressure 140 to 160 mmHg appropriate acutely. Chewing tobacco cessation will need to be stressed. Patient will need ongoing follow-up with his PCP for management of his diabetes mellitus, hypertension, and dyslipidemia. I agree that he may have an element of concussion as well related to his recent fall with evidence of a left posterior scalp contusion on recent CT of the head. However, the extent to which his current confusion is related to TBI versus extensive cerebrovascular disease and acute stroke with element of left hemineglect is not entirely clear. Would monitor clinically. I would expect postconcussive symptoms to gradually improve over the next few days. Consultations with PT/OT. History of Present Illness Reason for Consultation: stroke Requesting Physician: Rehan Kim MD Attending Physician: Levi Bautista MD History of Present Illness The patient is a 61-year-old male who had presented to the emergency department on July 11 for further assessment of confusion that had been present for 2 days at that time. He may have had a fall at home and had also been complaining of a posterior headache. He has a past medical history of paroxysmal atrial fibrillation, heart failure, type 2 diabetes mellitus, hypercholesterolemia, morbid obesity, sleep apnea, tobacco use. A CT of the head at that time was negative for hemorrhage or acute process. There was a left posterior scalp contusion as well as evidence of multiple chronic infarcts. The patient decided to leave the hospital AGAINST MEDICAL ADVICE on July 12. It looks like a brain MRI had been completed prior to his departure from the hospital previously and had revealed a 1.7 x 0.8 cm acute infarct within the posterior limb of the right internal capsule as well as numerous old infarcts. He was subsequently contacted by Dr. Kim to return to the hospital for further evaluation and management. The patient is an unreliable historian and is amnestic for the preceding events. He indicates that he would like to go home. He denies headache, vision loss, focal weakness, incoordination, or sensory loss. He does appear to have a subtle element of left hemineglect, leaning off to the right side in bed. Allergies Allergy/AdvReac Type Severity Reaction Status Date / Time bee venom protein (honey bee) Allergy Severe Anaphylaxis Verified 07/11/21 21:56 Sulfa (Sulfonamide Allergy Unknown CAN'T Verified 07/11/21 21:56 Antibiotics) REMEMBER Home Medications Medication Instructions Recorded Confirmed Type buspirone 15 mg tablet 15 mg PO DAILY 05/06/18 07/13/21 History fluoxetine 20 mg capsule (Prozac) 20 mg PO DAILY 05/06/18 07/13/21 History lisinopril 30 mg tablet 30 mg PO DAILY 05/06/18 07/13/21 History metoprolol tartrate 50 mg tablet 50 mg PO BID 05/06/18 07/13/21 History (Lopressor) omeprazole 40 mg capsule,delayed 40 mg PO DAILY 05/06/18 07/13/21 History release gabapentin 600 mg tablet 600 mg PO BID tab 05/15/20 07/13/21 History (Neurontin) rivaroxaban 20 mg tablet (Xarelto) 20 mg PO DAILY tab 05/15/20 07/13/21 History allopurinol 300 mg tablet 300 mg PO DAILY 07/11/21 07/13/21 History baclofen 10 mg tablet 10 mg PO BID PRN 07/11/21 07/13/21 History duloxetine 30 mg capsule,delayed 30 mg PO DAILY 07/11/21 07/13/21 History release duloxetine 60 mg capsule,delayed 60 mg PO DAILY 07/11/21 07/13/21 History release sprinkle epinephrine 0.3 mg/0.3 mL 0.3 mg IM DIRECTED PRN 07/11/21 07/13/21 History injection, auto-injector gemfibrozil 600 mg tablet 600 mg PO BID 07/11/21 07/13/21 History glipizide 10 mg tablet, extended 10 mg PO DAILY 07/11/21 07/13/21 History release 24 hr glipizide 5 mg tablet, extended 5 mg PO DAILY 07/11/21 07/13/21 History release 24 hr hydroxyzine HCl 50 mg tablet 50 mg PO BID PRN 07/11/21 07/13/21 History insulin NPH isoph U-100 human 100 10 unit SUBCUT 1700 07/11/21 07/13/21 History unit/mL (3 mL) subcutaneous pen (Novolin N Flexpen) levothyroxine 125 mcg tablet 125 mcg PO DAILY 07/11/21 07/13/21 History metformin 500 mg tablet,extended 1,000 mg PO BIDM 07/11/21 07/13/21 History release 24hr pravastatin 80 mg tablet 80 mg PO DAILY 07/11/21 07/13/21 History Patient History Medical History Atrial fibrillation Diabetes Social History Smoking Status: Never smoker Tobacco Type: Smokeless Tobacco (Dip or Chew) Preferred Language: Croatian Communication Ability: Effective Instructor Hairspring Required: No Beliefs That Will Affect Care: None Feels Safe at Home: Yes Review of Systems Review of Systems: Unobtainable due to cognitive status Exam (Neuro) Constitutional: well developed and well nourished; no acute distress Eyes: normal visual curran by confrontation, PERRL, normal accommodation and EOM intact bilaterally; no fundoscopic abnormality, no nystagmus and no papilledema Cardiovascular: Vessels: normal carotid upstroke; no carotid bruit Neurologic: Oriented to:: Person, Place and Time Memory: Remote Intact; negative Short Term Intact Attention: Span Intact; negative Concentration Intact Language: Naming Objects and Repeating Phrases Speech Fluency: negative Dysarthria Speech Aphasia: negative Aphasia Fund of Knowledge: Past History and Vocabulary; negative Current Events Cranial Nerves: Normal II (Visual curran full to confrontation, visual acuity normal), III, IV, (Pupils equal round reactive to light and accommodation, eye movements normal), V (Facial sensation intact), VII (There is no facial droop or weakness), VIII (Hearing intact), IX, X (Palate elevates to midline), XI (Shoulder shrug intact) and XII (Tongue protrudes to midline) Motor Strength: Normal Lower Extremities and Normal Upper Extremities; negative Pronator Drift Motor Tone: Normal Lower Extremities and Normal Upper Extremities Muscle Bulk/Involuntary Movements: No Involuntary Movements; negative Muscle Atrophy Sensation: Light Touch Intact, Pain/Temperature Intact, Vibration Intact and Proprioception Intact Coordination: Normal, Finger-Nose Abnormal Laterality: Left and Heel- Ma Abnormal Laterality: Left; negative Dysdiadochokinesia Deep Tendon Reflexes: Rt Triceps: 1+, Lt Triceps: 1+, Rt Biceps: 1+, Lt Biceps: 1+, Rt Brachioradialis: 1+, Lt Brachioradialis: 1+, Rt Patellar: 1+, Lt Patellar: 1+, Rt Ankle: 0 and Lt Ankle: 0 Special Tests: negative Babinski Present Details: Gait cannot be tested in the context of patient's current neurological status. Results & Data ([facility]) Vital Signs (Past 12 Hours) Vital Signs Temp Pulse Pulse Pulse Resp BP BP 07/13/21 08:00 36.5 C 86 18 142/98 H 07/13/21 07:50 83 07/13/21 04:53 36.9 C 92 H 18 07/13/21 02:59 37 C 89 18 07/13/21 02:24 78 07/13/21 01:00 37.1 C 75 16 07/13/21 00:00 75 18 07/12/21 23:00 37 C 18 07/12/21 22:55 78 07/12/21 22:01 37.1 C 92 H 26 H 126/72 BP Pulse Ox 07/13/21 08:00 94 07/13/21 07:50 07/13/21 04:53 123/81 92 07/13/21 02:59 152/87 H 99 07/13/21 02:24 07/13/21 01:00 123/71 96 07/13/21 00:00 126/74 96 07/12/21 23:00 126/72 97 07/12/21 22:55 96 07/12/21 22:01 96 Laboratory Results WBC 10.34, hemoglobin 15.1, hematocrit 43.7, MCV 89.0, platelet count 196, sodium 138, potassium 3.8, BUN 14, creatinine 0.86, glucose 263, hemoglobin A1c 9.1, magnesium 1.9, AST 31, ALT 25, total CK4 79, triglycerides 185, cholesterol 170, LDL 101, VLDL 37, HDL 32, TSH 5.760, free T4 0.74. Diagnostic Findings Brain MRI completed July 12, 2021 revealed a 1.7 x 0.8 cm focus of restricted diffusion within the posterior limb of the right internal capsule consistent with an acute infarct. No mass-effect or hemorrhage. Multiple old infarcts noted within the bilateral occipital lobes, bilateral basal ganglia, and brainstem. I reviewed the images as well as the radiologist interpretation of this test and was able to appreciate the above findings. A CTA of the head and neck revealed multifocal narrowing within the intracranial internal carotid arteries, distal vertebral arteries, and bilateral ivf embryologist. There was moderate to severe calcified plaque within the bilateral carotid bifurcations resulting in up to 50% stenosis. There was an approximate 70% stenosis at the takeoff of the right vertebral artery due to calcified plaque. Electrocardiogram revealed atrial fibrillation, right bundle branch block, left anterior fascicular block, 86 bpm. Coding Level of Care Code 78872 Initial Inpt Care Lvl 3 Diagnoses Acute CVA (cerebrovascular accident) I63.9
--- NOTE | 2021-07-13 17:57 | XCELERA ---
[id number]
--- NOTE | 2021-07-13 19:29 | Discharge Summary ---
Date of Service July 13, 2021 Admission HPI Per Admitting Provider This is a 61-year-old male with a history of paroxysmal atrial fibrillation, HFpEF, type 2 diabetes, hypercholesterolemia, morbid obesity, KRISTIAN, tobacco use who presented to [facility] for evaluation of altered mental status. History is obtained by patient. 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 He said at one point he did recognize he was in his own house, but did know who his dog was. He says that now, he feels like his memory is much better. 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 He denies any headache, vision changes, weakness, sensory disturbances, chest pain, palpitations, shortness of breath, nausea, vomiting, diarrhea throughout this time. He denies recent illnesses. He denies any recreational drugs or alcohol. He lives at home alone with his dog, who is very important to him. He had reached out to his 2 neighbors today because of his forgetfulness, who told him to go to the ER. e did initially leave AGAINST MEDICAL ADVICE early this morning. I had called this afternoon and informed him of his MRI results, which showed a new internal capsule infarct. He said he was feeling "off" at that time. I recommended he come back to the ER for further work-up and evaluation, alongside monitoring. He thankfully did represent earlier this evening. He does say his L knee gave out today, which resulted in a fall -- this is unusual for him and has not happened before. He denies any other periods of confusion / amnesia since yesterday. He has resumed taking his medications. In the ER, patient was again found to be hemodynamically stable with normal VS. Afebrile. CBC and BMP largely normal, ABG yesterday demonstrating mild respiratory alkalosis with pH 7.47, PCO2 32, PO2 88, PHCO3 23, previous TSH 5.85, urinalysis with proteinuria/hematuria and trace glucose/ketones. UDS yesterday was negative. Lyme disease testing yesterday negative for antibodies. CT-Head on day SKIN INSTALLER: "Multiple old infarcts, similar to prior exam. Several lacunar infarcts are new since prior exam but appear chronic. Age indeterminate 1.4 cm infarct within the posterior limb of the right internal capsule." MRI on day SKIN INSTALLER: "1.7 x 0.8 cm acute infarct within the posterior limb of the right internal capsule. No mass effect. No hemorrhage". MRI of the brain showed: IMPRESSION: 1. 1.7 x 0.8 cm acute infarct within the posterior limb of the right internal capsule. No mass effect. No hemorrhage. 2. Numerous old infarcts, as above. 3. Small left posterior scalp contusion. CTA of the neck and the head showed IMPRESSION: 1. Redemonstration of the acute infarct within the posterior limb of the right internal capsule. 2. Multifocal narrowing within the intracranial internal carotid arteries, distal vertebral arteries, and bilateral brand coordinator as described above. 3. Moderate to severe calcified plaque within the bilateral carotid bifurcations resulting in up to 50% stenosis as described above. 4. Approximately 70% stenosis at the takeoff of the right vertebral artery due to the calcified plaque. Lab work-up was significant for LDL of 100 , A1c of 9.1, His EKG showed atrial fibrillation, patient has not been taking his medication properly Consulted by neurology and the following the recommendation: Given patient's multiple cardiovascular risk factors and multiple chronic ischemic infarcts on imaging I would recommend adding aspirin 81 mg/day to his medication regimen. Follow-up with results of echocardiogram. Permissive hypertension, systolic blood pressure 140 to 160 mmHg appropriate acutely. Chewing tobacco cessation will need to be stressed. Patient will need ongoing follow-up with his PCP for management of his diabetes mellitus, hypertension, and dyslipidemia. Unfortunately patient signed AGAINST MEDICAL ADVICE stating that he worries about his dogs that it is more important that his current medical issues, I informed him that early discharge from hospital may result in her disability and even her deaths, however he was adamant that he wants to go and take care of his dogs. I talked to his friend/girlfriend and ask her to convince him to stay however it was futile patient left AGAINST MEDICAL ADVICE Principal Diagnosis Ischemic strokeVersus embolic is Discharge Exam General: 61-year old M who is alert, oriented, and appears in no acute distress. A&Ox3. HEENT: NCAT. - Eyes - Sclera are white, anicteric, and without injection. - Mouth - MMM, poor dentition - Neck - supple, no appreciable JVD Cardiac: Normal rate and irregular rhythm; S1 and S2 present with no murmurs, rubs, or gallops. Pulmonary: Good respiratory effort with symmetric expansion of the chest. No use of accessory muscles. Lungs were clear to auscultation bilaterally with no crackles or wheezes. Abdominal: Normoactive bowel sounds. Abdomen was soft, nondistended, and non- tender to palpation. Extremities: Upper and lower extremities are warm and well perfused. No peripheral edema in the lower extremities bilaterally Neuro: - Cranial Nerves: CN I, IX, XIII, and X - not assessed. II - PERRL. III/IV/ - EOMs WNL. No nystagmus. V - Facial sensation in tact in all three divisions; jaw opening WNL. VII - Patient is able to smile symmetrically and keep eyes close against resistance. IX - Patient is able to shrug shoulders against resistance. XI - Soft palate raises equally and appropriately while saying "ah." XII - patient is able to stick out tongue and deviate from [id number] appropriately. - Motor: UE - Finger, wrist, elbow, and shoulder strength is 5/5 bilaterally. LE - Hip, knee, and ankle strength is 5/5 bilaterally. - Sensation: UE and LE sensation to light touch is grossly intact bilaterally. Constitutional well developed and well nourished; no acute distress Eyes normal visual curran by confrontation, PERRL, normal accommodation and EOM intact bilaterally; no fundoscopic abnormality, no nystagmus and no papilledema Cardiovascular Vessels: normal carotid upstroke; no carotid bruit Discharge Data Allergies Allergy/AdvReac Type Severity Reaction Status Date / Time bee venom protein (honey bee) Allergy Severe Anaphylaxis Verified 07/11/21 21:56 Sulfa (Sulfonamide Allergy Unknown CAN'T Verified 07/11/21 21:56 Antibiotics) REMEMBER Consultations 07/12/21 23:07 ED Decision to Admit Stat 07/12/21 23:41 Consult Neurology Routine Ordered Studies 07/12/21 23:49 CT angio head w con Urgent CT angio neck with con Urgent Hospital Course (1) Acute CVA (cerebrovascular accident): This is a 61-year-old male with a history of paroxysmal atrial fibrilla tion, HFpEF, type 2 diabetes, hypercholesterolemia, morbid obesity, KRISTIAN, tobacco use who presented to [facility] for evaluation of altered mental status. 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 Several lacunar infarcts are new since prior exam but appear chronic. Age indeterminate 1.4 cm infarct within the posterior limb of the right internal capsule." MRI (07/11): "1.7 x 0.8 cm acute infarct within the posterior limb of the right internal capsule. No mass effect. No hemorrhage". ABCD2 score: 2 (duration 30 min, h/o T2DM) Etiology likely multifactorial. TIA in the R internal capsule noted on imaging . 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 Medication withdrawal (e.g., Cymbalta/Prozac/BuSpar) may have also contributed. Check CTA-H/N given extensive h/o old infarcts on brain imaging Resume home medications as prescribed Check TTE Check A1c, lipids, B12 PT, OT evaluations greatly appreciated Neurochecks q4 Consult Neurology: appreciate diagnostic expertise and ?need for other therapies (e.g., single antiplatelet - but he is on Xarelto) given extensive h/o TIAs seen on imaging Noted that patient is on anticoagulation (2) Type 2 diabetes mellitus: A1c noted at 8.1% in 06/2021 per [facility] records Hold home medications: Metformin, glipizide, insulin NPH Initiate ACHS glucose checks with sliding scale (CF: 1:30) Carb consistent diet, can consider adding carb ratio if needed (3) Atrial fibrillation: Chronic issue. Rate controlled on arrival. Follows with [facility] - Cardiology Continue metoprolol -Continue Xarelto (4) Dyslipidemia: Continue pravastatin 80 mg daily, gemfibrozil 600mg b.i.d. (5) Major depressive disorder: History noted. Continue home medications (BusPar, Prozac, Cymbalta, Baclofen) (6) (HFpEF) heart failure with preserved ejection fraction: [place] [facility] [place], last visit 04/2021 Per most recent note: "Echo 11/13/2016: Normal LV size with probable low- normal systolic function. Estimated EF 50-55%. No definite regional wall motion abnormalities, however cannot exclude. Mild LVH. Moderate left atrial dilation. Valve not well visualized, but no significant abnormalities seen. Atrial flutter, rate controlled." Previous cardiac catheterization (within the last 10 years, exact date unknown) was negative for significant CAD. Continue metoprolol, antilipid therapies, lisinopril; no longer on diuresis (7) Hypothyroidism: Continue levothyroxine TSH noted to be mildly elevated on arrival in the setting of acute illness; consider recheck as outpatient Code: Full code Diet: HH, CC PPX: Xarelto will be continued Dispo: MS/T Total Time Total Time Spent Total Time Spent (In Minutes): 45 min Discharge Plan Discharge Items Patient Disposition: Against Medical Advice Reason For Visit: TIA Activity: Resume your previous activity Non-emergency contact: Neurologist Follow-up/Referrals: Camille Bhandari MD [Primary Care Provider] - Pending Studies at Discharge: Yes Medications and DC Order Prescriptions: Continued omeprazole 40 mg capsule,delayed release(DR/EC) 40 mg PO DAILY RF: 0 metoprolol tartrate [Lopressor] 50 mg tablet 50 mg PO BID RF: 0 buspirone 15 mg tablet 15 mg PO DAILY RF: 0 lisinopril 30 mg tablet 30 mg PO DAILY RF: 0 fluoxetine [Prozac] 20 mg capsule 20 mg PO DAILY RF: 0 gabapentin [Neurontin] 600 mg tablet 600 mg PO BID RF: 0 Xarelto 20 mg tablet 20 mg PO DAILY RF: 0 hydroxyzine HCl 50 mg tablet 50 mg PO BID PRN (Reason: Anxiety) RF: 0 pravastatin 80 mg tablet 80 mg PO DAILY RF: 0 baclofen 10 mg tablet 10 mg PO BID PRN (Reason: MUSCLE SPASMS) RF: 0 levothyroxine 125 mcg tablet 125 mcg PO DAILY RF: 0 allopurinol 300 mg tablet 300 mg PO DAILY RF: 0 epinephrine 0.3 mg/0.3 mL auto-injector 0.3 mg IM DIRECTED PRN (Reason: Allergic Reaction) RF: 0 Novolin N Flexpen 100 unit/mL (3 mL) insulin pen 10 unit SUBCUT 1700 RF: 0 duloxetine 30 mg capsule,delayed release(DR/EC) 30 mg PO DAILY RF: 0 glipizide 10 mg Tablet Extended Release 24hr 10 mg PO DAILY RF: 0 glipizide 5 mg Tablet Extended Release 24 Hr 5 mg PO DAILY RF: 0 gemfibrozil 600 mg Tablet 600 mg PO BID RF: 0 metformin 500 mg Tablet Extended Release 24hr 1,000 mg PO BIDM RF: 0 duloxetine 60 mg Capsule, Delayed Rel Sprinkle 60 mg PO DAILY RF: 0 Discharge Orders: Left Against Medical Advice (Routine); Ordered 07/13/21 Ordered By: Levi Bautista Admission Data Admit Date/Time: 07/13/21 00:26 Attending Provider: Levi Bautista Admit Provider: Rehan Kim Primary Care Provider: Camille Bhandari Other Providers: Nica Fong ; Kamran Samaniego ; Luis Rollins ; Edel Mccabe ; Jessica Wren ; Brielle Webb Coding Level of Care Code 38483 OBS Care - Discharge Diagnoses Acute CVA (cerebrovascular accident) I63.9 Type 2 diabetes mellitus E11.9 Atrial fibrillation I48.91 Dyslipidemia E78.5 Major depressive disorder F32.9 (HFpEF) heart failure with preserved ejection fraction I50.30 Hypothyroidism E03.9
--- NOTE | 2021-07-14 07:33 | Electrocardiogram Report ---
Test Reason : Blood Pressure : / mmHG Vent. Rate : 086 BPM Atrial Rate : 101 BPM P-R Int : 000 ms QRS Dur : 138 ms QT Int : 430 ms P-R-T Axes : 000 -66 048 degrees QTc Int : 514 ms Atrial fibrillation Right bundle branch block Left anterior fascicular block Bifascicular block Abnormal ECG When compared with ECG of 11-JUL-2021 20:55, No significant change was found Confirmed by Bradley Montenegro ([id number]) on 07/14/2021 7:33:11 AM Referred By: REFERRED SELF Confirmed By:Bradley Montenegro
== END 2021-07-13 15:00 | disposition left against medical advice (07) ==
LOC: ED 21:52 → 2W 23:41 → SUATTDRO 23:41 → INTOOBSV 07-13 00:26 → 2W 07-13 01:36

== ENCOUNTER 2024-01-14 17:57 | Inpatient (IN) ==
[2024-01-14 18:27] LABS: iSTAT Creatinine 0.8 mg/dl (0.6-1.3); iSTAT Ionized Calcium 1.09 mmol/l (1.12-1.32); iSTAT Potassium 4.2 mmol/L (3.3-5.0)
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
[2024-01-14 18:35] LABS: Basophils # (auto) 0.04 K/uL (0.00-0.20); Basophils % (auto) 0.3 %; Eosinophils # (auto) 0.17 K/uL (0.00-0.50); Eosinophils % (auto) 1.4 %; Hematocrit (blood only) 48.1 % (42.0-52.0); Hemoglobin 16.8 g/dl (14.0-18.0); Immature Granulocytes # (auto) 0.06 K/uL (0.01-0.20); Immature Granulocytes % (auto) 0.5 %; Lymphocytes # (auto) 2.66 K/uL (1.20-3.40); Lymphocytes % (auto) 21.2 %; Mean Corpuscular Hemoglobin 30.7 pg (25.0-34.0); Mean Corpuscular Hgb Conc 34.9 g/dL (32.0-36.0); Mean Corpuscular Volume 87.8 fL (80.0-100.0); Mean Platelet Volume 9.5 fL (9.4-12.4); Monocytes % (auto) 5.6 %; Neutrophils # (auto) 8.91 K/uL (1.40-6.50); Platelet Count 219 K/uL (130-400); RDW Coefficient of Variation 12.5 % (11.5-14.5); RDW Standard Deviation 39.8 fL (36.4-46.3); Red Blood Count 5.48 M/uL (4.70-6.10); White Blood Count 12.54 K/ul (4.8-10.8)
[2024-01-14] MEDS: LORazepam 1 MG/1 ML SYR ED Inj Use IV STA (18:45)
[2024-01-14 18:48] LABS: Appearance Urine Clear (Clear); Bacteria Urine Automated None Seen (None Seen); Bilirubin Urine Negative (Negative); Blood Urine Negative (Negative); Cast Urine Automated 0-2 /lpf (0-2); Color Urine Yellow; Epithelial Cell Urine Auto 0-2 /hpf (0-2); Glucose Urine UA Negative (Negative); Ketones Urine Negative (Negative); Leukocyte Esterase Urine Trace (Negative); Nitrite Urine Negative (Negative); Protein Urine 2+ (Negative); RBC Urine Automated 0-2 /hpf (0-2); Specific Gravity Urine 1.018 (1.000-1.030); Urobilinogen Urine Negative (Negative); WBC Urine Automated 0-5 /hpf (0-5); pH Urine >= 9.0 (4.5-7.5)
[2024-01-14] MEDS: OPTIRAY 320 125ml IV ONE (19:06)
[2024-01-14 19:10] LABS: INR 1.1 (0.9-1.1); Partial Thromboplastin Ratio 1.1; Partial Thromboplastin Time 29 Seconds (21-31); Prothrombin Time 11.9 Seconds (9.0-12.0)
[2024-01-14 19:25] LABS: Albumin Level 4.5 gm/dl (3.4-5.0); Calcium 9.7 mg/dl (8.6-10.3); Magnesium 1.1 mg/dl (1.7-2.4)
[2024-01-14 19:31] LABS: Albumin Globulin Ratio 1.4 (0.9-2); BUN Creatinine Ratio 12.5 (10-20); Creatinine Clr Calc Pharmacy 104.7 ml/min; Globulin 3.2 gm/dl (2.5-4.0); Total Protein 7.7 gm/dl (6.0-8.3)
[2024-01-14] MEDS: MAGNESIUM SULFATE / D5W 1 GM/100 ML BAG IV SCH ×2 (20:07→22:28)
--- NOTE | 2024-01-14 21:02 | CT Scan Report ---
Exam(s): CTA NECK With Contrast IV Amt: 116 ml optiray 320 EXAM: CT Angiography Neck With Intravenous Contrast CLINICAL HISTORY: Reason for exam: neuro deficit, acute stroke suspected. TECHNIQUE: Routine carotid CT angiography protocol was performed with intravenous contrast. NASCET criteria using the distal ICAs for comparison were used for evaluation of stenoses. CTDI is 19.61 mGy and DLP is 716.5 mGy-cm. Automated exposure control was utilized for the study. A dose lowering technique was utilized adhering to the principles of ALARA. MIP reconstructed images were created and reviewed. CONTRAST: Patient received 116 ml optiray 320 of IV contrast COMPARISON: CTA neck on 07/13/2021 FINDINGS: VASCULATURE: Right common carotid artery: Unremarkable. No occlusion or significant stenosis. No dissection. Right internal carotid artery: Atherosclerotic changes of the right carotid bulb and proximal right ICA, causing approximately 50-70% stenosis. No dissection. Right external carotid artery: Unremarkable. No occlusion. Right vertebral artery: Unremarkable. No occlusion or significant stenosis. No dissection. Left common carotid artery: Unremarkable. No occlusion or significant stenosis. No dissection. Left internal carotid artery: Atherosclerotic changes in the left carotid bulb and proximal left ICA, causing approximately 30-50% stenosis. No dissection. Left external carotid artery: Unremarkable. No occlusion. Left vertebral artery: Unremarkable. No occlusion or significant stenosis. No dissection. Aorta: Mild atherosclerotic calcification in aortic arch and origins of the great vessels. NECK: Bones/joints: Unremarkable. No acute fracture. Soft tissues: Unremarkable. Lung apices: Clear. CAROTID STENOSIS REFERENCE USING NASCET CRITERIA: % ICA stenosis = (1 - narrowest ICA diameter/diameter of distal cervical ICA) x 100. Mild - <50% stenosis. Moderate - 50-69% stenosis. Severe - 70-94% stenosis. Near occlusion - 95-99% stenosis. Occluded - 100% stenosis. IMPRESSION: 1. Atherosclerotic changes of the right carotid bulb and proximal right ICA, causing approximately 50-70% stenosis. 2. Atherosclerotic changes in the left carotid bulb and proximal left ICA, causing approximately 30-50% stenosis. Electronically signed by: Lon Campos M.D. 01/14/24 19:53 PM
--- NOTE | 2024-01-14 21:02 | CT Scan Report ---
Exam(s): CTA HEAD With Contrast IV Amt: 116 ml optiray 320 EXAM: CT Angiography Head With Intravenous Contrast CLINICAL HISTORY: Reason for exam: neuro deficit, acute stroke suspected. TECHNIQUE: Axial computed tomographic angiography images of the head with intravenous contrast. CTDI is 82.91 mGy and DLP is 961.59 mGy-cm. Automated exposure control was utilized for the study. A dose lowering technique was utilized adhering to the principles of ALARA. MIP reconstructed images were created and reviewed. CONTRAST: Patient received 116 ml optiray 320 of IV contrast COMPARISON: CTA head on 07/13/2021 FINDINGS: Right internal carotid artery: Atherosclerotic calcifications in the distal right ICA, causing mild stenoses. No aneurysm. Right anterior cerebral artery: Unremarkable. No occlusion or significant stenosis. No aneurysm. Right middle cerebral artery: Mild to moderate stenosis in the V4 segment of the right MCA. No aneurysm. Right posterior cerebral artery: Mild to moderate stenosis in the proximal right FOREST ECONOMIST. No aneurysm. Right vertebral artery: Atherosclerotic calcifications of the V4 segment of the right vertebral artery, causing mild stenosis. Left internal carotid artery: Atherosclerotic calcifications of the distal left ICA, causing raxd-ju-vpozezra stenosis. No aneurysm. Left anterior cerebral artery: Unremarkable. No occlusion or significant stenosis. No aneurysm. Left middle cerebral artery: Mild stenoses in the left MCA. No aneurysm. Left posterior cerebral artery: Mild stenoses in the proximal left FOREST ECONOMIST. Severe stenoses or occlusions in the distal left [employer]EST E[employer]OMIST. No aneurysm. Left vertebral artery: Atherosclerotic calcifications of the V4 segment of the left vertebral artery, causing mild/moderate stenosis. Basilar artery: Unremarkable. No occlusion or significant stenosis. No aneurysm. IMPRESSION: 1. Mild stenoses in the proximal left FOREST ECONOMIST. Severe stenoses or occlusions in the distal left FOREST ECONOMIST. 2. Atherosclerotic calcifications of the V4 segments of the vertebral arteries, causing mild/moderate stenosis. 3. Atherosclerotic calcifications of the distal left ICA, causing mild- to-moderate stenosis. 4. Mild to moderate stenosis in the V4 segment of the right MCA. 5. Mild to moderate stenosis in the proximal right [employer]EST ECONOMIST. Electronically signed by: Lon Campos M.D. 01/14/24 20:07 PM
--- NOTE | 2024-01-14 21:02 | CT Scan Report ---
Exam(s): CT HEAD Without Contrast EXAM: CT Head Without Intravenous Contrast CLINICAL HISTORY: Reason for exam: neuro deficit, acute stroke suspected. TECHNIQUE: Axial computed tomography images of the head/brain without intravenous contrast. CTDI is 63.46 mGy and DLP is 961.59 mGy-cm. Automated exposure control was utilized for the study. A dose lowering technique was utilized adhering to the principles of ALARA. COMPARISON: MRI brain on 07/12/2021. CT head on 07/11/2021. FINDINGS: Brain: No acute infarct or hemorrhage identified. No extra-axial fluid collection. No mass effect or midline shift. Scattered areas of hypoattenuation in the supratentorial white matter likely represent chronic small vessel ischemic changes. Encephalomalacia in the posterior right frontal region and bilateral occipital lobes. Small remote lacunar infarcts in the basal ganglia and left thalamus. Small remote infarct in the left cerebellar hemisphere. Probable small calcification in the right cerebellar hemisphere. Ventricles and sulci: Prominence of the ventricles and sulci is likely secondary to cerebral volume loss. Bones: Normal. No bony lesion or acute fracture. Subcutaneous tissues: Normal. Sinuses: Mucosal thickening in the left frontal sinus. Mastoid air cells: Normal. Orbits: Left lens implant. Other: Atherosclerotic calcifications in the intracranial vasculature. IMPRESSION: 1. No acute intracranial abnormality. Further evaluation could be performed with MRI if clinically indicated. 2. Chronic small vessel ischemic changes and cerebral volume loss. Encephalomalacia in the posterior right frontal region and bilateral occipital lobes. Small remote lacunar infarcts in the basal ganglia and left thalamus. Small remote infarct in the left cerebellar hemisphere. Electronically signed by: Lon Campos M.D. 01/14/24 19:48 PM
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
[2024-01-14] MEDS ORDERED: ONDANSETRON INJ 2 MG/ML 2 ML VIAL IV PRN (23:58)
[2024-01-14] MEDS ORDERED: GLUCOSE 40% GEL 15 GM TUBE PO PRN (23:58)
[2024-01-14] MEDS ORDERED: CARBOHYDRATES FOR HYPOGLYCEMIA PO PRN (23:58)
[2024-01-14] MEDS ORDERED: GLUCAGON FOR INJ 1 MG VIAL SQ PRN (23:58)
[2024-01-14] MEDS ORDERED: GLUCOSE 10 TAB/TUBE PO PRN (23:58)
[2024-01-14] MEDS ORDERED: PHARMACIST DISCHARGE MED REC CONSULT PRN (23:58)
[2024-01-14] MEDS ORDERED: DEXTROSE 50% 50 ML SYRINGE IV PRN (23:58)
[2024-01-15] MEDS: LORazepam 0.5 MG TAB SL STA (00:33)
[2024-01-15] MEDS: ALBUT/IPRATROP 3MG/0.5MG NEB 3 ML VIAL NEB PRN (00:50)
[2024-01-15] MEDS: HALOPERIDOL LACTATE 5 MG/ML 1 ML VIAL IM STA (02:12)
[2024-01-15] MEDS ORDERED: OLANZapine 10 MG/2.1 ML SDV IM PRN (03:16)
[2024-01-15] MEDS: NSS + 20MEQ KCL 20 MEQ/1,000 ML BAG IV SCH (04:58)
[2024-01-15] MEDS: NYSTATIN POWDER 15GM BTL EXT PRN (04:59)
[2024-01-15 07:57] LABS: Basophils # (auto) 0.05 K/uL (0.00-0.20); Basophils % (auto) 0.4 %; Eosinophils # (auto) 0.11 K/uL (0.00-0.50); Eosinophils % (auto) 0.9 %; Hematocrit (blood only) 44.2 % (42.0-52.0); Hemoglobin 15.6 g/dl (14.0-18.0); Immature Granulocytes # (auto) 0.06 K/uL (0.01-0.20); Immature Granulocytes % (auto) 0.5 %; Lymphocytes % (auto) 19.6 %; Mean Corpuscular Hemoglobin 30.8 pg (25.0-34.0); Mean Corpuscular Hgb Conc 35.3 g/dL (32.0-36.0); Mean Corpuscular Volume 87.4 fL (80.0-100.0); Mean Platelet Volume 9.3 fL (9.4-12.4); Monocytes # (auto) 0.81 K/uL (0.11-0.59); Monocytes % (auto) 6.4 %; Neutrophils # (auto) 9.22 K/uL (1.40-6.50); Neutrophils % (auto) 72.2 %; Platelet Count 189 K/uL (130-400); RDW Coefficient of Variation 12.4 % (11.5-14.5); RDW Standard Deviation 39.2 fL (36.4-46.3); Red Blood Count 5.06 M/uL (4.70-6.10); White Blood Count 12.75 K/ul (4.8-10.8)
--- OUTSIDE RECORDS SUMMARY | 2024-01-15 07:57 | External Medical Summary | Continuity of Care Document ---
Author Name Unknown Organization [facility] [address] [place] Address [address] [place], [place] [id number] Care Team Providers Care Turning Lathe Tender Name Role Phone Camille Bhandari Primary Care Physician [phone] Encounter [facility] [id number] Date(s): 10/28/23 - 10/28/23 [facility] [address], [address] [place] [address] [phone] Encounter Diagnosis Acute mid back pain(Discharge Diagnosis) - 10/28/23 Fall at home(Discharge Diagnosis) - 10/28/23 Discharge Disposition: Home or Self Care Attending Physician: TG Okeefe Jessica A Allergies, Adverse Reactions, Alerts Substance Criticality Severity Reaction Reaction Severity Status sulfa drugs Active Bee stings Active Assessment and Plan Extracted from: Title:back pain Author:TG Okeefe Jessica A Date:10/28/23 1.Acute mid back pain Meredith developed acutemid/thoracic back painthat started a few days ago after a fall. Pain is uncontrolled and goal is resolution of symptoms. Thoracic x- rays were ordered to further evaluate for any traumatic fracturegivenspinous process tenderness. Also,he may continue to use Tylenol, but advised that he is takingtoo much Tylenol at once [id number]. Recommend using Tylenol 1000 mgevery 6 hours as needed for pain. Also, discussed that gabapentinshould be taken consistentlyto see its full benefit in regards to pain relief. Would recommend starting with taking gabapentin 600 mg twice dailyfor 2 to 3 weeks and if responding well may continue at this dose. If still in pain he may increase to 3 times daily for a few weeksand eventually titrate to 4 times daily as prescribed. Patient agreed. Advised patient to contact the office if pain is not improving after 1 to 2 weeks, worsens or changes. He agreed. 2.Fall at home Injury suffered a recent fall at homeand believes he lost his balance when he attempted tostand from a seated position. He does usea rollator walkerto assist with balance. We did discussreferring for physical therapy to help improve strength and prevent falls, which he adamantly declines. 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 Time spent on pre-visit plannin minutes on chart review Face to face time spent w/ patient: 22 minutes Time spent documenting pertinent clinical information into the EMR: 10 minutes Total time: 34 minutes Immunizations Given and Recorded Vaccine Date Status Refusal Reason pneumococcal 20-valent conjugate vaccine 01/07/22 Given pneumococcal 20-valent conjugate vaccine 05/26/21 Recorded SARS-CoV-2 (COVID-19) mRNA-1273 vaccine 03/07/21 R ecorded SARS-CoV-2 (COVID-19) mRNA-1273 vaccine 07/11/20 R ecorded SARS-CoV-2 (COVID-19) mRNA-1273 vaccine 06/06/20 R ecorded influenza virus vaccine, inactivated 01/01/21 Give n pneumococcal 23-valent vaccine 04/20/13 Recorded tetanus toxoids-diphtheria, Td (Adult) 11/04/97 Re corded Medications allopurinol 300 mg oral tablet Start: 07/16/22 9:08:00 AM EDT, See Instructions, Disp# 90 tab, Refills: 1, Take 1 tablet by mouth once daily, Pharmacy: [id number] Start Date: 07/16/22 Status: Ordered aspirin 81 mg oral delayed release tablet Start: 07/17/21 3:52:00 PM EDT, 1 tab, PO, Daily, Disp# 30 tab, Refills: 6, Pharmacy: [id number] Start Date: 07/17/21 Stop Date: 02/12/22 Status: Ordered B-D UF MINI PENNEEDLMIS Start: 09/08/23 7:11:00 PM EDT, B-D UF MINI PENNEEDLMIS, See Instructions, Disp# 100 each, Refills: 4, USE WITH LANTUS ONCE DAILY DIRECTED, Pharmacy [facility] Start Date: 09/08/23 Status: Ordered baclofen 10 mg oral tablet Start: 07/16/22 9:08:00 AM EDT, See Instructions, Disp# 60 tab, Refills: 3, TAKE ONE TABLET BY MOUTH 2 TIMES A DAY NEEDED FOR PAIN., Pharmacy: [facility] Start Date: 07/16/22 Status: Ordered BACLOFEN 10 MG TABLET Start: 10/07/23 7:38:00 AM EDT, BACLOFEN 10 MG TABLET, 1 tab, PO, bid, Disp# 60 tab, Refills: 4, PRN: NEEDED FOR PAIN, Pharmacy [facility] [id number] Start Date: 10/07/23 Status: Ordered DULoxetine 30 mg oral delayed release capsule Start: 07/16/22 9:08:00 AM EDT, 1 cap, PO, Daily, Disp# 90 cap, Refills: 1, Pharmacy: [facility] Start Date: 07/16/22 Status: Ordered EpiPen 2-Delmar 0.3 mg injectable kit Start: 01/11/21 8:25:00 AM EDT, 0.3 mg =, IM, ONCE, Disp# 1 each, Refills: 1, PRN: as needed for anaphylaxis, Pharmacy: [facility] Start Date: 01/11/21 Status: Ordered gabapentin 600 mg oral tablet Start: 04/02/23 4:34:00 PM EST, 1 tab, PO, qid, Disp# 120 tab, Refills: 3, Pharmacy: [facility] Start Date: 04/02/23 Status: Ordered glipiZIDE 5 mg oral tablet Start: 07/16/22 9:08:00 AM EDT, 1 tab, PO, Daily, Disp# 90 tab, Refills: 3, TAKE 1 TABLET BY MOUTH ONCE DAILY, Pharmacy: [facility] Start Date: 07/16/22 Stop Date: 07/11/23 Status: Ordered hydrOXYzine hydrochloride 50 mg oral tablet Start: 08/19/23 4:56:00 PM EDT, 1 tab, PO, bid, Disp# 60 tab, Refills: 0, PRN: as needed, Pharmacy: [facility] [id number] Start Date: 08/19/23 Status: Ordered levothyroxine 125 mcg (0.125 mg) oral tablet Start: 07/16/22 9:08:00 AM EDT, 1 tab, PO, Daily, Disp# 30 tab, Refills: 6, Pharmacy: [facility] Start Date: 07/16/22 Status: Ordered lisinopril 30 mg oral tablet Start: 09/18/23 7:24:00 PM EDT, 1 tab, PO, Daily, Disp# 90 tab, Refills: 3, Pharmacy: [facility] Start Date: 09/18/23 Status: Ordered MetFORMIN (Eqv-Glucophage XR) 500 mg oral tablet, extended release Start: 08/25/23 7:56:00 AM EDT, 2 tab, PO, bid, Disp# 120 tab, Refills: 1, Pharmacy: [facility] Start Date: 08/25/23 Status: Ordered metoprolol tartrate 50 mg oral tablet Start: 07/16/22 9:08:00 AM EDT, 1 tab, PO, bid, Disp# 180 tab, Refills: 3, Pharmacy: [facility] Start Date: 07/16/22 Status: Ordered omeprazole 40 mg oral delayed release capsule Start: 07/11/23 6:11:00 PM EDT, 1 cap, PO, Daily, Disp# 90 cap, Refills: 0, Pharmacy: [facility] Start Date: 07/11/23 Status: Ordered pravastatin 80 mg oral tablet Start: 07/16/22 9:08:00 AM EDT, 1 tab, PO, Daily, Disp# 90 tab, Refills: 3, Pharmacy: [facility] Start Date: 07/16/22 Status: Ordered ReliOn/NovoLIN N FlexPen 100 units/mL subcutaneous suspension Start: 04/25/23 6:12:00 PM EST, 10 unit =, subQ, Daily, Disp# 15 mL, Refills: 1, Pharmacy: [facility] Start Date: 04/25/23 Status: Ordered Xarelto 20 mg oral tablet Start: 08/06/22 10:45:00 AM EDT, 1 tab, PO, Daily Start Date: 08/06/22 Status: Ordered Mental Status 10/28/23 Barriers to Learning one year None evide nt Mandatory Health Literacy Documentation Yes Health Literacy Communication Barriers N ever Primary Language Italian Problem List Condition Confirmation Course Effective Dates Status Health Status Informant Gait instability Confirmed Active ARTHRITIS Confirmed Active Afib Confirmed Active Back pain Confirmed Active Carotid stenosis, bilateral Confirmed Active Chronic diastolic congestive heart failure Confirmed Active Depression Confirmed Active Diabetes Confirmed Active Disseminated idiopathic skeletal hyperostosis Confirmed Active ESOPHAGEAL REFLUX Confirmed Active Right foot pain Confirmed Active History of urinary incontinence Confirmed Active Hypercholesterolemia Confirmed Active Hypocalcemia Confirmed Active Adult hypothyroidism Confirmed Active Knee pain, bilateral Confirmed Active Low back pain Confirmed Active Has difficulty accessing primary care provider for most visits Confirmed Active Morbid obesity Confirmed Active Neck pain Confirmed Active Neuropathy Confirmed Active Nonischemic congestive cardiomyopathy Confirmed Active Tinea unguium Confirmed Active Right shoulder pain Confirmed Active Sleep apnea Confirmed Active Surgery 1 Confirmed Active Thoracic radiculopathy Confirmed Active Tobacco user Confirmed Active Diabetic neuropathy Confirmed Active Type 2 diabetes, HbA1c goal < 7% Confirmed Active Type 2 diabetes, HbA1c goal < 7% Confirmed Active Unable to demonstrate health literacy Confirmed Active Vertebral artery stenosis Confirmed Active Weight monitoring Confirmed Active 1sinus Diagnosis Diagnosis Type Effective Dates Health Status Cl inical Service Informant Acute mid back pain Discharge Diagnosis 10/28/23 Non-Specified Fall at home Discharge Diagnosis 10/28/23 Non-Specified Procedures Procedure Date Related Diagnosis Body Site Status Magnetic resonance angiogram of brain and neck without contrast 1 07/13/21 Comp leted MRI of brain 2 07/13/21 Completed CAT scan 3 07/12/21 Completed Chest x-ray 4 07/12/21 Completed Herniorrhaphy Completed Sinus Completed 11. redemonstration of the acute infarct within the posterior limb of the right internal capsule. 2. multifocal narrowing within the intracranial internal carotid arteries, distal vertebral arteries, and bilateral animal caregiver 3. moderate to severe calcified plaque within the bilateral carotid bifurcations resulting in up to50% stenosis 4. approximately 70% stenosis at the takeoff of the right vertebral artery due to the calcified plaque 21. 1.7 x 0.8 cm acute infarct within the posterior limb of the right internal capsule. no mass effect. no hemorrhage. 2. 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 small left posterior scalp contusion 31. redemonstration of the acute infract within the posterior limb of the right internal capsule. 2. multifocal narrowing within the intracranial carotid arteries, distal vertebral arteries, and bilateral animal caregiver as described above. 3. moderate to sever calcified plaque within the bilateral carotid bifurcations resulting in up to 50% stenosis as described above. 4. approximately 70% stenosis at the takeoff of the right vertebral artery due to the calcified plaque 4stable cardiomegaly Vital Signs Most recent to oldest [Reference Range]: 1 Patient Weight 131 kg (10/28/23 8:26 AM) Temperature [36.5-37.9 DegC] 36.8 DegC (10/28/23 8:26 AM) Respiratory Rate 80 br/min (10/28/23 8:26 AM) Blood Pressure 128/86mmHg (10/28/23 8:26 AM) Cuff Pulse Pressure 42 mmHg (10/28/23 8:26 AM) BP Location # 1 Left Arm, Manual (10/28/23 8:26 AM) Social History Social History Type Response Tobacco Current every day sm oker, Oral, Ready to change: Yes. 1 Smoking Status Never smoked cigaret tigre Sex Male Sex Representation Male (finding) 12 cans snuff per week [facility] Note * TG Okeefe, Yomaira Woods: PERFORM Event Display: [facility] Note Authored Date: Chief Complaint Back pain. Frequent falls at home History of Present Illness "About a week ago I fell down."Injury lives alone and about a week ago he was attempting to stand upout of his reclinerand fell backwards onto his mid back, landing on his floor. He had wedged himself betweenanother chair in his living room in the recliner and could not get up. He didcall a friend as well as 911 who helpedpick him up off the floor.His body felt generally sorethroat a few days, but then felt well. Then about 3 days ago he developed "severe pain in the middle of my back" at the site of where he hadhit his back upon falling. Pain is at mid back, justdistal to shoulder blades.His pain is fairly constant and rates it at a 108/10. Nothing makes the pain better or worse. Hehe is chronically prescribed gabapentin 600 mg 4 times daily, butin discussion he really only takes thisonce in the evening before bedtime to help with pain and as needed1 additional time throughout the day. He did not realize this was to be taken consistently. He has also been using Tylenol 500 mg, 3 tablets by mouth once to twice daily that does help temporarily.Unable to take NSAIDs as he is chronically anticoagulated with Xarelto foratrial fibrillation. He has chronic ambulatory dysfunction and ambulates with the use of a rollator walker. Also, has chronic peripheral neuropathyin his feetthat he describes as a burning-like pain. No fever, chills, head injury, loss of consciousness,radicular pain, leg pain, leg numbness/tingling, leg weakness, saddle anesthesia, fecal incontinence, urinary incontinence, urinary retention, headache, nausea, vomiting, hematuria, backswelling, discoloration or ecchymosis. Review of Systems ROS:All other systems negative, except HPI. Physical Exam Vitals & Measurements T:36.8C RR:80 BP:128/86 SpO2:94% WT:131.000kg(Dosing) WT:131kg PHQ2 Data(Data Documented on:10/28/2023 08:26) Emotional health assessment NEGATIVE General: Alert and oriented, No acute distress.Pleasant male. Eye: Pupils are equal, round and reactive to light, Extraocular movements are intact, Normal conjunctiva. HENT: Normocephalic. Posterior pharynx is pink. Uvula rises midline. No drooling, stridor or cyanosis. Respiratory: Lungs are clear to auscultation, Respirations are non-labored, Breath sounds are equal, Symmetrical chest wall expansion. Cardiovascular: Normal rate, Regular rhythm, No murmur, No gallop, Good pulses equal in all extremities, Normal peripheral perfusion. No LE edema. Musculoskeletal Normal gait. Ambulates with the use of a rollator walker.FROM and 5/5 strength at BLE and BUE.FROM of thoracic andlumbarspine. +pointtenderness alongdistalthoracic spinous processes. No tenderness over paraspinal muscles, posterior ribs and no CVAtenderness.No tenderness over cervical, upperthoracicor lumbarspinous processes. Integumentary: Warm, [place], No pallor. Neurologic: Alert, Oriented, Cranial Nerves II-XII are grossly intact. Cognition and Speech: Oriented, Speech clear and coherent, Functional cognition intact. Psychiatric: Cooperative, Appropriate mood & affect, Normal judgment, Nonsuicidal. Assessment/Plan 1.Acute mid back pain Meredith developed acutemid/thoracic back painthat started a few days ago after a fall. Pain is uncontrolled and goal is resolution of symptoms. Thoracic x-rays were ordered to further evaluate for any traumatic fracturegivenspinous process tenderness. Also,he may continue to use Tyl enol, but advised that he is takingtoo much Tylenol at once [id number]. Recommend using Tylenol 1000 mgevery 6 hours as needed for pain. Also, discussed that gabapentinshould be takenconsistentlyto see its full benefit in regards to pain relief. Would recommend starting with taking gabapentin 600 mg twice dailyfor 2 to 3 weeks and if responding well may continue at this dose. If still in pain he may increase to 3 times daily for a few weeksand eventually titrate to 4 times daily as prescribed. Patient agreed. Advised patient to contact the office if pain is not improving after 1 to 2 weeks, worsens or changes. He agreed. 2.Fall at home Injury suffered a recent fall at homeand believes he lost his balance when he attempted tostandfrom a seated position. He does usea rollator walkerto assist with balance. We did discussreferring for physical therapy to help improve strength and prevent falls, which he adamantly declines. We did discuss that ifhe continues to have recurrent falls at homeI would recommend discussing/reevaluating use of chronic anticoagulation for A-fibgiven risk of head injury and bleeding,which she could discuss with his tunnel heading inspector. Time spent on pre-visit plannin minutes on chart review Face to face time spent w/ patient: 22 minutes Time spent documenting pertinent clinical information into the EMR: 10 minutes Total time: 34 minutes Problem List/Past Medical History Ongoing Adult hypothyroidism Afib ARTHRITIS Back pain Carotid stenosis, bilateral Chronic diastolic congestive heart failure Depression Diabetes Diabetic neuropathy Disseminated idiopathic skeletal hyperostosis ESOPHAGEAL REFLUX Gait instability Has difficulty accessing primary care provider for most visits History of urinary incontinence Hypercholesterolemia Hypocalcemia Knee pain, bilateral Low back pain Morbid obesity Neck pain Neuropathy Nonischemic congestive cardiomyopathy Right foot pain Right shoulder pain Sleep apnea Surgery Thoracic radiculopathy Tinea unguium Tobacco user Type 2 diabetes, HbA1c goal < 7% Type 2 diabetes, HbA1c goal < 7% Unable to demonstrate health literacy Vertebral artery stenosis Weight monitoring Procedure/Surgical History Magnetic resonance angiogram of brain and neck without contrast| Service Date: 07/13/2021MRI of brain| Service Date: 07/13/2021hest x-ray| Service Date: 07/12/2021AT scan| Service Date:07/12/2021inusHerniorrhaphy Medications allopurinol(allopurinol 300 mg oral tablet), See Instructions, 1 refills aspirin(aspirin 81 mg oral delayed release tablet), 81 mg= 1 tab, PO, Daily, 6 refills baclofen(baclofen 10 mg oral tablet), See Instructions, 3 refills DULoxetine(DULoxetine 30 mg oral delayed release capsule), 30 mg= 1 cap, PO, Daily, 1 refills EPINEPHrine(EpiPen 2-Delmar 0.3 mg injectable kit), 0.3 mg, IM, ONCE, PRN, 1 refills gabapentin(gabapentin 600 mg oral tablet), 1 tab, PO, qid glipiZIDE(glipiZIDE 5 mg oral tablet), 5 mg= 1 tab, PO, Daily, 3 refills hydrOXYzine(hydrOXYzine hydrochloride 50 mg oral tablet), 1 tab, PO, bid, PRN insulin isophane (NPH)(ReliOn/NovoLIN N FlexPen 100 units/mL subcutaneous suspension), 10 unit, subQ, Daily levothyroxine(levothyroxine 125 mcg (0.125 mg) oral tablet), 125 mcg= 1 tab, PO, Daily, 6 refills lisinopril(lisinopril 30 mg oral tablet), 1 tab, PO, Daily metFORMIN(MetFORMIN (Eqv-Glucophage XR) 500 mg oral tablet, extended release), 2 tab, PO, bid metoprolol(metoprolol tartrate 50 mg oral tablet), 50 mg= 1 tab, PO, bid, 3 refills omeprazole(omeprazole 40 mg oral delayed release capsule), 1 cap, PO, Daily pravastatin(pravastatin 80 mg oral tablet), 80 mg= 1 tab, PO, Daily, 3 refills rivaroxaban(Xarelto 20 mg oral tablet), 20 mg= 1 tab, PO, Daily unlisted medication(BACLOFEN 10 MG TABLET), 1 tab, PO, bid, PRN unlisted medication(B-D UF MINI PENNEEDLMIS), See Instructions zoster vaccine, inactivated(Shingrix), 0.5 mL, IM, ONCE Allergies Bee stings sulfa drugs Social History Smoking Status Never smoked cigarettes Alcohol Use:Past Exercise - Does not exercise Tobacco Use:Current every day smoker Type:Oral Ready to change:Yes - Comments: 2 cans snuff per week Family History Heart attack: Father. Malignant tumor of lung: Mother. Health Status Family Member(s) Immunizations Vaccine Date Status pneumococcal 20-valent conjugate vaccine 01/07/2022 Given pneumococcal 20-valent conjugate vaccine 05/26/2021 Recorded SARS-CoV-2 (COVID-19) mRNA-1273 vaccine 03/07/2021 Recorded influenza virus vaccine, inactivated 01/01/2021 Given SARS-CoV-2 (COVID-19) mRNA-1273 vaccine 07/11/2020 Recorded SARS-CoV-2 (COVID-19) mRNA-1273 vaccine 06/06/2020 Recorded pneumococcal 23-valent vaccine 04/20/2013 Recorded tetanus toxoids-diphtheria, Td (Adult) 11/04/1997 Recorded Recommendations Health Maintenance Pending(in the next year) OverDue Body Mass Index due08/07/23and every 366day Adult Influenza Vaccine due09/07/23and every 1year Due Adult COVID-19 Vaccination due10/28/23Unknown Frequency Adult Social Determinants of Health Screening due10/28/23Unknown Frequency Adult Tdap/Td Vaccine due10/28/23Unknown Frequency Colorectal Cancer Screening due10/28/23Unknown Frequency Diabetic Eye Exam due10/28/23Unknown Frequency Hepatitis C Screening due10/28/23One-time only Shingles Vaccine due10/28/23One-time only Due In Future Diabetes Management A1c not due until08/25/24and every 366day Satisfied(in the past 1 year) Satisfied Diabetes Management A1c on08/25/23.Satisfied by Contributor_system, [email or web address] Diabetes Nephropathy Management on08/25/23.Satisfied by Contributor_system, [email or web address] Lipid Screening on08/25/23.Satisfied by Contributor[employer]system, [id number] Patient Care team information Care Team Personnel Name: MD Elisabet, Camille Reyes Position: Physician - Family Med Member Role: Primary Care Provider Address: [address] [place] [id number] [place] Care Team Related Persons Name: KOSTA LIMON
--- OUTSIDE RECORDS SUMMARY | 2024-01-15 07:57 | External Medical Summary | Continuity of Care Document ---
Author Name Unknown Organization 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 [address], [address] [place] [address] [phone] Encounter Diagnosis Type 2 diabetes mellitus with peripheral neuropathy(Discharge Diagnosis) - 08/24/23 Afib(Discharge Diagnosis) - 08/24/23 Type 2 diabetes mellitus with diabetic polyneuropathy(Final) - Hypothyroidism, unspecified(Final) - Chronic diastolic (congestive) heart failure(Final) - Unspecified atrial fibrillation(Final) - Has difficulty accessing primary care provider for most visits(Discharge Diagnosis) - 08/25/23 Carotid stenosis, bilateral(Discharge Diagnosis) - 08/24/23 Sleep apnea(Discharge Diagnosis) - 08/24/23 Adult hypothyroidism(Discharge Diagnosis) - 08/24/23 Morbid obesity(Discharge Diagnosis) - 08/24/23 Chronic diastolic congestive heart failure(Discharge Diagnosis) - 08/24/23 Discharge Disposition: Home or Self Care Attending Physician: MD Bhandari Amy L Allergies, Adverse Reactions, Alerts Substance Criticality Severity Reaction Reaction Severity Status sulfa drugs Active Bee stings Active Assessment and Plan Extracted from: Title:Office Visit Note Author:MD Bhandari Amy L D ate:08/25/23 1.Type 2 diabetes mellitus with peripheral neuropathy Status : chronic, uncontrolled. Data : diet reviewed. Goal : maintain normal blood sugars. Plan : get glucose, A1C, & urine microalbumin. Suspectpoor control,givenhishx& currentdietaryconstraints. Discussed, buthis lowhealthliteracy, aswellaslimitedtransportation &poorsocialsituation, arealllimitinghisability to improvehisdiabeticcontrol. 2.Afib STATUS : chronic, stable. DATA : hx & exam reviewed. GOAL : maintain euvolemia, stable cardiac rhythm. PLAN : He doescontinuetoseecardiologyregularly,iffor nothingelse than to obtainsamplesofhisEliquis.He hasnot hadanycomplicationsfromanti-coagulation &no recentepisodesof sustainedAFib. 3.Has difficulty accessing primary care provider for most visits STATUS: Chronic, worse. DATA: hx reviewed. GOAL: improvehealth careaccess. PLAN: discussed alternativelivingsituationswith him.Also, givenphonenumber & office infoforAreaAgencyon Aging.Cont current monitoring. 4.Adult hypothyroidism STATUS: Chronic stable. DATA: hx reviewed. GOAL: replacethyroidhormone. PLAN: he is not sure whetherheistakinghisthyroidreplacementmedication, ornot. HislastTSH was 27, but itwasunclearat that time, whetherhe was takingmeds or not.Will recheckTSH. 5.Carotid stenosis, bilateral STATUS: Chronic stable. DATA: hx& last carotid Doppler reportreviewed. GOAL: avoidprogression. PLAN: his last carotid Doppler, showed non-occlusive ds. Of note, he is on statin & aspirin. 6.Chronic diastolic congestive heart failure STATUS : chronic, stable. DATA : hx, exam, weights reviewed. GOAL : maintain euvolemia & cardiovascular stability. PLAN : continue to limit salt intake, monitor weights & take diuretics, as directed. Return for worsening edema or other sx. 7.Morbid obesity STATUS : chronic, improved. DATA : hx & weights reviewed. GOAL : lose weight. PLAN : discussed options for weight loss. Fortunately, he is losing weight, though his nutrition is clearly suboptimal. Doubt that we could get GLP-1's covered by his insurance. 8.Sleep apnea He states that he has seen ENT & had surgery done to correct this. He reports that ENT told him that he no longer had sleep apnea. Return in4-6months. Time:Total time spent with this patient on day of evaluation including chart review, ordering, education and coordination of care elements: _37 minutes Immunizations Given and Recorded Vaccine Date [...] 1 tablet by mouth once daily, Pharmacy: [facility]229 Start Date: 07/16/22 Status: Ordered aspirin 81 mg oral delayed release tablet Start: 07/17/21 3:52:00 PM EDT, 1 tab, PO, Daily, Disp# 30 tab, Refills: 6, Pharmacy: [facility] [address] Start Date: 07/17/21 Stop Date: 02/12/22 Status: Ordered baclofen 10 mg oral tablet Start: 07/16/22 9:08:00 AM EDT, See Instructions, Disp# 60 tab, Refills: 3, TAKE ONE TABLET BY MOUTH 2 TIMES A DAY NEEDED FOR PAIN., Pharmacy: [facility] [address] Start Date: 07/16/22 Status: Ordered DULoxetine 30 mg oral delayed release capsule Start: 07/16/22 9:08:00 AM EDT, 1 cap, PO, Daily, Disp# 90 cap, Refills: 1, Pharmacy: [facility] [address] Start Date: 07/16/22 Status: Ordered EpiPen 2-Delmar 0.3 mg injectable kit Start: 01/11/21 8:25:00 AM EDT, 0.3 mg =, IM, ONCE, Disp# 1 each, Refills: 1, PRN: as needed for anaphylaxis, Pharmacy: [facility] [address] Start Date: 01/11/21 Status: Ordered gabapentin 600 mg oral tablet Start: 04/02/23 4:34:00 PM EST, 1 tab, PO, qid, Disp# 120 tab, Refills: 3, Pharmacy: [facility] [id number] Start Date: 04/02/23 Status: Ordered glipiZIDE 5 mg oral tablet Start: 07/16/22 9:08:00 AM EDT, 1 tab, PO, Daily, Disp# 90 tab, Refills: 3, TAKE 1 TABLET BY MOUTH ONCE DAILY, Pharmacy: [facility] [address] Start Date: 07/16/22 Stop Date: 07/11/23 Status: Ordered hydrOXYzine hydrochloride 50 mg oral tablet Start: 08/19/23 4:56:00 PM EDT, 1 tab, PO, bid, Disp# 60 tab, Refills: 0, PRN: as needed, Pharmacy: [facility] [address] Start Date: 08/19/23 Status: Ordered levothyroxine 125 mcg (0.125 mg) oral tablet Start: 07/16/22 9:08:00 AM EDT, 1 tab, PO, Daily, Disp# 30 tab, Refills: 6, Pharmacy: [facility] [address] Start Date: 07/16/22 Status: Ordered lisinopril 30 mg oral tablet Start: 07/16/22 9:08:00 AM EDT, 1 tab, PO, Daily, Disp# 90 tab, Refills: 1, Pharmacy: [facility] [address] Start Date: 07/16/22 Status: Ordered MetFORMIN (Eqv-Glucophage XR) 500 mg oral tablet, extended release Start: 08/25/23 7:56:00 AM EDT, 2 tab, PO, bid, Disp# 120 tab, Refills: 1, Pharmacy: [facility] [address] Start Date: 08/25/23 Status: Ordered metoprolol tartrate 50 mg oral tablet Start: 07/16/22 9:08:00 AM EDT, 1 tab, PO, bid, Disp# 180 tab, Refills: 3, Pharmacy: [facility] Start Date: 07/16/22 Status: Ordered omeprazole 40 mg oral delayed release capsule Start: 07/11/23 6:11:00 PM EDT, 1 cap, PO, Daily, Disp# 90 cap, Refills: 0, Pharmacy: [facility] [address] Start Date: 07/11/23 Status: Ordered pravastatin 80 mg oral tablet Start: 07/16/22 9:08:00 AM EDT, 1 tab, PO, Daily, Disp# 90 tab, Refills: 3, Pharmacy: [facility] Start Date: 07/16/22 Status: Ordered ReliOn/NovoLIN N FlexPen 100 units/mL subcutaneous suspension Start: 04/25/23 6:12:00 PM EST, 10 unit =, subQ, Daily, Disp# 15 mL, Refills: 1, Pharmacy: [facility] Start Date: 04/25/23 Status: Ordered Xarelto 20 mg oral tablet Start: 08/06/22 10:45:00 AM EDT, 1 tab, PO, Daily Start Date: 08/06/22 Status: Ordered Mental Status 08/25/23 Barriers to Learning one year None evide nt Mandatory Health Literacy Documentation Yes Health Literacy Communication Barriers N ever Primary Language Australian Problem List Condition Confirmation Course Effective Dates [...] Diagnosis Diagnosis Type Effective Dates Health Status Clinical Service Informant Carotid stenosis, bilateral Discharge Diagnosis 08/24/23 Non-Specified Sleep apnea Discharge Diagnosis 08/24/23 Non-Specified Type 2 diabetes mellitus with peripheral neuropathy Discharge Diagnosis 08/24/23 Non-Specified Afib Discharge Diagnosis 08/24/23 Non-Specified Adult hypothyroidism Discharge Diagnosis 08/24/23 Non-Specified Morbid obesity Discharge Diagnosis 08/24/23 Non-Specified Chronic diastolic congestive heart failure Discharge Diagnosis 08/24/23 Non-Specified Has difficulty accessing primary care provider for most visits Discharge Diagnosis 08/25/23 Non-Specified Procedures Procedure Date Related Diagnosis Body [...] carotid arteries, distal vertebral arteries, and bilateral commercial manager 3. moderate to severe calcified plaque within [...] carotid arteries, distal vertebral arteries, and bilateral commercial manager as described above. 3. moderate to sever calcified plaque within the bilateral carotid bifurcations resulting in up to 50% stenosis as described above. 4. approximately 70% stenosis at the takeoff of the right vertebral artery due to the calcified plaque 4stable cardiomegaly Results Laboratory List Name Date Comprehensive Metabolic Panel (COMP META B PANEL) 08/25/23 Hemoglobin A1C (HEMOGLOBIN, A1C) 08/25/23 Lipid Profile (LIPOPROTEINS) 08/25/23 Microalbumin, Urine, Random (MICROALBUMI N, RD UR) 08/25/23 Thyroid Stimulating Hormone (TSH) 4 Most recent to oldest [Reference Range]: 1 eGFR CKD-EPI [>60 mL/min/1.73 m2] 88 mL/ min/1.73 m2 1 (08/25/23 9:46 AM) Estimated Average Glucose 169 mg/dL (08/25/23 9:46 AM) Non-HDL 143 mg/dL 2 (08/25/23 9:46 AM) Estimated CrCl 103.67 mL/min (08/25/23 10:14 AM) Micro Alb (u) [<2.00 mg/dL] 26.92 mg/dL *HI* (08/25/23 9:46 AM) Anion Gap [5-14 mmol/L] 8 mmol/L (08/25/23 9:46 AM) Alb [3.5-5.0 g/dL] 4.4 g/dL (08/25/23 9:46 AM) Alk Phos [38-126 unit/L] 86 unit/L (08/25/23 9:46 AM) ALT [<50 unit/L] 16 unit/L (08/25/23 9:46 AM) AST [15-46 unit/L] 17 unit/L (08/25/23 9:46 AM) BUN [7-20 mg/dL] 16 mg/dL (08/25/23 9:46 AM) Ca [8.4-10.2 mg/dL] 8.9 mg/dL (08/25/23 9:46 AM) Chol/HDL 4 (08/25/23:46 AM) Chol [125-200 mg/dL] 191 mg/dL (08/25/23 9:46 AM) Cl- [96-107 mmol/L] 97 mmol/L (08/25/23:46 AM) HCO3 [22-30 mmol/L] 32 mmol/L *HI* (08/25/23 9:46 AM) Cret [0.70-1.30 mg/dL] 0.98 mg/dL (08/25/23 9:46 AM) HbA1c [<5.7 %] 7.5 % 3 *HI* (08/25/23 9:46 AM) Glu [74-106 mg/dL] 195 mg/dL *HI* (08/25/23 9:46 AM) HDL [>35 mg/dL] 48 mg/dL (08/25/23:46 AM) K [3.5-5.1 mmol/L] 4.3 mmol/L (08/25/23 9:46 AM) LDL Chol, Calculated [50-130 mg/dL] 110 mg/dL (08/25/23 9:46 AM) Micro Alb Ratio [<20 ug/mg cret] 91 ug/m g cret *HI* (08/25/23 9:46 AM) Na [137-145 mmol/L] 137 mmol/L (08/25/23 9:46 AM) T Bili [0.2-1.3 mg/dL] 0.5 mg/dL (08/25/23 9:46 AM) Prot [6.3-8.2 g/dL] 8.3 g/dL *HI* (08/25/23 9:46 AM) TG [<200 mg/dL] 167 mg/dL (08/25/23 9:46 AM) TSH [0.47-4.68 uIU/mL] 49.49 uIU/mL 4 *HI* (08/25/23 9:46 AM) Creat (u) 294.26 mg/dL 5 (08/25/23 9:46 AM) 1Result Comment: Testing Performed By: Dept of Pathology [facility], [address] [place] [address], [place] [address] 2Result Comment: Testing Performed By: Dept of Pathology [facility], [address] [place] [address], [place] [address] 3Result Comment: ADA Recommended [place] Reference Range: Normal: <5.7% Prediabetes: 5.7-6.4% Diabetes: >6.4% 4Result Comment: Testing Performed By: Dept of Pathology [facility], [address] [place] [address], [place] [address] 5Result Comment: Reference Range for Random Urine Not Established. Vital Signs Most recent to oldest [Reference Range]: 1 Patient Weight 131.9 kg (08/25/23 8:52 AM) Heart Rate 56 bpm (08/25/23 8:52 AM) Respiratory Rate 18 br/min (08/25/23 8:52 AM) Blood Pressure 150/80mmHg (08/25/23 8:52 AM) Cuff Pulse Pressure 70 mmHg (08/25/23 8:52 AM) BP Location # 1 Right Arm (08/25/23 8:52 AM) Social History Social History Type Response Tobacco Current every day sm oker, Oral, Ready to change: Yes. 1 Smoking Status Never smoked cigaret tigre Sex Male 12 cans snuff per week FCM Outpt Note * MD Elisabet, Camille Reyes: PERFORM Event Display: FCM Outpt Note Authored Date: [id number] Chief Complaint Check up, has lost about 20 pounds, has been cutting back on sweets History of Present Illness * This patient is being followed longitudinally for chronic serious medical problems by Dr. Camille Bhandari. Their most recent visitwith Dr. Bhandari: 07/05/22. Here for recheck offollowing concerns : 1) Type 2 DM - she is taking his Metformin & insulin consistently. He is not doing any glucometers. He admits that his dietconsists primarily of rice with butter. There are no grocery stores where he lives, so he mostly shops at [employer]. He did cut out the [employer] chocolate nuggets. 2) Hx of CVA - he has not had any residual sx. He still doesn't really believe that he had a stroke. 3) AFib - he is staying on Xarelto, because his refrigeration mechanic helper's office gives him samples. He is seeing refrigeration mechanic helper regularly, & they feel that he's doing OK. No chest pain or palpitations. 4) CHF - no breathing problems or swelling in legs. He sleeps in a recliner chair, but no problems with breathing when he is reclining. 5) Falls - he has not had any falls recently & has been using a walker consistently. He also ordered a 4 prong cane, but has not yet received it. 6) Hypothyroidism - he is tired a lot, but is unsure of whether he is taking his thyroid medicine. He did lose some weight. Vaccines : tetanus, shingles Review of Systems Review of Systems- Constitutional: no changeinchronicfatigue, has lostweight. HEENT: no vision changes, or sinus congestion. Respiratory: no cough, SOB, or wheezing. Cardiac: no chest pain, palpitations or pedal edema. GI: no abdominal painor change in bowel habits. :+ nocturia 2-3 times nightly, no change. Neurologic: no headaches. Musculoskeletal: No joint pains. Physical Exam Vitals & Measurements HR:56(Monitored) RR:18 BP:150/80 SpO2:93% WT:131.9kg WT:131.900kg(Dosing) PHQ2 Data(Data Documented on:08/25/2023 08:52) Emotional health assessment NEGATIVE PE : Alert, in NAD. HEENT - PERRL. TM's - normal. Nares - clear. Oropharynx - normal. Neck - supple, without thyromegaly or lymphadenopathy. Lungs - clear, with good breath sounds bilaterally. Heart - RRR with occasionalectopicbeat,but without murmur. 1+ pedal edema. Abdomen - +BS, soft, NT without HSM or mass. Neuro - alert & oriented, speech & cognition normal. Skin - warm & dry. Psych - affect appropriate. Assessment/Plan 1.Type 2 diabetes mellitus with peripheral neuropathy Status : chronic, uncontrolled. Data : diet reviewed. Goal : maintain normal blood sugars. Plan : get glucose, A1C, & urine microalbumin. Suspectpoor control,givenhishx& currentdietaryconstraints. Discussed, buthis lowhealthliteracy, aswellaslimitedtransportation &poorsocialsituation, arealllimitinghisability to improvehisdiabeticcontrol. 2.Afib STATUS : chronic, stable. DATA : hx & exam reviewed. GOAL : maintain euvolemia, stable cardiac rhythm. PLAN : He doescontinuetoseecardiologyregularly,iffor nothingelse than to obtainsamplesofhisEliquis.He hasnot hadanycomplicationsfromanti-coagulation &no recentepisodesof sustainedAFib. 3.Has difficulty accessing primary care provider for most visits STATUS: Chronic, worse. DATA: hx reviewed. GOAL: improvehealth careaccess. PLAN: discussed alternativelivingsituationswith him.Also, givenphonenumber & office infoforAreaAgencyon Aging.Cont current monitoring. 4.Adult hypothyroidism STATUS: Chronic stable. DATA: hx reviewed. GOAL: replacethyroidhormone. PLAN: he is not sure whetherheistakinghisthyroidreplacementmedication, ornot. His lastTSH was 27, but itwasunclearat that time, whetherhe was takingmeds or not.WillrecheckTSH. 5.Carotid stenosis, bilateral STATUS: Chronic stable. DATA: hx& last carotid Doppler reportreviewed. GOAL: avoidprogression. PLAN: his last carotid Doppler, showed non-occlusive ds. Of note, he is on statin & aspirin. 6.Chronic diastolic congestive heart failure STATUS : chronic, stable. DATA : hx, exam, weights reviewed. GOAL : maintain euvolemia & cardiovascular stability. PLAN : continue to limit salt intake, monitor weights & take diuretics, as directed. Return for worsening edema or other sx. 7.Morbid obesity STATUS : chronic, improved. DATA : hx & weights reviewed. GOAL : lose weight. PLAN : discussed options for weight loss. Fortunately, he is losing weight, though his nutrition is clearly suboptimal. Doubt that we could get GLP-1's covered by his insurance. 8.Sleep apnea He states that he has seen ENT & had surgery done to correct this. He reports that ENT toldhim that he no longer had sleep apnea. Return in4-6months. Time:Total time spent with this patient on day of evaluation including chart review, ordering, education and coordination of care elements: _37 minutes Problem List/Past Medical History Ongoing Adult [...] 6 refills lisinopril(lisinopril 30 mg oral tablet), 30 mg= 1 tab, PO, Daily, 1 refills metFORMIN(MetFORMIN (Eqv-Glucophage XR) 500 mg oral tablet, extended release), 2 tab, PO, bid metoprolol(metoprolol tartrate 50 mg oral tablet), 50 mg= 1 tab, PO, bid, 3 refills omeprazole(omeprazole 40 mg oral delayed release capsule), 1 cap, PO, Daily pravastatin(pravastatin 80 mg oral tablet), 80 mg= 1 tab, PO, Daily, 3 refills rivaroxaban(Xarelto 20 mg oral tablet), 20 mg= 1 tab, PO, Daily zoster vaccine, inactivated(Shingrix), 0.5 mL, IM, ONCE [...] Health Maintenance Pending(in the next year) OverDue Adult Influenza Vaccine due09/06/22and every 1year Due Diabetes Management A1c due07/06/23and every 366day Body Mass Index due08/07/23and every 366day Adult COVID-19 Vaccination due08/25/23Unknown Frequency Adult Social Determinants of Health Screening due08/25/23Unknown Frequency Adult Tdap/Td Vaccine due08/25/23Unknown Frequency Colorectal Cancer Screening due08/25/23Unknown Frequency Diabetic Eye Exam due08/25/23Unknown Frequency Hepatitis C Screening due08/25/23One-time only Shingles Vaccine due08/25/23One-time only Satisfied(in the past 1 year) Satisfied Lipid Screening on08/25/23.Satisfied by Contributor_system, [employer] Electronic Signature on File Electronically Reviewed/Signed by: Camille Bhandari MD Author Signature Dt/Tm:08/25/2023 02:08 PM Sample Taker Operator [facility] [address] [address] [facility] Patient Care team information Care Team Personnel Name: MD Elisabet, Camille Reyes Position: Physician - Family Med Member Role: Primary Care Provider Address: Address: [address] [place] [id number] [place] Care Team Related Persons Name: KOSTA LIMON"
[2024-01-15 08:11] LABS: Estimated Average Glucose 183 mg/dl
[2024-01-15 08:13] LABS: Albumin Globulin Ratio 1.4 (0.9-2); BUN Creatinine Ratio 12.1 (10-20); Calcium 9.1 mg/dl (8.6-10.3); Chol HDL Ratio 4.6 (0-5); Creatinine Clr Calc Pharmacy 108.5 ml/min; Globulin 2.8 gm/dl (2.5-4.0); Magnesium 1.8 mg/dl (1.7-2.4); Total Protein 6.8 gm/dl (6.0-8.3)
[2024-01-15] MEDS: PANTOprazole 40 MG/10 ML SYR IV SCH (09:08)
[2024-01-15] MEDS: MAGNESIUM SULFATE / D5W 1 GM/100 ML BAG IV SCH (09:23)
[2024-01-15] MEDS: INSULIN ASPART PER UNIT CHARGE SC SCH (09:30)
--- NOTE | 2024-01-15 09:59 | XCELERA ---
[id number]
--- NOTE | 2024-01-15 10:24 | Electrocardiogram Report ---
Test Reason : Blood Pressure : */* mmHG Vent. Rate : 96 BPM Atrial Rate : * BPM P-R Int : * ms QRS Dur : 130 ms QT Int : 400 ms P-R-T Axes : * -68 84 degrees QTcB Int : 505 ms Poor data quality, interpretation may be adversely affected Probable Atrial fibrillation Right bundle branch block Left anterior fascicular block Bifascicular block Minimal voltage criteria for LVH, may be normal variant ( R in aVL ) Abnormal ECG When compared with ECG of 12-Jul-2021 22:38, T wave inversion now evident in Anterior leads Confirmed by Juan Jose Dixon ([id number]) on 01/15/2024 10:23:52 AM Referred By: REFERRED SELF Confirmed By: Juan Jose Dixon
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
[2024-01-15] MEDS: HALOPERIDOL LACTATE 5 MG/ML 1 ML VIAL ONE (15:01)
[2024-01-15] MEDS: HALOPERIDOL LACTATE 5 MG/ML 1 ML VIAL IV STA (15:01)
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
--- NOTE | 2024-01-15 17:21 | Billing Data ---
Date of Service January 15, 2024 Coding Level of Care Code 94864 SUB INP/OBS CARE
--- NOTE | 2024-01-15 19:14 | XRay Report ---
EXAM: Radiograph of the Abdomen 1 View INDICATION: MRI clearance TECHNIQUE: Frontal supine view of the abdomen/pelvis. COMPARISON: No relevant prior studies available. FINDINGS: Limitations: None. Gastrointestinal tract: Moderate amounts of colonic stool noted diffusely. No distention. Organs: Probable hepatomegaly. Bones/joints: No fracture, erosion or dislocation. Soft tissues: No radiopaque foreign body noted within the patient. Other findings: IMPRESSION: 1. No radiopaque foreign body noted within the abdomen or pelvis. 2. Probable hepatomegaly. ACT 112: Negative or not required by law. Electronically signed by Temitope Florian 01-15-2024 7:14 PM
--- NOTE | 2024-01-15 19:14 | XRay Report ---
EXAM: Radiographs of the Orbits Foreign Body INDICATION: MRI clearance TECHNIQUE: Frontal view(s) of the orbits. COMPARISON: No relevant prior studies available. FINDINGS: Bones/joints: No fracture, erosion or dislocation. Sinuses: No abnormality noted. No air-fluid levels. Soft tissues: No abnormality noted. Dental: Dental fillings noted. No other foreign body identified. IMPRESSION: Dental fillings noted. No other foreign body identified. ACT 112: Negative or not required by law. Electronically signed by Temitope Florian 01-15-2024 7:12 PM
--- NOTE | 2024-01-15 19:16 | XRay Report ---
EXAM: Radiograph of the Chest 1 View INDICATION: MRI clearance TECHNIQUE: Frontal view of the chest. COMPARISON: 07/12/2021 FINDINGS: Lungs and pleural spaces: No consolidation or pulmonary edema. No pleural effusion or pneumothorax. Heart: Stable cardiomegaly. Stable left coronary stent. Mediastinum: Normal contour. Bones/joints: Degenerative changes noted throughout the spine. No acute osseous abnormality seen. Soft tissues: No abnormality noted. No radiopaque foreign body noted. Vasculature: Dense bilateral carotid calcification noted. Upper abdomen: No abnormality noted. IMPRESSION: 1. Stable left coronary stent. No other foreign body noted within the thorax. 2. No acute cardiopulmonary disease. ACT 112: Negative or not required by law. Electronically signed by Temitope Florian 01-15-2024 7:16 PM
--- NOTE | 2024-01-15 20:36 | Magnetic Resonance Report ---
Exam(s): MRI HEAD Without Contrast EXAM: MR Head Without Intravenous Contrast CLINICAL HISTORY: Reason for exam: confusion, memory loss. TECHNIQUE: Magnetic resonance images of the head/brain without intravenous contrast in multiple planes. COMPARISON: No relevant prior studies available. FINDINGS: Brain: Encephalomalacia seen in the left occipital lobe. Chronic periventricular ischemic demyelination changes seen due to small vessel disease. No hemorrhage. Ventricles: Unremarkable. No ventriculomegaly. Bones/joints: Unremarkable. No acute fracture. Sinuses: Unremarkable as visualized. No acute sinusitis. Mastoid air cells: Unremarkable as visualized. No mastoid effusion. Orbits: Unremarkable as visualized. IMPRESSION: No acute intracranial abnormality Electronically signed by: Jamar Appiah MD 01/15/24 20:35 PM
[2024-01-16] MEDS: ACETAMINOPHEN 1000 MG/100 ML IV IV PRN (02:59)
[2024-01-16 06:05] LABS: Basophils # (auto) 0.05 K/uL (0.00-0.20); Basophils % (auto) 0.4 %; Eosinophils # (auto) 0.12 K/uL (0.00-0.50); Hematocrit (blood only) 47.7 % (42.0-52.0); Hemoglobin 16.3 g/dl (14.0-18.0); Immature Granulocytes # (auto) 0.06 K/uL (0.01-0.20); Immature Granulocytes % (auto) 0.5 %; Lymphocytes % (auto) 19.3 %; Mean Corpuscular Hemoglobin 30.2 pg (25.0-34.0); Mean Corpuscular Hgb Conc 34.2 g/dL (32.0-36.0); Mean Corpuscular Volume 88.5 fL (80.0-100.0); Mean Platelet Volume 9.7 fL (9.4-12.4); Monocytes # (auto) 0.81 K/uL (0.11-0.59); Monocytes % (auto) 6.8 %; Platelet Count 201 K/uL (130-400); RDW Coefficient of Variation 12.5 % (11.5-14.5); RDW Standard Deviation 40.6 fL (36.4-46.3); Red Blood Count 5.39 M/uL (4.70-6.10); White Blood Count 11.94 K/ul (4.8-10.8)
[2024-01-16 06:17] LABS: Albumin Globulin Ratio 1.3 (0.9-2); Albumin Level 4.4 gm/dl (3.4-5.0); BUN Creatinine Ratio 14.4 (10-20); Calcium 9.1 mg/dl (8.6-10.3); Creatinine Clr Calc Pharmacy 94.9 ml/min; Globulin 3.4 gm/dl (2.5-4.0); Magnesium 1.9 mg/dl (1.7-2.4); Total Protein 7.8 gm/dl (6.0-8.3)
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
[2024-01-16] MEDS: INFLUENZA VACC TS2024-25(6m+)/PF (IIV3) 0.5mL Syr IM ONE (08:52)
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
--- NOTE | 2024-01-16 16:32 | Billing Data ---
Date of Service January 16, 2024 Coding Level of Care Code 56656 SUB INP/OBS CARE
[2024-01-17] MEDS: LORazepam 2 MG/1 ML VIAL IV PRN (01:05)
[2024-01-17 07:37] LABS: Basophils # (auto) 0.05 K/uL (0.00-0.20); Basophils % (auto) 0.4 %; Eosinophils % (auto) 1.7 %; Hemoglobin 15.8 g/dl (14.0-18.0); Immature Granulocytes # (auto) 0.04 K/uL (0.01-0.20); Immature Granulocytes % (auto) 0.3 %; Lymphocytes # (auto) 2.83 K/uL (1.20-3.40); Lymphocytes % (auto) 24.5 %; Mean Corpuscular Hemoglobin 30.5 pg (25.0-34.0); Mean Corpuscular Hgb Conc 34.3 g/dL (32.0-36.0); Mean Corpuscular Volume 88.8 fL (80.0-100.0); Mean Platelet Volume 9.7 fL (9.4-12.4); Monocytes # (auto) 0.76 K/uL (0.11-0.59); Monocytes % (auto) 6.6 %; Neutrophils # (auto) 7.67 K/uL (1.40-6.50); Neutrophils % (auto) 66.5 %; Platelet Count 183 K/uL (130-400); RDW Coefficient of Variation 12.4 % (11.5-14.5); RDW Standard Deviation 40.4 fL (36.4-46.3); Red Blood Count 5.18 M/uL (4.70-6.10); White Blood Count 11.55 K/ul (4.8-10.8)
[2024-01-17 07:52] LABS: Albumin Globulin Ratio 1.5 (0.9-2); Albumin Level 4.1 gm/dl (3.4-5.0); BUN Creatinine Ratio 22.2 (10-20); Bilirubin,Total 0.8 mg/dl (0.2-1.0); Calcium 8.9 mg/dl (8.6-10.3); Creatinine Clr Calc Pharmacy 121.9 ml/min; Globulin 2.8 gm/dl (2.5-4.0); Magnesium 1.6 mg/dl (1.7-2.4); Potassium 3.8 mmol/L (3.5-5.1); Total Protein 6.9 gm/dl (6.0-8.3)
--- NOTE | 2024-01-17 08:00 | Hospitalist Progress Note ---
Date of Service January 17, 2024 Assessment & Plan (1) Confusion and disorientation: (2) A-fib: (3) Forgetfulness: (4) HTN (hypertension): (5) Hypothyroidism: (6) Type 2 diabetes mellitus: (7) History of CVA (cerebrovascular accident): Plan (1) Confusion and disorientation Assessment: Diagnostic imaging from late 01/13 and evening of 01/14 was normal, making CVA less likely. Initial event could be an episode of TGA or seizure. CoMA on 01/15 reported a score of 8/30. - Delirium is likely of metabolic or toxic etiology. Less likely to be septic based on improving leukocytosis. Unlikely to be environmental based on rapid onset. Plan: Continue most of the current at-home medication regimen - restarted many of the patient's meds today: metoprolol, Xarelto, levothyroxine, fluoxetine, duloxetine, buspirone, lisinopril, pravastatin, and allopurinol - nurse did med rec on him today and there were many meds that he appears not to be taking that he took before including: allopurinol, baclofen, buspirone, fluoxetine, gemfibrozil, glipizide, levothyroxine, metoprolol, omeprazole, Xarelto Continue workup for delirium for metabolic and toxic etiology. Differential Dx's include: polypharmacy or dehydration vs. SSRI/SNR discontinuation syndrome vs. metabolic abnormalities vs. 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 His phone number is [phone] Could consider further inquiry into patient's family members regarding medical decision making for next steps in care, though pt seems to prefer not to have any contact w/ other family members Admission and Anticipated Discharge Date Admission Date: January 14, 2024 Supervising Physician Co-Signing Physician Notes I personally examined the patient and verified all bustillos points of history and exam, discussed case, and agree with decision making with Dr Almendarez sleeping when i see him, but seems to be a little less confused today in discussion with care team vitals noted sedate nad breathing unlabored no accessory muscles good effort delirium - ?etiology. right now polypharmacy is leading ddx. also not totally clear how much is acute and how much is chronic. with waxing/waning confusion and no real social support does not appear safe to be home alone; with waxing and waning mentation and MOCA of 12/07 does not appear to have capacity at this time (obviously not yet clear about terminal gauger implications with MOCA given not clear how much is delirium vs dementia, but at least acutely reflects that he would be unsafe/doesn't show capacity to make safe decisions). today a bit better - if confusion lifts and waxing and waning fades this would prove itself to be delirium (probably from polypharmacy) and the capacity issue would no longer be a problem - but obviously need to follow over longer, and at this point would still not feel he is safe at home; still would anticipate needing some kind of rehab stay and close f/u. PT/OT eval and treat TIA vs TGA vs focal seizure vs purely polypharmacy or metabolic cause of delirium and possibly admitting presentation due to delirium only wihtout any other factors besides precipitating cause of delirium. otherwise as above Subjective CC: Confusion and delirium Patient states that he is feeling well this morning, states that he slept well last night. Patient doesn't remember feeling particularly anxious last night. Patient does appear to be AAO x3, and has some but not a complete idea of why he's in the hospital. Patient does remember that there was a recent presidential election, that Zhang won, beating out Kristel Khalil. Patient not experiencing any N/V/D/C this morning, no HAs, no CP, AP, or numbness/tingling anywhere. Review of Systems Constitutional: no fever, no chills and no fatigue Respiratory: no cough and no dyspnea Cardiovascular: no chest pain and no palpitations Gastrointestinal: no abdominal pain, no nausea, no vomiting, no constipation and no diarrhea/loose stools Physical Exam Constitutional: WD/WN, vitals as above Respiratory: normal respiratory effort, lungs clear to auscultation Cardiovascular: RRR, no murmur, no edema Gastrointestinal (Abdomen): normal bowel sounds, soft, nontender, no hepatosplenomegaly Psychiatric: A+Ox3, euthymic affect Results & Data Results & Data Vital Signs (Past 12 Hours) Vital Signs Temp Pulse Pulse Resp BP BP Pulse Ox 11/09/24 07:00 37.0 C 92 H 20 171/78 H 97 01/17/24 02:57 37 C 75 15 159/98 H 95 01/16/24 23:32 85 01/16/24 23:00 01/16/24 22:13 36.7 C 78 16 142/79 H 93 Pulse Ox O2 Del Method O2 Del Method 01/17/24 07:00 Room Air 01/17/24 02:57 Room Air 01/16/24 23:32 01/16/24 23:00 93 Room Air 01/16/24 22:13 Room Air (2) A-fib Atrial fibrillation type: unspecified Qualified Code(s): I48.91 - Unspecified atrial fibrillation
[2024-01-17] MEDS ORDERED: FLUoxetine HCL 20 MG CAP PO SCH (09:00)
[2024-01-17] MEDS: ACETAMINOPHEN 325 MG TAB PO PRN (11:10)
[2024-01-17] MEDS: lisinopril 10 MG TAB PO SCH (14:15)
[2024-01-17] MEDS: DULoxetine HCL 60 MG CAP PO SCH (16:26)
[2024-01-17] MEDS: PRAVASTATIN SOD 40 MG TAB PO SCH (17:43)
--- NOTE | 2024-01-17 17:59 | Billing Data ---
Date of Service January 17, 2024 Coding Level of Care Code 17897 SUB INP/OBS CARE
[2024-01-17] MEDS: busPIRone 15 MG TAB PO SCH (18:52)
[2024-01-17] MEDS: METOPROLOL TARTRATE 50 MG TAB PO SCH (20:43)
[2024-01-17] MEDS: hydrOXYzine HCl 25 MG TAB PO PRN (23:00)
[2024-01-18 04:51] LABS: Hematocrit (blood only) 43.7 % (42.0-52.0); Hemoglobin 15.5 g/dl (14.0-18.0); Mean Corpuscular Hemoglobin 30.9 pg (25.0-34.0); Mean Corpuscular Hgb Conc 35.5 g/dL (32.0-36.0); Mean Corpuscular Volume 87.1 fL (80.0-100.0); Platelet Count 196 K/uL (130-400); RDW Coefficient of Variation 12.3 % (11.5-14.5); RDW Standard Deviation 38.9 fL (36.4-46.3); Red Blood Count 5.02 M/uL (4.70-6.10); White Blood Count 12.63 K/ul (4.8-10.8)
[2024-01-18 05:02] LABS: Potassium 3.8 mmol/L (3.5-5.1)
[2024-01-18 05:07] LABS: BUN Creatinine Ratio 23.2 (10-20); Creatinine Clr Calc Pharmacy 103.9 ml/min; Uric Acid 7.6 mg/dl (2.6-7.2)
[2024-01-18 05:30] LABS: Thyroid Stimulating Hormone 16.087 uIu/ml (0.300-4.500)
[2024-01-18] MEDS: LEVOTHYROXINE SODIUM 125 MCG TABLET PO SCH (05:45)
[2024-01-18] MEDS: allopurinoL 300 MG TAB PO SCH (07:56)
[2024-01-18] MEDS: DULoxetine HCL 30 MG CAP PO SCH (07:56)
[2024-01-18] MEDS: RIVAROXABAN 20 MG TAB PO SCH (07:57)
[2024-01-18] MEDS: LANTUS PER UNIT CHARGE SQ SCH (09:08)
--- NOTE | 2024-01-18 10:33 | Hospitalist Progress Note ---
Date of Service January 18, 2024 Assessment & Plan (1) Confusion and disorientation: (2) A-fib: (3) Forgetfulness: (4) HTN (hypertension): (5) Hypothyroidism: (6) Type 2 diabetes mellitus: (7) History of CVA (cerebrovascular accident): Plan (1) Confusion and disorientation Assessment: Diagnostic imaging from late 01/13 and evening of 01/14 was normal, making CVA less likely. - MOCA ([place] cognitive assessment) on 01/15 reported a score of 8/30. - Delirium is likely of metabolic or toxic etiology. Less likely to be septic based on improving leukocytosis. Unlikely to be environmental based on rapid onset. Other unlikely causes include TGA or seizure. Plan: Continue most of the current at-home medication regimen - restarted many of the patient's meds 01/16: metoprolol, Xarelto, levothyroxine, fluoxetine, duloxetine, buspirone, lisinopril, pravastatin, hydroxyzine and allopurinol - nurse did med rec on him today and there were many meds that he appears not to be taking that he took before including: allopurinol, baclofen, buspirone, fluoxetine, gemfibrozil, glipizide, levothyroxine, metoprolol, omeprazole, Xarelto - Continue workup for delirium for metabolic and toxic etiology. TSH, 16.1; Differential Dx's include: polypharmacy vs. dehydration vs. SSRI/SNR discontinuation syndrome vs. metabolic abnormalities vs. TGA 2) Anxiety/Depression - pt w/ anxiety symptoms before and after re-starting many of his anti-anxiety meds (fluoxetine, duloxetine, buspirone, hydroxyzine) - pt has expressed passive SI while in hospital (on 01/17) but denies active SI; patient basically just feels like "giving up" and his medication non-adherence seems to support this - follows w/ Dr. 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 His phone number is [phone] - Patient prefers no family member involvement regarding medical decision making for next steps in care - Patient's capacity to make his own health care decisions may be limited due to delirium, so discharge may be complicated Code status: Full code DVT prophylaxis: Chilango MARTINEZ: T2DM carb consistent, heart healthy diet Diposition: PCU-Tele Admission and Anticipated Discharge Date Admission Date: January 14, 2024 Supervising Physician Co-Signing Physician Notes I personally examined the patient and verified all bustillos points of history and exam, discussed case, and agree with decision making with Dr Almendarez sleeping when i see him, but seems to be a little less confused today in discussion with care team vitals noted sedate nad breathing unlabored no accessory muscles good effort delirium - ?etiology. right now polypharmacy is leading ddx. also not totally clear how much is acute and how much is chronic. with waxing/waning confusion and no real social support does not appear safe to be home alone; with waxing and waning mentation and MOCA of 12/07 does not appear to have capacity at this time (obviously not yet clear about jail implications with MOCA given not clear how much is delirium vs dementia, but at least acutely reflects that he would be unsafe/doesn't show capacity to make safe decisions). maybe a little worse again today- if confusion lifts and waxing and waning fades this would prove itself to be delirium (probably from polypharmacy) and the capacity issue would no longer be a problem - but obviously need to follow over longer, and at this point would still not feel he is safe at home; still would anticipate needing some kind of rehab stay and close f/u. (and if needs facility but doesn't have capacity, right now doesn't have anyone who could consent on his behalf, complicating the dispo situation) PT/OT eval and treat ongoing TIA vs TGA vs focal seizure vs purely polypharmacy or metabolic cause of delirium and possibly admitting presentation due to delirium only without any other factors besides precipitating cause of delirium. otherwise as above Subjective The patient is a 63-year-old male with a past medical history including atrial fibrillation, CVA, HFpEF, hypertension, major depressive disorder, hypothyroidism, diabetes mellitus type 2, dyslipidemia and obesity, who presented to the [facility] ED for confusion and delirium. Patient states that he is feeling well this morning, states that he slept well last night. Patient does endorse continued anxiety during his stay but was counseled that many of his anti-anxiety meds were re-started yesterday. Patient still appears to be AAO x3, and has some but not a complete idea of why he's in the hospital. Remembers recent presidential election, that Zhang was elected over Kristel Khalil. Patient not experiencing any N/V/D/C this morning, no HAs, no CP, AP, or numbness/tingling anywhere. No acute concerns medically besides his anxiety. Patient did note today inability to see even with his bifocals (lenses are scratched up so badly). Patient is aware he needs to get to the salvage engineer to get a new pair of glasses. Review of Systems Constitutional: no fever, no chills and no fatigue Ear, Nose, Mouth, Throat: no nasal congestion, no nasal discharge and no sore throat Respiratory: no cough and no dyspnea Cardiovascular: no chest pain and no palpitations Gastrointestinal: no abdominal pain, no nausea, no vomiting, no constipation and no diarrhea/loose stools Genitourinary: no dysuria, no urinary frequency, no hematuria or no flank pain Neurologic: no tingling, no numbness and no headache(s) Psychiatric: + anxiety and + difficulty concentrating Physical Exam Constitutional: WD/WN, vitals as above Respiratory: normal respiratory effort, lungs clear to auscultation Cardiovascular: RRR, no murmur, no edema Gastrointestinal (Abdomen): normal bowel sounds, soft, nontender, no hepatosplenomegaly Psychiatric: A+Ox3, euthymic affect Results & Data Results & Data Vital Signs (Past 12 Hours) Vital Signs Temp Pulse Pulse Resp BP Pulse Ox Pulse Ox 01/18/24 08:08 71 01/18/24 07:52 36.7 C 76 20 130/85 96 01/18/24 04:44 36.4 C L 80 18 133/84 96 01/18/24 00:33 36.7 C 72 16 114/74 95 01/18/24 00:00 105 H 01/17/24 23:00 94 O2 Del Method O2 Del Method 01/18/24 08:08 01/18/24 07:52 Room Air 01/18/24 04:44 Room Air 01/18/24 00:33 Room Air 01/18/24 00:00 01/17/24 23:00 Room Air (2) A-fib Atrial fibrillation type: unspecified Qualified Code(s): I48.91 - Unspecified atrial fibrillation
[2024-01-18] MEDS: ACETAMINOPHEN 500 MG TAB PO PRN (11:03)
[2024-01-18] MEDS: IBUPROFEN 200 MG TAB PO PRN (11:04)
[2024-01-18] MEDS ORDERED: LIDOCAINE 4% CREAM 15 GM TUBE EXT PRN (16:03)
--- NOTE | 2024-01-18 16:50 | Billing Data ---
Date of Service January 18, 2024 Coding Level of Care Code 97330 SUB INP/OBS CARE
[2024-01-18] MEDS: GABAPENTIN 300 MG CAP PO SCH (20:17)
--- NOTE | 2024-01-19 07:57 | Hospitalist Progress Note ---
Date of Service January 19, 2024 Assessment & Plan (1) Confusion and disorientation: (2) A-fib: (3) Forgetfulness: (4) HTN (hypertension): (5) Hypothyroidism: (6) Type 2 diabetes mellitus: (7) History of CVA (cerebrovascular accident): Plan Pt is a 63 yo male with a past medical hx of atrial fibrillation, hx CVA, HFpEF, hypertension, major depressive disorder, hypothyroidism, diabetes mellitus type 2, dyslipidemia and obesity who presents to the hospital on 01/13 for confusion. #Delirium Assessment: Diagnostic imaging from late 01/13 and evening of 01/14 was normal, making CVA less likely. - MOCA ([place] cognitive assessment) on 01/15 reported a score of 8/30. - delirium most likely multifactorial, combination of polypharmacy or pharmacy error (missed/extra doses) given chronic cognitive decline, hypothyroidism, and/or metabolic - TSH 16.1 - will consult psychiatry inpatient for med reconciliation because pt is on numerous psychiatric medications with heavy serotonin burden Plan: Continue most of the current at-home medication regimen - restarted many of the patient's meds 01/16: metoprolol, Xarelto, levothyroxine, fluoxetine, duloxetine, buspirone, lisinopril, pravastatin, hydroxyzine and allopurinol #Anxiety/Depression - pt has expressed passive SI while in hospital (on 01/17) but denies active SI; patient basically just feels like "giving up" and his medication non-adherence seems to support this - follows w/ Dr. 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; Haldol or other sedative medication as needed, HS PRN - PT/OT recommend rehab - Amaury Fournier (neighbor) is designated contact for him, His phone number is [phone] - Patient prefers no family member involvement regarding medical decision making for next steps in care DVT prophylaxis: Jessicaquis Admission and Anticipated Discharge Date Admission Date: January 14, 2024 Supervising Physician Co-Signing Physician Notes Attending Physician Supervision Note: I independently interviewed and examined the patient and verified the bustillos history and physical, reviewed labs and image studies and agree with findings and care plan noted above. sleeping but arousable. doesn't recall recent events. vitals noted sedate nad breathing unlabored no accessory muscles good effort delirium with severe underlying dementia - MOCA 9/10 TIA vs TGA vs focal seizure vs purely polypharmacy or metabolic cause of delirium were entertained. reviewed pcp notes. has had problem caring for himself at home. also has h/o UPPP for sleep apnea. no f/u since then. Agree - acutely reflects that he would be unsafe at home alone/doesn't show capacity to make safe decisions if confusion lifts and waxing and waning fades this would prove itself to be delirium (probably from polypharmacy) and the capacity issue would no longer be a problem - but obviously need to follow over longer; Will need [facility] involvement. PT/OT eval and treat ongoing. rehab placement. otherwise as above Subjective Pt is a 63 yo male with a past medical hx of atrial fibrillation, hx CVA, HFpEF, hypertension, major depressive disorder, hypothyroidism, diabetes mellitus type 2, dyslipidemia and obesity who presents to the hospital on 01/13 for confusion. Today, pt states he is feeling fine. He states he lives at home with just his dog but that he has family/friends nearby to help if needed. He states that he usually does not have to go more than 2 miles to get to anything he needs and takes care of himself on his own at home. He can recall details of his hospital stay today. Able to tell me self, place, and event but guessed 2021 for year. He has no acute concerns today. Review of Systems Review of Systems: Per HPI. Physical Exam Physical Exam: General:Alert and orientedx3/4, no acute distress, HEENT: Normocephalic, moist oral mucosa, Cardio: Regular rate and rhythm, no murmur, Resp:Lungs clear to auscultation b/l, no wheezes or rhonchi, GI: Soft and nontender, nondistended, bowel sounds active Skin: Warm, pink, dry, Results & Data Results & Data Vital Signs (Past 12 Hours) Vital Signs Temp Pulse Pulse Resp BP BP Pulse Ox 01/19/24 03:46 36.4 C L 62 16 135/87 95 01/18/24 23:00 61 01/18/24 23:00 01/18/24 22:27 36.5 C 70 16 121/76 94 01/18/24 20:10 36.5 C 63 16 106/71 97 01/18/24 20:00 Pulse Ox O2 Del Method O2 Del Method 01/19/24 03:46 Room Air 01/18/24 23:00 01/18/24 23:00 94 Room Air 01/18/24 22:27 Room Air 01/18/24 20:10 Room Air 01/18/24 20:00 Room Air Resident Activity Tracking Resident Involvement: Resident Care Provided Care Provided: Adult Hospital Medicine (2) A-fib Atrial fibrillation type: unspecified Qualified Code(s): I48.91 - Unspecified atrial fibrillation
[2024-01-19 10:07] LABS: Albumin Globulin Ratio 1.5 (0.9-2); Albumin Level 4.3 gm/dl (3.4-5.0); BUN Creatinine Ratio 30.8 (10-20); Bilirubin,Total 0.7 mg/dl (0.2-1.0); Calcium 9.2 mg/dl (8.6-10.3); Creatinine Clr Calc Pharmacy 94.4 ml/min; Globulin 2.8 gm/dl (2.5-4.0); Potassium 4.1 mmol/L (3.5-5.1); Total Protein 7.1 gm/dl (6.0-8.3)
[2024-01-20 06:36] LABS: Basophils # (auto) 0.05 K/uL (0.00-0.20); Basophils % (auto) 0.4 %; Eosinophils # (auto) 0.24 K/uL (0.00-0.50); Hematocrit (blood only) 44.2 % (42.0-52.0); Hemoglobin 15.2 g/dl (14.0-18.0); Immature Granulocytes # (auto) 0.05 K/uL (0.01-0.20); Immature Granulocytes % (auto) 0.4 %; Lymphocytes % (auto) 23.1 %; Mean Corpuscular Hgb Conc 34.4 g/dL (32.0-36.0); Mean Platelet Volume 10.3 fL (9.4-12.4); Monocytes # (auto) 0.89 K/uL (0.11-0.59); Monocytes % (auto) 7.3 %; Neutrophils # (auto) 8.09 K/uL (1.40-6.50); Neutrophils % (auto) 66.8 %; Platelet Count 212 K/uL (130-400); RDW Coefficient of Variation 12.5 % (11.5-14.5); Red Blood Count 4.91 M/uL (4.70-6.10); White Blood Count 12.12 K/ul (4.8-10.8)
[2024-01-20 06:52] LABS: BUN Creatinine Ratio 32.8 (10-20); Calcium 8.9 mg/dl (8.6-10.3); Creatinine Clr Calc Pharmacy 82.5 ml/min; Potassium 4.4 mmol/L (3.5-5.1)
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
[2024-01-22 03:56] VITALS: RESP 19
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
[2024-01-22 11:29] VITALS: PULSE 51; TEMP 97.9; O2SAT 95
--- NOTE | 2024-01-22 11:45 | Psychiatric Progress Note ---
Date of Service January 22, 2024 Impression / Recommendations Impression Diagnostically consistent with delirium, unclear if possibly set off from recent TIA due to non-adherence with outpatient medications vs alternative cause. Given lack of recent psychiatric prescriptions unlikely his presentation is due to psychiatric medication though possible the hydroxyzine could have lead to confusion and sedation if he was taking this in excessive amounts recently (but unlikely given his report of not taking anything except duloxetine recently). A: Delirium seems to have resolved, did well overnight and continues to do well today without 1-on-1. Mood remains positive and acute risk of self-harm is low given denial of SI, stable mood, future-oriented and with strong deterrents/reasons for living. Can speak to how he will meet all of his healthcare, hygiene, nutritional, housing and safety needs. [place] to have dispositional decision making capacity given resolution of acute delirium. Tolerating his medications well. Overall, I spent a total of 45 minutes with this case including review of chart records, review of labwork, direct evaluation of the patient at bedside, counseling the patient, discussion of the patient with the Nurse and with the hospitalist provider, discussion with the psychiatric liason during clinical rounds and documentation in the electronic health record. (1) Delirium: (2) Medication non-compliance due to excessive pill burden: Plan -Continue duloxetine 30mg daily Interval History Identifying Information 63 yo man with a history of atrial fibrillation, CVA, HFpEF, hypertension, major depressive disorder, hypothyroidism, diabetes mellitus type 2, dyslipidemia and obesity admitted medically after episode of confusion. Psychiatry consulted for medication recommendations, decision making capacity. Chief Complaint "I'm good, I can't wait to hug my dog". Subjective Subjective Patient was seen & assessed and interval progress reviewed. Came off 1-on-1 yesterday afternoon. No overnight events. Per discussion with RN-did well overnight and today. Has been attending to hygiene, moving about his room, eating well and no signs of disorganization or unsafe behaviors or significant confusion. This morning tell me his mood is "good". Denies SI, reports his dog is a huge deterrent and significant reason for living. Reviews that he's had a good morning and confirmed he has a friend who will help him get and unpack groceries once he returns home. Has some frozen meals already in his freezer. Looking forward to seeing his dog and getting back home. Physical Exam Psychiatric Orientation: alert, oriented x 3 and cooperative Apperance: appropriately dressed and appropriately groomed Eye Contact: good eye contact Motor Behavior: no abnormal motor movements Speech: normal rate/rhythm/volume of speech Affect: euthymic affect Mood: no depressed mood and no anxious mood Thought Process: goal directed thought process Thought Content: reality based without delusions Suicidal Thoughts: denies suicidal thoughts Homicidal Thoughts: denies homicidal thoughts Hallucinations: no auditory hallucinations and no visual hallucinations Cognition: recent memory grossly intact, remote memory grossly intact, attention grossly intact and language grossly intact Insight: + limited insight Judgment: + fair judgement Vital Signs (Past 24 Hours) Last Vital Signs Temp 36.6 C 01/22/24 11:29 Pulse 51 L 01/22/24 11:29 Resp 19 01/22/24 11:29 BP 94/50 L 01/22/24 11:29 Pulse Ox 95 01/22/24 11:29 O2 Del Method Room Air 01/22/24 11:29 Results & Data ([facility]) Laboratory Results Laboratory Results - last 24 hr 01/21/24 01/21/24 01/21/24 12:15 17:05 19:57 POC Glucose 185 H 154 H 180 H 01/22/24 07:57 POC Glucose 145 H Current Inpatient Medications Current Inpatient Medications: Current Inpatient Medications Acetaminophen (Acetaminophen 500 Mg Tab) 1,000 mg PO Q8H PRN PRN Reason: Mild-Mod Pain (Scale 1-6) Stop: 02/17/24 10:45 Last Admin: 01/21/24 22:13 Dose: 1,000 mg Albuterol (Albut/Ipratrop 3mg/0.5mg Neb 3 Ml Vial) 3 ml NEB Q2H PRN; Protocol PRN Reason: dyspnea Stop: 02/13/24 23:57 Last Admin: 01/15/24 00:50 Dose: 3 ml Allopurinol (Allopurinol 300 Mg Tab) 300 mg PO DAILY AMAURY Stop: 02/17/24 08:59 Last Admin: 01/22/24 08:22 Dose: 300 mg Buspirone HCl (Buspirone 15 Mg Tab) 15 mg PO QAM AMAURY Stop: 02/16/24 17:59 Last Admin: 01/20/24 07:31 Dose: 15 mg Dextrose (Dextrose 50% 50 Ml Syringe) 25 - 50 ml IV UD PRN; Protocol PRN Reason: Hypoglycemia Protocol Stop: 02/13/24 23:57 Duloxetine HCl (Duloxetine Hcl 30 Mg Cap) 30 mg PO QAM [facility] Stop: 02/17/24 08:59 Last Admin: 01/22/24 08:22 Dose: 30 mg Gabapentin (Gabapentin 300 Mg Cap) 300 mg PO BID AMAURY Stop: 02/17/24 20:59 Last Admin: 01/22/24 08:22 Dose: 300 mg Glucagon (Glucagon For Inj 1 Mg Vial) 1 mg SQ UD PRN; Protocol PRN Reason: Hypoglycemia Protocol Stop: 02/13/24 23:57 Glucose (Glucose 40% Gel 15 Gm Tube) 15 - 30 gm PO UD PRN; Protocol PRN Reason: Hypoglycemia Protocol Stop: 02/13/24 23:57 Glucose (Glucose 10 Tab/Tube) 4 - 8 tab PO UD PRN; Protocol PRN Reason: Hypoglycemia Protocol Stop: 02/13/24 23:57 Hydroxyzine HCl (Hydroxyzine Hcl 25 Mg Tab) 25 mg PO QID PRN PRN Reason: Anxiety/Insomnia Stop: 02/16/24 22:16 Last Admin: 01/19/24 00:17 Dose: 25 mg Insulin Aspart (Insulin Aspart Per Unit Charge) 0 units SC ACHS [facility] Stop: 02/14/24 07:29 Last Admin: 01/22/24 08:40 Dose: 2 units Insulin Glargine (Lantus Per Unit Charge) 5 units SQ DAILY [facility] Stop: 02/17/24 08:59 Last Admin: 01/22/24 08:40 Dose: 5 units Levothyroxine Sodium (Levothyroxine Sodium 125 Mcg Tablet) 125 mcg PO DAILYBB [facility] Stop: 02/17/24 06:29 Last Admin: 01/22/24 06:20 Dose: 125 mcg Lidocaine (Lidocaine 4% Cream 15 Gm Tube) 1 appln EXT Q12 PRN PRN Reason: Peripheral Neuropathy Stop: 02/17/24 16:02 Lisinopril (Lisinopril 10 Mg Tab) 30 mg PO QAM [facility] Stop: 02/16/24 12:29 Last Admin: 01/22/24 08:22 Dose: 30 mg Metoprolol Tartrate (Metoprolol Tartrate 50 Mg Tab) 50 mg PO BID [facility] Stop: 02/16/24 20:59 Last Admin: 01/22/24 08:21 Dose: 50 mg Miscellaneous (Carbohydrates For Hypoglycemia ) 15 - 30 gm PO UD PRN PRN Reason: Hypoglycemia Protocol Stop: 02/13/24 23:57 Nystatin (Nystatin Powder 15gm Btl) 1 appln EXT BID PRN PRN Reason: Rash Stop: 02/14/24 01:38 Last Admin: 01/16/24 08:32 Dose: 1 appln Olanzapine (Olanzapine 10 Mg/2.1 Ml Sdv) 10 mg IM ONE PRN PRN Reason: Agitation Ondansetron HCl (Ondansetron Inj 2 Mg/Ml 2 Ml Vial) 4 mg IV Q6H PRN PRN Reason: NAUSEA/VOMITING Stop: 02/13/24 23:57 Pravastatin Sodium (Pravastatin Sod 40 Mg Tab) 80 mg PO DAILY@1700 [facility] Stop: 02/16/24 16:59 Last Admin: 01/21/24 17:25 Dose: 80 mg Rivaroxaban (Rivaroxaban 20 Mg Tab) 20 mg PO DAILY [facility] Stop: 02/17/24 08:59 Last Admin: 01/22/24 08:22 Dose: 20 mg
[2024-01-22 12:59] VITALS: BP 108/67
[2024-01-22] MEDS ORDERED: LOPERAMIDE HCL 2 MG CAP PO ONE (13:29)
[2024-01-22] MEDS: LOPERAMIDE HCL 2 MG CAP PO STA (13:30)
== END 2024-01-22 14:16 | disposition home health service (06) | DRG 884 ==
LOC: ED 17:57 → 4W 22:37 → SUATTDRO 22:37 → 4W 23:32